=== PATIENT | male | born 1945 | race Caucasian/White ===

== ENCOUNTER → 2023-02-18 10:47 | Outpatient (BNVA) | payer MEDICARE, OTHER, SELFPAY | PROVIDERS: Family Provider Family Medicine; Visit Provider Podiatrist Foot & Ankle Surgery | DX: I73.9 Peripheral vascular disease, unspecified (principal); L60.3 Nail dystrophy; G62.9 Polyneuropathy, unspecified; B35.1 Tinea unguium | CPT/HCPCS: 11721; 99203 ==

== ENCOUNTER 2023-12-06 13:56 | Outpatient (RCR) | payer MEDICARE, OTHER, SELFPAY | END 2023-12-07 23:59 | disposition home or self-care (01) | LOC: SST 13:56 | PROVIDERS: PCP Family Medicine; Visit Provider Family Medicine | DX: R13.19 Other dysphagia (principal) | CPT/HCPCS: 92610 ==

== ENCOUNTER 2024-01-04 10:45 | Outpatient (CLI) | payer MEDICARE, OTHER, SELFPAY ==
--- NOTE | 2024-01-04 10:50 | FL_ITS ---
WS: [id number] Exam: FL barium swallow modifd [id number] Date/Time of Exam: 01/04/2024 10:58 AM Reason For Exam: Other dysphagia Fluoroscopy time: Minutes # of spot films: Modified barium swallow study is performed in conjunction with the speech therapy service. The patient experienced considerable difficulty initiating the swallowing process specifically elevat ing the tongue of the hard palate to initiate swallowing. 1 episode of mild penetration into the dhruv ngeal inlet was noted when the patient ingested thin liquid barium solutions. The patient tolerated t he remaining barium consistency foodstuffs without aspiration or penetration. The patient had to swal low thin liquid to ingest the barium tablet. No aspiration was identified. IMPRESSION: 1. The patient experienced a single episode of mild penetration into the laryngeal inlet when ingesti ng thin liquid barium. 2. Moderate dysfunction involving the oral pharyngeal phase of swallowing. See above discussion. 3. No aspiration was observed. A report and recommendations will also follow from the speech therapy service.
== END 2024-01-04 10:46 | disposition home or self-care (01) ==
PROVIDERS: PCP Family Medicine; Visit Provider Family Medicine
DX: R13.19 Other dysphagia (principal)
CPT/HCPCS: 74230; 92611

== ENCOUNTER 2024-01-22 15:43 | Emergency (ER) | payer MEDICARE, OTHER, SELFPAY ==
[2024-01-22] VITALS (21 sets, daily range): BP systolic 124–176; BP diastolic 75–128; PULSE 95–110; RESP 18–21; TEMP 36.7; O2SAT 88–96; BMI 25.1
--- NOTE | 2024-01-22 15:46 | XRR_ITS ---
PROCEDURE INFORMATION: Exam: XR Chest Exam date and time: 01/22/2024 3:52 PM Age: 78 years old Clinical indication: Shortness of breath; Additional info: AMS TECHNIQUE: Imaging protocol: Radiologic exam of the chest. Views: 1 view. COMPARISON: CR XR chest 2V* [id number] 05/02/2018 9:08 AM FINDINGS: Lungs: Stable calcified granuloma in the left lower lobe. No focal consolidation. No pulmonary edema. Pleural spaces: No pleural effusion. No pneumothorax. Heart/Mediastinum: Stable mild enlargement of the cardiac silhouette. Mediastinal contours are unremarkable. Vasculature: Stable vascular calcifications in the aorta. Bones/joints: Unremarkable for age. XR/XR chest 1V [id number] IMPRESSION: 1. No acute cardiopulmonary process. 2. Incidental/nonacute findings are listed in the report.
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
--- NOTE | 2024-01-22 16:11 | ECG_ITS ---
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 Measurements Intervals [place] Rate: 98 P: 56 IN: 159 QRS: 51 QRSD: 93 T: 59 QT: 363 QTc: 464 Interpretive Statements SINUS RHYTHM Compared to ECG 05/02/2018 22:39:12 T-wave abnormality no longer present Electronically Signed On 01-22-2024 21:42:57 CDT by Pablo Sosa M.D. [id number]
[2024-01-22 16:59] LABS: Influenza A by IFA negative (Negative); Influenza B by IFA negative (Negative)
[2024-01-22 17:45] LABS: Basophils % 0.4 %; Eosinophils # 0.3 10^3/uL (0.0-0.8); Eosinophils % 2.4 %; Hematocrit 38.2 % (37-53); Lymphocytes # 2.1 10^3/uL (0.8-4.8); Lymphocytes % 18.3 %; Mean Corpuscular HGB Conc 32.5 g/dL (30-55); Mean Corpuscular Hemoglobin 32.4 pg (27-33); Mean Corpuscular Volume 99.7 fl (82-101); Mean Platelet Volume 10.4 fL (7.4-10.4); Monocytes # 0.8 10^3/uL (0.2-0.9); Monocytes % 6.7 %; Neutrophils # 8.13 10^3/uL (1.8-7.7); Neutrophils % 71.9 %; Nucleated Red Blood Cells % 0 %; Platelet Count 254 10^3/cmm (157-399); Red Blood Count 3.83 10^6/uL (3.85-5.65); Red Cell Distribution Width 15.3 % (12.1-15.1)
[2024-01-22 18:06] LABS: Alanine Aminotransferase 17 U/L (0-41); Alkaline Phosphatase 59 U/L (40-130); Anion Gap 12.4 (5-19); Aspartate Amino Transferase 17 U/L (0-40); Blood Urea Nitrogen 17 mg/dL (8-23); Calcium 9.6 mg/dL (8.5-10.5); Carbon Dioxide 28 mmol/L (22-29); Chloride 104 mmol/L (98-107); Creatinine Clr Calc Pharmacy 67.8374; Glucose 107 mg/dL (65-115); Osmolality Calculated 292 mOsm/kg (285-295); Potassium 4.4 mmol/L (3.5-5.1); Sodium 140 mmol/L (136-145); Total Bilirubin 0.2 mg/dL (0.15-1.2)
[2024-01-22 18:08] LABS: Acetaminophen < 5.0 ug/mL (10-30); Alcohol Level < 10 mg/dL (0-10); Salicylate < 0.3 mg/dL (3-10)
--- NOTE | 2024-01-22 18:25 | CTR_ITS ---
PROCEDURE INFORMATION: Exam: CT Head Without Contrast Exam date and time: 01/22/2024 6:49 PM Age: 78 years old Clinical indication: Altered mental status/memory loss; Confusion or disorientation; Additional info: AMS TECHNIQUE: Imaging protocol: Computed tomography of the head without contrast. Sagittal and coronal reformatted images were created and reviewed. Radiation optimization: All CT scans at this facility use at least one of these dose optimization techniques: automated exposure control; mA and/or kV adjustment per patient size (includes targeted exams where dose is matched to clinical indication); or iterative reconstruction. COMPARISON: No relevant prior studies available. RADIATION DOSE METRICS: Total DLP (mGy-cm): 2274.5 FINDINGS: Brain: No acute intracranial hemorrhage. No acute infarct. No intra-axial or extra-axial masses. García-white matter differentiation is preserved. No cerebral edema. No extra-axial fluid collections. No midline shift. No evidence for Chiari 1 malformation. Moderate atrophy of the brain parenchyma. Moderately decreased attenuation in the deep white matter, consistent with moderate chronic microangiopathic change. Cerebral ventricles: 5.1 x 6.1 cm hypodense focus in the anterior 3rd ventricle consistent with a colloid cyst (series 8, image 20). No hydrocephalus. Paranasal sinuses: Visualized paranasal sinuses are clear. Mastoid air cells: Mastoid air cells are clear bilaterally. Orbital cavities: No acute abnormality in the visualized orbits. Bones/joints: No acute fracture. Soft tissues: No acute abnormality of the extracranial soft tissues. Vasculature: Moderate atherosclerotic changes in the visualized arteries. CT/CT head wo con* [id number] IMPRESSION: 1. No acute abnormality of the brain. 2. Small hypodense focus in the anterior 3rd ventricle consistent with a colloid cyst. 3. Moderate atrophy of the brain parenchyma. 4. Moderate chronic white matter microangiopathic change. 5. Incidental/nonacute findings are listed in the report.
[2024-01-22 18:27] LABS: Adenovirus Not Detected (NOT DETECT); Chlamydia Pneumoniae Not Detected (NOT DETECT); Coronavirus 229E,HKU1,NL63,OC4 Not Detected (NOT DETECT); Human Metapneumovirus Not Detected (NOT DETECT); Human Rhinovirus/Enterovirus Not Detected (NOT DETECT); Influenza A Not Detected (NOT DETECT); Influenza A H1 Not Detected (NOT DETECT); Influenza A H1-2009 Not Detected (NOT DETECT); Influenza A H3 Not Detected (NOT DETECT); Influenza B Not Detected (NOT DETECT); Mycoplasma Pneumoniae Not Detected (NOT DETECT); Parainfluenza Virus Type 1 Not Detected (NOT DETECT); Parainfluenza Virus Type 2 Not Detected (NOT DETECT); Parainfluenza Virus Type 3 Not Detected (NOT DETECT); Parainfluenza Virus Type 4 Not Detected (NOT DETECT); Respiratory Syncytial Virus A Not Detected (NOT DETECT); Respiratory Syncytial Virus B Not Detected (NOT DETECT); SARS-COV-2 Not Detected (NOT DETECT)
--- NOTE | 2024-01-22 18:38 | PC.NURSE ---
Pt had orginally reported that she arrived in town yesterday was staying with a friend and today that friend dropped her off here, however now she is saying she arrived around noon today was assisted by a yarsanism deacon to get into her daughters house however was unable to get up the stairs so the Yazdanism Deacon took the pt to his house then brought her here. This mortgage underwriter asked who would be helping her at home and changing her dressings, pt stated I have no home and my daughter is resting so I have no one who can help me . This mortgage underwriter took the number of the pt's daughter Criss Matta, [phone], I attempted to call but was only able to leave a message. Pt is reporting she has an appt with wound care tomorrow. Will try to call daughter again to investigate the situation.
[2024-01-22 18:55] LABS: Amphetamines Screen Urine Negative (Negative); Barbiturates Screen Urine Negative (Negative); Benzodiazepines Screen Urine Positive (Negative); Cocaine Screen Urine Negative (Negative); Opiate Screen Urine Negative (Negative); PCP Screen Urine Negative (Negative); THC Screen Urine Negative (Negative)
[2024-01-22 19:01] LABS: Amorphous Sediment Urine TRACE /hpf; Bacteria Urine TRACE /hpf; Bilirubin Urine Neg (Negative); Blood Urine Neg (Negative); Glucose Urine UA Norm (Normal); Ketones Urine Negative (Negative); Leukocyte Esterase Urine Negative (Negative); Mucus Urine TRACE /hpf; Nitrate Urine Negative (Negative); Protein Urine Neg (Negative); RBC Urine 0-4 /hpf (0-2); Squamous Epithelial Cell Urine 0-4 /hpf (0-5); Urine Appearance Clear (CLEAR); Urine Color Yellow (Yellow); Urobilinogen Urine Neg (Negative); WBC Urine 0-4 /hpf (0-5); pH Urine 6 (5-7)
[2024-01-22 19:20] LABS: Thyroid Stimulating Hormone 2.02 uIU/mL (0.27-4.20)
[2024-01-22] MEDS: OLANZapine 10 mg ODT 20 MG PO (19:48)
[2024-01-22 21:27] LABS: RSV Transfer Patient (ED) Negative (Negative)
[2024-01-22] MEDS: LORazepam 2 mg/mL INJ 10 mL MDV IM (21:48)
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
[2024-01-23 00:30] VITALS: BP 145/77; PULSE 105; RESP 21; O2SAT 95
--- NOTE | 2024-01-23 01:14 | DCPLANNER ---
[place] facilities contacted: [facility] Called 01/22/2024 at 2033. Per Phoebe, they have no beds available. [facility] Called 01/22/2024 at 2035. Per Eligio, they cannot accept this patient due to his being a fall risk. [facility] 01/22/2024 at 2037[facility] 01/22/2024 at 2039. Spoke to Bonnie, faxed paperwork at [phone]. Denied for acuity at 2338. [facility] Called 01/22/2024 at 2338. Per Lillian, they have no beds available. [facility] Called 01/22/2024 at 2339. Spoke to Dora, paperwork faxed at [phone]. Accepted by Dr. Stephen 01/23/2024 at 0044.
[2024-01-23] MEDS: ziprasidone 20 mg/mL SDV IM (01:49)
[2024-01-23] MEDS: LORazepam 2 mg/mL INJ 10 mL MDV IM (01:49)
--- NOTE | 2024-01-23 01:51 | PC.NURSE ---
at 0100 cfo controller alerted RN that pt was getting out of bed. pt refused to sit back into the bed despite being fall risk. pt unable to comprehend due to AMS. staff assisted pt back into bed and redirected him. medications administered at time listed in JAN. pt calmed down at the time ems arrived.
[2024-01-23 01:56] VITALS: BP 145/77; PULSE 105; RESP 21; TEMP 36.7; O2SAT 95
== END 2024-01-23 02:00 ==
PROVIDERS: Emergency Medicine; Emergency Provider Emergency Medicine; PCP Family Medicine
DX: F03.911 Unspecified dementia, unspecified severity, with agitation (principal); Z11.52 Encounter for screening for COVID-19
CPT/HCPCS: 36415; 70450; 71045; 80053; 80306; 80307; 81001; 84443; 85025; 87635; 87804; 87899; 93005; 96372; 99285; J2060; J3486

== ENCOUNTER 2025-11-01 15:42 | Inpatient (IN) | payer MEDICARE, OTHER, MEDICAID, SELFPAY ==
[2025-11-01 15:44] VITALS: BP 122/86; PULSE 66; RESP 16; TEMP 36.4; O2SAT 92
--- NOTE | 2025-11-01 15:50 | CTR_ITS ---
PROCEDURE INFORMATION: Exam: CT Cervical Spine Without Contrast Exam date and time: 11/01/2025 3:55 PM Age: 80 years old Clinical indication: Injury or trauma; Fall; Blunt trauma TECHNIQUE: Imaging protocol: Computed tomography of the cervical spine without contrast. Radiation optimization: All CT scans at this facility use at least one of these dose optimization techniques: automated exposure control; mA and/or kV adjustment per patient size (includes targeted exams where dose is matched to clinical indication); or iterative reconstruction. COMPARISON: CT head wo con* [id number] 01/22/2024 6:49 PM RADIATION DOSE METRICS: Total DLP (mGy-cm): 310.06 FINDINGS: Bones: There is loss of the normal lordosis of the cervical spine. Multilevel degenerative changes are present with disc space narrowing and marginal osteophytes. No acute fractures are identified. Neural foraminal narrowing due to degenerative changes is present on the right at C3-C4 on the left at C4-C5, bilaterally at C5-C6 , C6-C7 , and C7-T1. Lungs: There is centrilobular emphysema. Soft tissues: Unremarkable. CT/CT cervical spin wo con* [id number] IMPRESSION: Multilevel degenerative changes. No acute abnormality identified.
--- NOTE | 2025-11-01 15:50 | XRR_ITS ---
PROCEDURE INFORMATION: Exam: XR Chest Exam date and time: 11/01/2025 4:17 PM Age: 80 years old Clinical indication: Fall TECHNIQUE: Imaging protocol: Radiologic exam of the chest. Views: 1 view. COMPARISON: CR XR chest 1V [id number] 01/22/2024 3:52 PM FINDINGS: Lungs: No pulmonary consolidation. Pleural spaces: No pneumothorax. No pleural effusion. Heart/Mediastinum: Unremarkable. No cardiomegaly. Bones/joints: Unremarkable. XR/XR chest 1V portable [id number] IMPRESSION: No acute cardiopulmonary abnormality.
--- NOTE | 2025-11-01 15:50 | XRR_ITS ---
PROCEDURE INFORMATION: Exam: XR Right Hip Exam date and time: 11/01/2025 4:05 PM Age: 80 years old Clinical indication: Fall, hip pain TECHNIQUE: Imaging protocol: Radiologic exam of the right hip. Views: 2 or 3 views hip with pelvis when performed. COMPARISON: No relevant prior studies available. FINDINGS: Bones/joints: There is a fracture of the right femoral neck with mild displacement and impaction. Alignment of the right hip is maintained. Pelvic ring appears intact. Bilateral hip osteoarthritis. Degenerative changes of the lower lumbar spine. Soft tissues: Unremarkable. XR/XR hip RT 2-3V wo/w pel* [id number] IMPRESSION: Right femoral neck fracture with mild displacement and impaction.
--- NOTE | 2025-11-01 15:50 | CTR_ITS ---
PROCEDURE INFORMATION: Exam: CT Head Without Contrast Exam date and time: 11/01/2025 3:55 PM Age: 80 years old Clinical indication: Injury or trauma; Fall; Blunt trauma (contusions or hematomas); Loss of consciousness unknown TECHNIQUE: Imaging protocol: Computed tomography of the head without contrast. Radiation optimization: All CT scans at this facility use at least one of these dose optimization techniques: automated exposure control; mA and/or kV adjustment per patient size (includes targeted exams where dose is matched to clinical indication); or iterative reconstruction. COMPARISON: CT head wo con* [id number] 01/22/2024 6:49 PM RADIATION DOSE METRICS: Total DLP (mGy-cm): 1037.75 FINDINGS: Brain: No acute intracranial hemorrhage. There is a hyperattenuating mass in the 3rd ventricle which measures 0.8 x 0.8 cm. This is enlarged compared to the prior study when it measured 0.7 x 0.5 cm. No other masses are identified. No edema identified. Cerebral ventricles: There is generalized enlargement of the ventricles, sulci and cisterns consistent with involutional changes. No midline shift is identified. Paranasal sinuses: Visualized sinuses are unremarkable. No fluid levels. Mastoid air cells: Visualized mastoid air cells are well aerated. Bones: Unremarkable. No acute fracture. Soft tissues: Unremarkable. CT/CT head wo con* [id number] IMPRESSION: 1. No acute abnormality identified. 2. 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 3. Generalized involutional changes.
--- NOTE | 2025-11-01 15:50 | ECG_ITS ---
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1945 Requested By: Svetlana Ruiz Order Number: [id number] Reading MD: Measurements Intervals Lamy Rate: 66 P: 22 [place]: 156 QRS: 213 QRSD: 166 T: 8 QT: 504 QTc: 529 Interpretive Statements SINUS RHYTHM WITH OCCASIONAL VENTRICULAR PREMATURE COMPLEXES POSSIBLE LEFT ATRIAL ENLARGEMENT [-0.1mV P-WAVE IN V1/V2] RIGHT AXIS DEVIATION [QRS AXIS > 100] RIGHT BUNDLE BRANCH BLOCK AND POSSIBLE RIGHT VENTRICULAR HYPERTROPHY [RBBB, 1.5 mV R IN V1, RAD] ANTEROSEPTAL MYOCARDIAL INFARCTION , OF INDETERMINATE AGE [40+ ms Q WAVE IN V1-V4] [email or web address]
--- OUTSIDE RECORDS SUMMARY | 2025-11-01 15:50 | XMS_ITS | Data Portability ---
Author Organization [facility] Abdullahi Emilia [facility] Doroteo Fowler, [facility] Address [address] [address] Care Team Providers Care Charge Master Specialist Name Role Phone MICHELLE LIM Primary Care Provider Unavailabl e Assessment Encounter Date Assessment Date Assessment LastModified by Organization Details LastModified Time 04/16/2025 04/16/2025 I reviewed the patient's recent labs, vital signs, medications, and plan of care. I recommend no other change sat this time. Not available 04/24/2025 15:38:54 08/20/2025 08/20/2025 I reviewed the patient's recent labs, vital signs, medications, and plan of care. I recommend no other change sat this time. [email or web address] Not available 09/13/2025 14:02:29 10/15/2025 10/15/2025 I have reviewed the resident's vital signs, current labs, current meds, and plan of care and recommend no changes at this time. Not available 10/15/2025 16:26:57 Plan of Treatment Reminders Order Date Submit Date Provider Last Modified By Organization Details Last Modified Time Details Appointments None record ed. Lab None record ed. Referral None record ed. Procedures None record ed. Surgeries None record ed. Imaging None record ed. Medication Orders None record ed. Patient TargetsNo targets recorded. Patient InstructionsNo instructions recorded. Reason for Referral None Reported. Problems Name Problem SNOMED Code Status Onset Date Resolution Date Notes Provider Name and Address Organization Details Recorded Time Myocardi al infarcti on 46448928 Completed 202201/02/2025 Myocardi al Infarcti on; 2003; 12/22/19 2:17PM by Karen Juarez, Office Visit; Promoted ; acuity set as *; Removal Reason: resolved DILMA HAEFRYLAND null, [facility] 5 16:17:00 Multiple actinic keratose s 497054143 Active 2022 DILMA HAEFRYLAND null, [facility] 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 5 12:52:12 [facility] hyperten xochitl 07782412 Active 2022 [facility]LAND [facility] 5 16:16:21 Esophage al dysphagi a 00576833 Active 2023 DILMA CARMONA null, [facility] 5 16:16:16 Chronic obstruct letha pulmonar y disease 65740847 Active 2023 DILMA pretty, [facility] 5 16:16:06 Hallucin ations 2031470 Completed 202301/02/2025 [facility] 5 16:16:30 Vascular dementia with behavior al disturba [facility] 14939301819 9104 Active 2024 EPHRAIM pretty, [facility] 5 12:52:08 Anxiety disorder 013751675 Active 2024 [facility] 5 12:51:47 Problem Notes None recorded. Medical Equipment None Reported. Allergies Allergen ID Allergen Name Allergen Category Reaction Reaction Severity Criticality Documentation Date Start Date Code Code System Note Provider Name and Address Organization Details Recorded Time 2254 Augmentin medicatio n Not available Not available Not available 03/03/2023 96712 2 RxNorm JOSE DAVE maria de jesus [facility] 3 12:24:35 22307 cephalexi n medicatio n Not available Not available Not available 04/16/20251 RxNorm EPHRAIM MARCY pretty [facility] 5 12:48:36 Medications Name Sig Start Date Stop Date Status Note LastModified by Organization Details LastModified Time fluticaso ne 250 mcg-salme terol 50 mcg/dose blistr powdr for inhalatio n INHALE 1 DOSE BY MOUTH TWICE DAILY 04/16 completed Not Available Not Available Not Available doxycycli ne hyclate 100 mg capsule 03/04 completed Not Available Not Available Not Available trazodone 50 mg tablet Take 1 tablet every day by oral route at bedtime. active Not Available Not Available No t Available cetirizin e 10 mg tablet daily 04/16 completed Recorded 10/16/20 21 9:47AM by Karen Juarez, Office Visit; Refill Quantity : 30; Tablet; Not Available Not Available Not Available pravastat in 40 mg tablet Take 1 tablet by mouth once daily active Not Available Not Available No t Available donepezil 10 mg tablet TAKE 1 TABLET BY MOUTH ONCE DAILY active Not Available Not Available No t Available lisinopri l 20 mg tablet Take 1 tablet by mouth once daily active Not Available Not Available No t Available prednison e 20 mg tablet TAKE 1 TABLET BY MOUTH ONCE DAILY active Not Available Not Available No t Available melatonin 3 mg tablet Take 1 tablet every day by oral route at bedtime. active Not Available Not Available No t Available olanzapin e 2.5 mg tablet TAKE 1 TABLET BY MOUTH TWICE DAILY 02/07 completed Not Available Not Available Not Available aspirin 81 mg tablet,de layed release one daily 2007 active Not Available Not Available Not Avai lable [facility] 10 mg tablet daily 04/16 completed Recorded 10/16/20 21 9:47AM by Karen Juarez, Office Visit; Refill Quantity : 30; Tablet; Not Available Not Available Not Available albuterol sulfate HFA 90 mcg/actua tion aerosol inhaler INHALE 2 PUFFS BY MOUTH EVERY 4 HOURS NEEDED 04/16 completed Not Available Not Available Not Available fluoxetin e 20 mg capsule Take 1 capsule every day by oral route. active Not Available Not Available No t Available memantine 10 mg tablet Take 1 tablet by mouth twice daily active Not Available Not Available No t Available olanzapin e-fluoxet ine 6 mg-25 mg capsule 04/16 completed Not Available Not Available Not Available lisinopri l daily 08/30 completed RM/bn; Recorded 10/25/20 22 8:22AM by Michelle Lim MD, Refill Request; Refill Quantity : 90; Tablet; Not Available Not Available Not Available Multivita mins daily 04/16 completed 0; Recorded 12/22/19 23 2:17PM by Karen Juarez, Office Visit; Not Available Not Available Not Available donepezil daily 08/30 completed continue this. RM/sd; Recorded 09/28/20 22 7:34AM by Michelle Lim MD, Refill Request; Refill Quantity : 90; Tablet; Not Available Not Available Not Available Vitals Date Recorded Body height Body mass index (BMI) Body weight Oxygen saturation Heart rate Body temperature Systolic And Diastolic Provider Name and Address Organization Details Last Updated DateTime 5 167.64 cm 28.1 kg/m2 12792.0 7 g 95 % 68 /min 97.9 [degF] 139/70 mm[Hg] [facility] 5 11:53:32 Date Recorded Body height Body mass index (BMI) Body weight Oxygen saturation Heart rate Body temperature Systolic And Diastolic Provider Name and Address Organization Details Last Updated DateTime 5 167.64 cm 29.1 kg/m2 12957.6 3 g 96 % 69 /min 97.8 [degF] 136/82 mm[Hg] [facility] 5 11:01:47 Date Recorded Body height Body mass index (BMI) Body weight Oxygen saturation Heart rate Respiratory rate Body temperature Systolic And Diastolic Provider Name and Address Organization Details Last Updated DateTime 5 167.64 cm 28.7 kg/m2 10520.4 4 g 96 % 62 /min 19 /min 97.5 [degF] 126/85 mm[Hg] EPHRAIM [facility] 5 12:38:04 Date Recorded Body height Body mass index (BMI) Body weight Oxygen saturation Heart rate Respiratory rate Body temperature Systolic And Diastolic Provider Name and Address Organization Details Last Updated DateTime 5 167.64 cm 28.2 kg/m2 85318.6 6 g 95 % 71 /min 20 /min 98.7 [degF] 102/68 mm[Hg] DILMA ALISAGAURANG [facility] 5 12:47:30 Date Recorded Body height Body mass index (BMI) Body weight Oxygen saturation Heart rate Respiratory rate Body temperature Systolic And Diastolic Provider Name and Address Organization Details Last Updated DateTime 5 167.64 cm 27.9 kg/m2 87144.4 8 g 94 % 70 /min 16 /min 98 [degF] 128/60 mm[Hg] [facility] 10:17:31 Social History Question Answer Notes LastModified by Organizat ion Details LastModified Time Tobacco Smoking Status Never Smoker VICKI pretty [facility] 04/22/2023 13:48:16 What Was The Date Of Your Most Recent Tobacco Screening? 04/16/2025 [email or web address] Information not available 04/16/2025 Sex: Unknown Functional Status Question Answer Note LastModified by Organization D etails LastModified Time Do you or have you ever used any other forms of tobacco or nicotine? No [email or web address] Information not available 04/16/2025 What is your level of alcohol consumption? None [email or web address] Information not available 04/22/2023 Do you or have you ever used any nicotine-free cigarettes, vape, or chewing tobacco? No [email or web address] Information not available 04/16/2025 Mental Status None recorded. Family History Nothing Reported. Medical History No medical history recorded. Immunizations Vaccine Type Date Status Note Provider Nam e and Address Organization Details Recorded Time Influenza, split virus, trivalent, preservative 2 completed Not Available [facility] 06/04/2023 02:43:47 Influenza, split virus, trivalent, preservative 1 completed Not Available [facility] 06/04/2023 02:43:47 pneumococcal polysaccharide PPV23 2 completed Not Available [facility] 06/04/2023 02:43:47 pneumococcal polysaccharide PPV23 7 [facility] 04/16/2025 12:48:19 Influenza, split virus, trivalent, preservative 4 completed Not Available [facility] 06/04/2023 02:43:47 Influenza, high-dose, trivalent, PF 5 completed Not Available [facility] 10/15/2025 08:16:12 COVID-19, mRNA, LNP-S, PF, 30 mcg/0.3 mL dose 1 completed Not Available [facility] 10/15/2025 08:16:12 COVID-19, mRNA, LNP-S, PF, 30 mcg/0.3 mL dose 1 completed Not Available [facility] 10/15/2025 08:16:12 COVID-19, mRNA, LNP-S, PF, 30 mcg/0.3 mL dose 1 completed Not Available [facility] 10/15/2025 08:16:12 COVID-19, mRNA, LNP-S, PF, 30 mcg/0.3 mL dose 2 completed Not Available [facility] 10/15/2025 08:16:12 zoster recombinant 2 completed Not Available [facility] 10/15/2025 08:16:12 Tdap 2 completed Not Available [facility] 10/15/2025 08:16:12 Influenza, high-dose, quadrivalent, PF 2 completed Not Available [facility] 10/15/2025 08:16:12 COVID-19, mRNA, LNP-S, bivalent, PF, 30 mcg/0.3 mL dose 2 completed Not Available [facility] 10/15/2025 08:16:12 zoster recombinant 2 completed Not Available [facility] 10/15/2025 08:16:12 COVID-19, mRNA, LNP-S, PF, 50 mcg/0.5 mL 3 completed Not Available [facility] 10/15/2025 08:16:12 Influenza, high-dose, quadrivalent, PF 3 completed Not Available [facility] 10/15/2025 08:16:12 COVID-19, mRNA, LNP-S, PF, 50 mcg/0.5 mL 4 completed Not Available [facility] 10/15/2025 08:16:12 COVID-19, mRNA, LNP-S, PF, 50 mcg/0.5 mL 4 completed Not Available [facility] 10/15/2025 08:16:12 Influenza, high-dose, quadrivalent, PF 1 completed EPHRAIM VIDAL null, [facility] 04/16/2025 12:48:19 Pneumococcal conjugate PCV 13 6 completed EPHRAIM VIDAL null, [facility] 04/16/2025 12:48:20 Influenza, high-dose, trivalent, PF 9 completed EPHRAIM VIDAL null, [facility] 04/16/2025 12:48:20 Influenza, high-dose, trivalent, PF 6 completed EPHRAIM VIDAL null, [facility] 04/16/2025 12:48:20 Influenza, high-dose, trivalent, PF 7 completed EPHRAIM VIDAL null, [facility] 04/16/2025 12:48:20 Influenza, high-dose, trivalent, PF 8 completed EPHRAIM VIDAL [facility] 04/16/2025 12:48:20 COVID-19, mRNA, LNP-S, PF, 50 mcg/0.5 mL 5 completed Not Available [facility] 10/15/2025 08:16:12 Past Encounters Encounter ID Performer Location Encounter Start Date Encounter Closed Date Diagnosis/Indication Diagnosis SNOMED-CT Code Diagnosis ICD10 Code Diagnosis IMO Codes Diagnosis Note [id number] SOMMER ARGUETA [facility] [address] [place], [place] [address] 03/04/2023 13:50:16 03/04/2023 19:09:56 Adult health examination 039678641 Z00.00 Screening for cardiovascular system disease 610827642 Z13.6 Hyperglycemia 05556762 R 73.9 [id number] Michelle Lim MD [facility] [address] [place], [place] [address] 04/22/2023 13:36:00 04/22/2023 15:15:03 Multiple actinic keratoses 794603074 L57.0 Primary de generative dementia of the Alzheimer type, senile onset 654485829 G30.1 Essential hypertension 99246304 I10 [id number] Michelle Lim MD [facility] [address] [place], [place] [address] 08/30/2023 15:44:42 08/30/2023 18:59:56 Essential hypertension 22435382 I10 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 [id number] Michelle Lim MD [facility] [address] [place] [address] 01/13/2024 14:19:20 01/13/2024 15:25:54 Dementia 36350407 F03.90 Progressiv e. Chronic ob structive pulmonary disease 73993727 J44.9 Hallucinations 6465477 R 44.3 Esophageal dysphagia 408 60364 R13.19 swallowing a little better. [id number] BERNADETTE GOOD PA-C [facility] [address] [place], [place] [address] 12/19/2024 12:28:37 01/17/2025 09:45:08 Dementia 62801769 F03.90 current:DE PAKOTE 250MG TID, DONEPEZIL 10MG QID, MELATONIN, OLANZAPRIN E/paroxeti ne, TRAZODONE 50MG QHSI would like to GDR his Zyprexa/pa roxetine combo pill by reducing to half does. If does well will contineu to GDR. Monitor behaviors. Essential hypertension 30120407 I10 [id number] BERNADETTE GOOD PA-C [facility] [address] [place] [address] 01/09/2025 11:59:32 02/04/2025 13:16:03 Vascular dementia with behavioral disturbance 7244708283 62070 F01.518 GDR DECREASE OLANZAPINE /FLUOXETIN E 6/25mg po qdQD DECREASE DEPAKOTE 250MG BID (from tid)monito r for increase distress, anxiety or behaviors. [id number] BERNADETTE GOOD PA-C [facility] [address] [place] [address] 02/06/2025 12:04:53 02/08/2025 14:31:39 Dementia 81783728 F03.90 Chronic ob structive pulmonary disease 26568119 J44.9 stable on AdvairCCA form filled out during today's office visit Hyperlipidemia 68195543 E78.5 stable on pravastati n Vascular d ementia with behavioral disturbance 0200158724 52464 F01.518 3.6.25 GDR DECREASE OLANZAPINE /FLUOXETIN E 6/25mg po qdQD DECREASE DEPAKOTE 250MG BID (from tid)4.2.25 d/c zyprexa continue fluoxetine 20mg qd decrease depakote 12.5mg 1 po bid x 7 days then d/cmonitor for increase distress, anxiety or behaviors. [id number] BERNADETTE GOOD PA-C [facility] [address] [place] [address] 5 03/13/2025 12:38:39 03/29/2025 16:53:39 Dementia 97418354 F03.90 [id number] DOING WELL OFF DEPAKOTE AND ZYPREXASTI LL ON FLUOXETINE 20MG QDTRAZODON E 50MG HS [id number] Jaxon Good MD [facility] [address] [place] [address] 5 04/16/2025 10:41:04 04/24/2025 17:11:26 Dementia 59927642 F03.90 [id number] Essential hypertension 20675281 I10 [id number] Jaxon Good MD [facility] [address] [place] [address] 5 06/18/2025 10:27:42 06/19/2025 13:38:28 Acute exacerbation of chronic obstructive pulmonary disease 842258213 J44.1 [id number] [facility]. macrolide, steroid. [id number] Jaxon Good MD [facility] [address] [place] [address] 5 08/20/2025 08:00:51 09/16/2025 07:50:54 Vascular dementia with behavioral disturbance 5840767064 78371 F01.229 [id number] BERNADETTE GOOD PA-C [facility] [address] [place] [address] 5 09/18/2025 12:41:20 10/15/2025 17:19:29 Vascular dementia 568471970 F01.B4 0941218050 ativan .5mg1 po qd prn x 30 days prn monitor usage and if consistant will continue if he is not using then we will dcHe is already on aracept and namenda and SSRI and trazadone. [id number] Jaxon Good MD [facility] [address] [place] [address] 10/15/2025 08:16:00 10/16/2025 12:17:18 Vascular dementia with behavioral disturbance 6608712074 28900 F01.518 Health Concerns Section Related Observation LastModified by Organization Detai ls LastModified Time None Recorded Concern Status LastModified by Organization Details LastModified Time None Recorded Advance Directives Directive None Recorded Payers Insurance Date Sequence Insurance Name Policy Number Policy Ortiz Covered Member ID Ortiz Member ID Guarantor Name 10/14/2025 1 [place]/A DVANTAGE - PPO) [id number] Dong Jackson [id number] Dong Jackson Notes Date Note Type Note Provider Name and Address Organization Details Recorded Time 04/16/2025 text/html Hypertension IM/FMReported by PatientHPIFor quality, patient reportshere for check-up. For severity, patient reportsmild. For onset/timing, patient reportsgradual onset. For alleviating factors, patient reportsmedication. For associated symptoms, patient reportsno shortness of breathandno palpitations. DementiaReported by Patient Patient seen today by Dr. Good at [facility] Jaxon Good MD [address] [place] [address], [phone], [facility] 04/24/2025 15:39:10 06/18/2025 text/html Hypertension IM/FMReported by PatientHPIFor quality, patient reportshere for check-up. For severity, patient reportsmild. For onset/timing, patient reportsgradual onset. For alleviating factors, patient reportsmedication. For associated symptoms, patient reportsno shortness of breathandno palpitations. DementiaReported by Patientunchanged and without sign of progression since last visit Patient seen today by Dr. Good at [facility] patient reports having shortness of breath. he cannot say how long he has had this just that it is harder to breathe. he was a smoker but not for some time. he denies fever or chills. cough with clear sputumwheezing Jaxon Good MD [address] [place] [address], [phone], [facility] 06/18/2025 14:56:16 08/20/2025 text/html Hypertension IM/FMReported by PatientHPIFor quality, patient reportshere for check-up. For severity, patient reportsmild. For onset/timing, patient reportsgradual onset. For alleviating factors, patient reportsmedication. For associated symptoms, patient reportsno shortness of breathandno palpitations. DementiaReported by Patientunchanged and without sign of progression since last visit Patient seen today by Dr. Good at [facility] Jaxon Good MD [address] [place] [address], [phone], [facility] 09/13/2025 14:02:39 09/18/2025 text/html DementiaReported by PatientHPIFor associated symptoms, patient reportsdepression. For quality, patient reportsshort term memory loss,disorientation to place, anddisorientation to time. For severity, patient reportsmoderate. For duration, patient reports6 months. Pt ike wants him reevaluated for increase in anxiety. Staff states he is good with them but when he talks to his he will get weepy and want to go home. She has not been able to come visit as much due to her own health issues. Jaxon Good MD [address] [place] [address], [phone], [facility] 10/15/2025 12:50:01 10/15/2025 text/html Hypertension IM/FMReported by PatientHPIFor quality, patient reportshere for check-up. For severity, patient reportsmild. For onset/timing, patient reportsgradual onset. For alleviating factors, patient reportsmedication. For associated symptoms, patient reportsno shortness of breathandno palpitations. DementiaReported by Patientunchanged and without sign of progression since last visit per staff he is pleasantly confused Patient seen today by Dr. Good at [facility] Jaxon Good MD [address] [place] [address], [phone], [facility], Doroteo 10/15/2025 16:27:10
--- OUTSIDE RECORDS SUMMARY | 2025-11-01 15:50 | XMS_ITS | Clinical Summary ---
Author Organization [employer] [facility] Address [address] 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
--- OUTSIDE RECORDS SUMMARY | 2025-11-01 15:50 | XMS_ITS | Continuity of Care Document ---
Author Organization [facility] Doroteo Fowler, [facility] ([facility]) Address [address] [place] [address] Care Team Providers Care Bowling Alley Attendant Name Role Phone MICHELLE LIM Primary Care Provider Unavailabl e Assessment Encounter Date Assessment Date Assessment LastModified by Organization Details LastModified Time 08/20/2025 08/20/2025 I reviewed the patient's recent labs, vital signs, medications, and plan of care. I recommend no other change sat this time. 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 5 12:52:12 Essentia l hyperten xochitl 76783383 Active 2022 DILMA CARMONA null, [facility] 5 16:16:21 Esophage al dysphagi a 33629532 Active 2023 DILMA CARMONA [facility] [place], [facility] 5 16:16:16 Chronic obstruct letha pulmonar y disease 76328182 Active 2023 DILMA CARMONA [facility] [place], [facility] 5 16:16:06 Hallucin ations 1189427 Completed 202301/02/2025 DILMA CARMONA [facility] 5 16:16:30 Vascular dementia with behavior al disturba [facility] 73342996457 9104 Active 2024 EPHRAIM VIDAL [facility] 5 12:52:08 Anxiety disorder 715404853 Active 2024 EPHRAIM VIDAL [facility] 5 12:51:47 Problem Notes None recorded. Medical Equipment None Reported. Allergies Allergen ID Allergen Name Allergen Category Reaction Reaction Severity Criticality Documentation Date Start Date Code Code System Note Provider Name and Address Organization Details Recorded Time 2253 Augmentin medicatio n Not available Not available Not available 03/03/2023 33458 2 RxNorm JOSE JOLIE [facility] 3 12:24:35 88444 cephalexi n medicatio n Not available Not available Not available 04/16/2025 2231 RxNorm EPHRAIM VIDAL [facility] 12:48:36 Medications Name Sig Start Date Stop [...] 2007 active Not Available Not Available Not Avmaritza magallanes [address] 10 mg tablet daily 04/16 [...] l daily 08/30 completed RM/bn; Recorded 10/25/20 8:22AM by Michelle Lim MD, Refill Request; Refill Quantity : 90; Tablet; Not Available Not Available Not Available Multivita mins daily 04/16 completed 0; Recorded 12/22/19 2:17PM by Karen Juarez, Office Visit; Not Available Not Available Not Available donepezil daily 08/30 completed continue this. RM/sd; Recorded 09/28/20 7:34AM by Michelle Lim MD, Refill Request; Refill Quantity : 90; Tablet; Not Available Not Available Not Available Vitals Date Recorded Body height Body mass index (BMI) Body weight Oxygen saturation Heart rate Respiratory rate Body temperature Systolic And Diastolic Provider Name and Address Organization Details Last Updated DateTime 167.64 cm 28.7 kg/m2 43317.4 4 g 96 % 62 /min 19 /min 97.5 [degF] 126/85 mm[Hg] EPHRAIM VIDAL [facility] 12:38:04 Social History Question Answer Notes LastModified by Organizat ion Details LastModified Time Tobacco Smoking Status Never Smoker VICKI pretty [facility] 04/22/2023 13:48:16 What Was The Date Of Your Most Recent Tobacco Screening? 04/16/2025 [email or web address] Information not available 04/16/2025 Sex: Unknown Functional Status Question Answer Note LastModified by Organization D etails LastModified Time Do you or have you ever used any other forms of tobacco or nicotine? No [email or web address] Information not available 04/16/2025 What is your level of alcohol consumption? None [email or web address] Information not available 04/22/2023 Do you or have you ever used any nicotine-free cigarettes, vape, or chewing tobacco? No Information not available 04/16/2025 Mental Status None recorded. Family History Nothing Reported. Medical History No medical history recorded. Immunizations Vaccine Type Date Status Note Provider Brian chong and Address Organization Details Recorded Time Influenza, split virus, trivalent, preservative 2 completed Not Available [facility] 06/04/2023 02:43:47 Influenza, split virus, trivalent, preservative 1 completed Not Available [facility] 06/04/2023 02:43:47 pneumococcal polysaccharide PPV23 2 completed Not Available [facility] 06/04/2023 02:43:47 pneumococcal polysaccharide PPV23 7 completed PEHRAIM pretty [facility] 04/16/2025 12:48:19 Influenza, split virus, trivalent, preservative 4 completed Not Available [facility] 06/04/2023 02:43:47 Influenza, high-dose, trivalent, PF 5 completed Not Available [facility] 10/15/2025 08:16:12 COVID-19, mRNA, LNP-S, PF, 30 mcg/0.3 mL dose 1 completed Not Available [facility] 10/15/2025 08:16:12 COVID-19, mRNA, LNP-S, PF, 30 mcg/0.3 mL dose 1 completed Not Available [facility] 10/15/2025 08:16:12 COVID-19, mRNA, LNP-S, PF, 30 mcg/0.3 mL dose 1 completed Not Available [facility] 10/15/2025 08:16:12 COVID-19, mRNA, LNP-S, PF, 30 mcg/0.3 mL dose 2 completed Not Available [facility] 10/15/2025 08:16:12 zoster recombinant 2 completed Not Available [facility] 10/15/2025 08:16:12 Tdap 2 completed Not Available [facility] 10/15/2025 08:16:12 Influenza, high-dose, quadrivalent, PF 2 completed Not Available [facility] 10/15/2025 08:16:12 COVID-19, mRNA, LNP-S, bivalent, PF, 30 mcg/0.3 mL dose 2 completed Not Available [facility] 10/15/2025 08:16:12 zoster recombinant 2 completed Not Available [facility] 10/15/2025 08:16:12 COVID-19, mRNA, LNP-S, PF, 50 mcg/0.5 mL 3 completed Not Available [facility] 10/15/2025 08:16:12 Influenza, high-dose, quadrivalent, PF 3 completed Not Available [facility] 10/15/2025 08:16:12 COVID-19, mRNA, LNP-S, PF, 50 mcg/0.5 mL 4 completed Not Available [facility] 10/15/2025 08:16:12 COVID-19, mRNA, LNP-S, PF, 50 mcg/0.5 mL 4 completed Not Available [facility] 10/15/2025 08:16:12 Influenza, high-dose, quadrivalent, PF 1 completed EPHRAIM pretty, [facility] 04/16/2025 12:48:19 Pneumococcal conjugate PCV 13 6 completed EPHRAIM VIDAL null, [facility] 04/16/2025 12:48:20 Influenza, high-dose, trivalent, PF 9 completed EPHRAIM VIDAL null, [facility] 04/16/2025 12:48:20 Influenza, high-dose, trivalent, PF 6 completed EPHRAIM VIDAL null, [facility] 04/16/2025 12:48:20 Influenza, high-dose, trivalent, PF 7 completed EPHRAIM VIDAL null, [facility] 04/16/2025 12:48:20 Influenza, high-dose, trivalent, PF 8 completed EPHRAIM VIDAL null, [facility] 04/16/2025 12:48:20 COVID-19, mRNA, LNP-S, PF, 50 mcg/0.5 mL 5 completed Not Available [facility] 10/15/2025 08:16:12 Past Encounters Encounter ID Performer Location Encounter Start Date Encounter Closed Date Diagnosis/Indication Diagnosis SNOMED-CT Code Diagnosis ICD10 Code Diagnosis IMO Codes Diagnosis Note [id number] Jaxon Geiger MD [facility] ([facility]) [address] [place] [address] 08/20/2025 08:00:51 09/16/2025 07:50:54 Vascular dementia with behavioral disturbance [id number] 18097 F01.518 Health Concerns Section Related Observation LastModified by Organization Detai ls LastModified Time None Recorded Concern Status LastModified by Organization Details LastModified Time None Recorded Payers Encounter Date Sequence Insurance Name Policy Number Policy Ortiz Covered Member ID Ortiz Member ID Guarantor Name 08/20/2025 1 [place]/A DVANTAGE - PPO) [id number] Dong Jackson [id number] Dong Jackson Notes Date Note Type Note Provider Name and Address Organization Details Recorded Time 08/20/2025 text/html Hypertension IM/FMReported by PatientHPIFor quality, patient reportshere for check-up. For severity, patient reportsmild. For onset/timing, patient reportsgradual onset. For alleviating factors, patient reportsmedication. For associated symptoms, patient reportsno shortness of breathandno palpitations. DementiaReported by Patientunchanged and without sign of progression since last visit Patient seen today by Dr. Geiger at [facility] Jaxon Geiger MD [address] [place] [address], [id number], [facility], Doroteo 09/13/2025 14:02:39
--- OUTSIDE RECORDS SUMMARY | 2025-11-01 15:50 | XMS_ITS | Continuity of Care Document ---
Author Organization [facility] Address [address] [place] [address] Care Team Providers Care Freight Brake Operator Name Role Phone Juanjo ROMAN, Dr. Coates Attending Physician Medications Medication Frequency Instructions Diagnosis Start Date End Date Status Last Administered albuterol sulfate 2.5 mg /3 mL (0.083 %) solution for nebulization Every 6 Hours - PRN 1, inhalation, Every 6 Hours - PRN, Clinical indication for wheezing 025 Active 10/28/2025 08:27 PM aspirin 81 mg tablet,chewable Once A Day 1 tab, oral, Once A Day Active 10/31/2025 06:27 AM Daily-Kylah (with folic acid) (multivitamin with folic acid) 400 mcg tablet Once A Day 1 tab, oral, Once A Day, TI for MVI 025 Active 10/31/2025 06:27 AM donepezil 10 mg tablet Once A Day 1 tab, oral, Once A Day 025 Active 10/31/2025 06:27 AM Dulcolax (bisacodyl) (bisacodyl) 10 mg suppository Once A Day - PRN 1 suppository, rectal, Once A Day - PRN, Give rectally if can't take p/o, if no results from [facility] 025 Active Dulcolax (bisacodyl) (bisacodyl) 5 mg tablet,delayed release (DR/EC) Once A Day - PRN 2 tabs/10mg, oral, Once A Day - PRN, Give if no results from [facility] 025 Active Fleet Enema (sodium phosphates) 19-7 gram/118 mL enema Once A Day - PRN 1 application, rectal, Once A Day - PRN, Give fleets if no results from [facility] and Dulcolax Active fluoxetine 20 mg capsule Once A Day 1, oral, Once A Day 025 Active 10/31/2025 06:27 AM lisinopril 20 mg tablet Once A Day 1 tab, oral, Once A Day 025 Active 10/31/2025 06:27 AM melatonin 3 mg tablet At Bedtime 1 tab, oral, At Bedtime 025 Active 10/31/2025 08:01 PM memantine 10 mg tablet Twice A Day 1 tab, oral, Twice A Day 025 Active 10/31/2025 08:01 PM Milk of Magnesia (magnesium hydroxide) 400 mg/5 mL suspension Every 72 Hours - PRN 30 ml, oral, Every 72 Hours - PRN, if no BM in 3 days DO NOT GIVE TO RENAL PATIENTS--GO TO DULCOLAX ORDERS 025 Active pravastatin 40 mg tablet Once A Day 1 tab, oral, Once A Day 025 Active 10/31/2025 06:27 AM trazodone 50 mg tablet At Bedtime 11/08 tab, oral, At Bedtime 025 Active 10/31/2025 08:01 PM Tylenol (acetaminophen) 325 mg tablet Every 6 Hours - PRN 2 tabs/650mg, oral, Every 6 Hours - PRN, as needed for PRN pain/increased temp May give rectally if necessary 025 Active 06/25/2025 06:34 PM lorazepam 0.5 mg tablet Once A Day - PRN 1, oral, Once A Day - PRN, Clinical indication: Anxiety x 30 days prn 025 2024 Not Active Problems Code Type Problem ICD Code Effective Date Status ICD-10 Alzheimer's disease, unspecified G30.9 02/2025 Active ICD-10 Vascular dementia, m oderate, with mood disturbance F01.B3 09/18/2025 Active ICD-10 Unspecified mood [affective] disorder F39 01/16/2025 Active ICD-10 Vascular dementia, moderate, with anxiety F01.B 4 09/18/2025 Active ICD-10 Anxiety disorder, unspecified F41.9 2024 Active ICD-10 Vascular dementia, m oderate, with other behavioral disturbance F01.B18 09/18/2025 Active ICD-10 Dysphagia, oropharyngeal phase R13.12 12/17 Active ICD-10 Chronic obstructive pulmonary disease, unspecified J44.9 02/06/2025 Active ICD-10 Essential (primary) hypertension I10 10/2025 Active ICD-10 Hyperlipidemia, unspecified E78.5 02/07/20 25 Active ICD-10 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 Z79.82 0 12/11/2024 Active ICD-10 Insomnia, unspecified G47.00 01/16/2025 Act letha ICD-10 Do not resuscitate Z66 12/11/2024 Active Current Allergies and Intolerances Category Substance Type Reaction Severity Begin Date Status Drug allergy cephalexin Allergy 12/10/2024 Activ e Vital Signs Height: 67.0 in Date / Time Temperature Pulse (per minute) Respirations (per minute) Systolic BP (mmHg) Diastolic BP (mmHg) O2 Saturation (%) Weight BMI 2024 07:59 PM 96.0 2024 07:06 AM 97.9 F 74 16 114 75 95.0 2024 06:11 PM 96.0 2024 10:09 AM 98.1 F 59 13 114 41 2024 10:00 AM 92.0 2024 06:33 PM 95.0 2024 08:22 AM 97.8 F 75 20 166 84 95.0 2024 08:27 PM 96.0 2024 08:50 AM 96.0 2024 08:00 AM 97.4 F 74 20 114 58 2024 11:36 PM 95.0 2024 09:51 AM 97.5 F 78 20 155 93 93.0 2024 09:08 AM 97.8 F 79 20 151 93 2024 09:36 AM 97.8 F 88 18 122 80 2024 07:07 AM 97.4 F 63 20 129 64 2024 07:13 AM 97.6 F 75 19 143 76 2024 07:07 AM 98.5 F 64 16 149 75 2024 11:36 AM 173.0 lbs 27.0 9 2024 01:35 PM 175.4 lbs 27.4 7 2024 11:13 AM 178.4 lbs 27.9 4 Advance Directives Directive Note Do Not Resuscitate (DNR) Insurance Providers Payer Policy type Group Name Group number Policy ID Address Phone Medicare Part A Medicare Part A [id number] Phone: Fax: Medicare Adv. MAO PDPM - BCBS Like Medicare Part A [id number] [address] [place] [address] Phone: Fax: Outlier - Vaccines - BCBS Like Medicare Part B [id number] [address] [place] [address] Phone: Fax: Outlier - % of Charges - BCBS Commercial Insurance [id number] [address] [place] [address] Phone: Fax: Medicaid [place] Medicaid (State) [id number] Ph one: Fax: Patient Liability Private Phone: Fax: Private Private Phone: Fax: Private Interest Private Phone: Fax: Immunizations Vaccine Digital Advisor Date Status Dose Series Complete COVID-19 Vaccine 08/22/2025 Completed Unknown Ye s COVID-19 Vaccine Moderna 08/23/2024 Completed Unknown COVID-19 Vaccine Moderna 02/21/2024 Completed Unknown COVID-19 Vaccine Moderna 08/15/2023 Completed Unknown COVID-19 Vaccine 07/28/2022 Completed Booster Bivalent COVID-19 Vaccine 03/31/2022 Completed 4 COVID-19 Vaccine [employer] 07/31/2021 Completed 3 COVID-19 Vaccine 07/31/2021 Completed COVID-19 Vaccine Pfizer-BioNTech 01/02/2021 Completed 2 COVID-19 Vaccine Pfizer-BioNTech 12/05/2020 Completed 1 COVID-19 Vaccine 12/10/2024 Refused Influenza Vaccine Alfuria 08/20/2025 Completed Influenza Vaccine 08/14/2024 Completed Pneumococcal Vaccine 11/15/2024 Completed RSV Vaccine 11/29/2024 Completed Procedures Not available for this record Results Not available for this record Goals Goal Date Will have a BM at least ever y 3 days for 120 days since update/last review AND/OR will not experience any complications r/t to colostomy for 120 days from update/ last review AND/OR Will not experience any GI complications for 120 days since update/last review AND/OR Will remain clean, dry between incontinent episodes thru 120days from update/last review 12/18/2025 Patient will have no falls 12/18/2025 Will participate in at least one group activity of preference weekly through next assessment 12/18/2025 ADL approaches will meet the resident?s needs to enhance ability, maintain abilities, or provide quality. 12/18/2025 Resident's skin will remain intact. 12/08 Advanced directives will be honored as outlined by patient/family on daily basis thru 120days from update/last review 12/18/2025 to maintain and improve lowe r extremity strength and dynamic gait to decrease falls . 3x week for 12 weeks. 12/18/2025 oDng will maintain or improve nutrition al status through next review 12/18/2025 Dong will maintain his BIMS score of 6 or higher over the next quarter. 12/18/2025 Adverse drug reactions will be identified with interventions initiated for 120 days from update/last review 12/18/2025 Encounters Admission Date Discharge Date Description MRN Visit Count 12/11/2024 11:30 LTPAC Admission [id number]
--- OUTSIDE RECORDS SUMMARY | 2025-11-01 15:50 | XMS_ITS | Patient Health Record ---
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 Name Role Phone [facility], [facility] Primary Care Provider Richard Schaefer Unavailable Allergies Allergen (clinical drug ingredient) Drug/Non Drug Allergy documented on EMR Reaction Allergy Type Onset Date Status Information temporarily unavailable Cephalexin Unknown Drug Allergy Active Reason For Referral No Information Medications Medication SIG (Take, Route, Frequency, Duration) Notes Start Date End Date Status traZODone HCl 50 MG Tablet 1 tablet at b edtime as needed Orally Once a day Active OLANZapine 5 MG Tablet 1 tablet Orally O nce a day Active Fluticasone-Salmeterol 45-21 MCG/ACT Aerosol 2 puffs Inhalation Twice a day Active Memantine HCl 10 MG Tablet 1 tablet Oral ly Once a day Active Aspirin 81 81 MG Tablet Chewable 1 tablet Orally Once a day Active Multivitamin - Tablet 1 tablet Orally On ce a day Active Albuterol Sulfate 108 (90 Base) MCG/ACT Aerosol Powder Breath Activated 1 puff as needed Inhalation every 4 hrs Active Lisinopril 20 MG Tablet 1 tablet Orally Once a day Active Sertraline HCl 25 MG Tablet 1 tablet Ora lly Once a day Active Donepezil HCl 10 MG Tablet 1 tablet at b edtime Orally Once a day Active Pravastatin Sodium 40 MG Tablet 1 tablet Orally Once a day Active Divalproex Sodium 250 MG Tablet Delayed Release 1 tablet Orally Once a day Active Melatonin 3 MG Tablet 1 tablet at bedtim e as needed Orally Once a day Active Problems Problem Type SNOMED Code ICD Code Onset Dates Problem Status W/U Status Risk Notes Problem Information temporarily unavailable Alzheimer's disease, unspecified (G30.9) Active confirmed Problem Information temporarily unavailable Essential (primary) hypertension (I10) Active confirmed Problem Information temporarily unavailable Chronic obstructive pulmonary disease, unspecified COPD type (J44.9) Active confirmed Problem Information temporarily unavailable Hyperlipidemia, unspecified hyperlipidemia type (E78.5) Active confirmed Problem Information temporarily unavailable 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, unspecified whether um[place] tribe or transplanted heart (I25.10) Active confirmed Problem Information temporarily unavailable Dementia in other diseases classified elsewhere, unspecified severity, without behavioral disturbance, psychotic disturbance, mood disturbance, and anxiety (F02.80) Active confirmed Encounters Encounter Location Date Provider Diagnosis [facility] [address] [place] [address] 12/11/2024 Richard Lambert Chronic obstructive pulmonary disease, unspecified COPD type J44.9 ; Essential (primary) hypertension I10 and Dementia in other diseases classified elsewhere, unspecified severity, without behavioral disturbance, psychotic disturbance, mood disturbance, and anxiety F02.80 [facility] [address] [place] [address] 12/07/2024 Richard Lambert Chronic obstructive pulmonary disease, unspecified COPD type J44.9 ; Essential (primary) hypertension I10 and Dementia in other diseases classified elsewhere, unspecified severity, without behavioral disturbance, psychotic disturbance, mood disturbance, and anxiety F02.[address] [address] 05/15/2025 Richard Lambert Assessments Encounter Date Diagnosis (ICD Code) Assessment Notes Treatment Notes Treatment Clinical Notes Section Notes 12/11/2024 Chronic obstructive pulmonary disease, unspecified COPD type (ICD-10 - J44.9) 12/07/2024 Chronic obstructive pulmonary disease, unspecified COPD type (ICD-10 - J44.9) 12/07/2024 Essential (primary) hypertension (ICD-10 - I10) 12/11/2024 Essential (primary) hypertension (ICD-10 - I10) 12/11/2024 Dementia in other diseases classified elsewhere, unspecified severity, without behavioral disturbance, psychotic disturbance, mood disturbance, and anxiety (ICD-10 - F02.80) 12/07/2024 Dementia in other diseases classified elsewhere, unspecified severity, without behavioral disturbance, psychotic disturbance, mood disturbance, and anxiety (ICD-10 - F02.80) 12/07/2024 Other Medications reviewed, orders signed and documented with nursing staff. Vitals taken and recorded at [facility]. 12/11/2024 Other Medications reviewed, orders signed and documented with nursing staff. Vitals taken and recorded at [facility]. Pt approved for discharge. Plan Of Treatment No Information Insurance Providers Payer Name Payer Address Payer Phone Subscriber Number Group Number Insured Name Patient Relationship to Insured Coverage Start Date Coverage End Date [facility] [address] [address] [place] [address] [id number] JAMIL MOYER Self - patient is the insured
--- OUTSIDE RECORDS SUMMARY | 2025-11-01 15:50 | XMS_ITS | Continuity of Care Document ---
Author Organization 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 5 16:16:21 Esophage al dysphagi a 93552609 Active 2023 [facility] 16:16:16 Chronic obstruct letha pulmonar y disease 34915601 Active 2023 DILMA pretty [facility] 5 16:16:06 Hallucin ations 6195817 Completed 202301/02/2025 [facility] 16:16:30 Vascular dementia with behavior al disturba nce 99971334585 9104 Active 2024 [facility] 12:52:08 Anxiety disorder 392796909 Active 2024 EPHRAIM VIDAL [facility] 5 12:51:47 Problem Notes None recorded. Medical Equipment None Reported. Allergies Allergen ID Allergen Name Allergen Category Reaction Reaction Severity Criticality Documentation Date Start Date Code Code System Note Provider Name and Address Organization Details Recorded Time 2253 Augmentin medicatio n Not available Not available Not available 03/03/2023 91154 2 RxNorm JOSE DAVE [facility] 3 12:24:35 52720 cephalexi n medicatio n Not available Not available Not available 04/16/2025 2231 RxNorm EPHRAIM pretty [facility] 5 12:48:36 Medications Name Sig [...] Updated DateTime 5 167.64 cm 28.2 kg/m2 52017.6 6 g 95 % 71 /min 20 /min 98.7 [degF] 102/68 mm[Hg] DILMA CARMONA [facility] 5 12:47:30 Date Recorded Body height Body mass index (BMI) Body weight Oxygen saturation Heart rate Respiratory rate Body temperature Systolic And Diastolic Provider Name and Address Organization Details Last Updated DateTime 5 167.64 cm 27.9 kg/m2 51266.4 8 g 94 % 70 /min 16 /min 98 [degF] 128/60 mm[Hg] EPHRAIM VIDAL [facility] 5 10:17:31 Social History Question Answer Notes LastModified by Organizat ion Details LastModified Time Tobacco Smoking Status Never Smoker VICKI pretty [facility] 04/22/2023 13:48:16 What Was The Date Of Your Most Recent Tobacco Screening? 04/16/2025 [email or web address] Information not available 04/16/2025 Sex: Unknown Functional Status Question Answer Note LastModified by Organization D etails LastModified Time Do you or have you ever used any other forms of tobacco or nicotine? No [email or web address] Information not available 04/16/2025 What is your level of alcohol consumption? None [email or web address] Information not available 04/22/2023 Do you or have you ever used any nicotine-free cigarettes, vape, or chewing tobacco? No [email or web address] Information not available 04/16/2025 Mental Status None recorded. Family History Nothing Reported. Medical History No medical history recorded. Immunizations Vaccine Type Date Status Note Provider Nam e and Address Organization Details Recorded Time Influenza, split virus, trivalent, preservative 2 completed Not Available [facility] 06/04/2023 02:43:47 Influenza, split virus, trivalent, preservative 1 completed Not Available [facility] 06/04/2023 02:43:47 pneumococcal polysaccharide PPV23 2 completed Not Available [facility] 06/04/2023 02:43:47 pneumococcal polysaccharide PPV23 7 completed EPHRAIM pretty [facility] 04/16/2025 12:48:19 Influenza, split virus, trivalent, preservative 4 completed Not Available [facility] 06/04/2023 02:43:47 Influenza, high-dose, trivalent, PF 5 completed Not Available [facility] 10/15/2025 08:16:12 COVID-19, mRNA, LNP-S, PF, 30 mcg/0.3 mL dose 1 completed Not Available [facility] 10/15/2025 08:16:12 COVID-19, mRNA, LNP-S, PF, 30 mcg/0.3 mL dose 1 completed Not Available [facility] 10/15/2025 08:16:12 COVID-19, mRNA, LNP-S, PF, 30 mcg/0.3 mL dose 1 completed Not Available [facility] 10/15/2025 08:16:12 COVID-19, mRNA, LNP-S, PF, 30 mcg/0.3 mL dose 2 completed Not Available [facility] 10/15/2025 08:16:12 zoster recombinant 2 completed Not Available [facility] 10/15/2025 08:16:12 Tdap 2 completed Not Available [facility] 10/15/2025 08:16:12 Influenza, high-dose, quadrivalent, PF 2 completed Not Available [facility] 10/15/2025 08:16:12 COVID-19, mRNA, LNP-S, bivalent, PF, 30 mcg/0.3 mL dose 2 completed Not Available [facility] 10/15/2025 08:16:12 zoster recombinant 2 completed Not Available [facility] 10/15/2025 08:16:12 COVID-19, mRNA, LNP-S, PF, 50 mcg/0.5 mL 3 completed Not Available [facility] 10/15/2025 08:16:12 Influenza, high-dose, quadrivalent, PF 3 completed Not Available [facility] 10/15/2025 08:16:12 COVID-19, mRNA, LNP-S, PF, 50 mcg/0.5 mL 4 completed Not Available [facility] 10/15/2025 08:16:12 COVID-19, mRNA, LNP-S, PF, 50 mcg/0.5 mL 4 completed Not Available [facility] 10/15/2025 08:16:12 Influenza, high-dose, quadrivalent, PF 1 completed EPHRAIM pretty, [facility] 04/16/2025 12:48:19 Pneumococcal conjugate PCV 13 6 completed EPHRAIM pretty, [facility] 04/16/2025 12:48:20 Influenza, high-dose, trivalent, PF 9 completed EPHRAIM VIDAL null, [facility] 04/16/2025 12:48:20 Influenza, high-dose, trivalent, PF 6 completed EPHRAIM pretty, [facility] 04/16/2025 12:48:20 Influenza, high-dose, trivalent, PF 7 completed EPHRAIM pretty, [facility] 04/16/2025 12:48:20 Influenza, high-dose, trivalent, PF 8 completed [facility]ID[facility] 04/16/2025 12:48:20 COVID-19, mRNA, LNP-S, PF, 50 mcg/0.5 mL 5 completed Not Available [facility] 10/15/2025 08:16:12 Past Encounters Encounter ID Performer Location Encounter Start Date Encounter Closed Date Diagnosis/Indication Diagnosis SNOMED-CT Code Diagnosis ICD10 Code Diagnosis IMO Codes Diagnosis Note [id number] Jaxon Good MD [facility] ([facility]) [address] [place] [address] 08/20/2025 08:00:51 09/16/2025 07:50:54 Vascular dementia with behavioral disturbance [id number] 03081 F01.168 [id number] BERNADETTE GOOD PA-C [facility] ([facility]) [address] [place] [address] 09/18/2025 12:41:20 10/15/2025 17:19:29 Vascular dementia 429300951 F01.B4 5496087920 ativan .5mg1 po qd prn x 30 days prn monitor usage and if consistant will continue if he is not using then we will dcHe is already on aracept and namenda and SSRI and trazadone. Health Concerns Section Related Observation LastModified by Organization Detai ls LastModified Time None Recorded Concern Status LastModified by Organization Details LastModified Time None Recorded Payers Encounter Date Sequence Insurance Name Policy Number Policy Ortiz Covered Member ID Ortiz Member ID Guarantor Name 09/18/2025 1 [id number]/A DVANTAGE - PPO) [id number] Dong Jackson [id number] Dong Jackson Notes Date Note Type Note Provider Name and Address Organization Details Recorded Time 09/18/2025 text/html DementiaReported by PatientHPIFor associated symptoms, patient reportsdepression. For quality, patient reportsshort term memory loss,disorientation to place, anddisorientation to time. For severity, patient reportsmoderate. For duration, patient reports6 months. Pt famiy wants him reevaluated for increase in anxiety. Staff states he is good with them but when he talks to his he will get weepy and want to go home. She has not been able to come visit as much due to her own health issues. Jaxon Good MD [address] [place], [address], [facility] 10/15/2025 12:50:01 10/15/2025 text/html Hypertension IM/FMReported by PatientHPIFor quality, patient reportshere for check-up. For severity, patient reportsmild. For onset/timing, patient reportsgradual onset. For alleviating factors, patient reportsmedication. For associated symptoms, patient reportsno shortness of breathandno palpitations. DementiaReported by Patientunchanged and without sign of progression since last visit per staff he is pleasantly confused Patient seen today by Dr. Good at [facility] Jaxon Good MD [address] [place] [address], [phone], [facility] 10/15/2025 16:27:10
--- OUTSIDE RECORDS SUMMARY | 2025-11-01 15:50 | XMS_ITS | Encounter Summary ---
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
--- OUTSIDE RECORDS SUMMARY | 2025-11-01 15:50 | XMS_ITS | Continuity of Care Document ---
Author Organization [facility] ([facility]) Address [address] [place] [id number] Problems Condition ICD9 code ICD10 code SNOMED code Start Date End Date S tatus Alzheimer's disease, unspecified G30.9 12/11/2024 Active Do not resuscitate Z66 12/11/2024 Ac tive Muscle weakness (generalized) M62.81 12/12/2024 Active Difficulty in walking, not elsewhere classified R26.2 12/12/2024 Active Dementia in other diseases classified elsewhere without behavioral disturbance F02.80 12/11/2024 Ac tive Dysphagia, oropharyngeal phase R13.12 12/17/2024 Active Essential (primary) hypertension I10 12/19/2024 Active Anxiety disorder, unspecified F41.9 12/19/2024 Active Unspecified mood [affective] disorder F39 01/16/2025 Acti ve Insomnia, unspecified G47.00 01/16/2025 Active Dementia in other diseases classified elsewhere, unspecified severity, with mood disturbance F02.83 01/16/2025 Active Vascular dementia, unspecified severity, with mood disturbance F01.53 01/16/2025 Act letha Dementia in other diseases classified elsewhere, unspecified severity, with anxiety F02.84 12/19/2024 Ac tive Vascular dementia, unspecified severity, with anxiety F01.54 01/09/2025 Active Vascular dementia, unspecified severity, with other behavioral disturbance F01.518 01/09/2025 Active Chronic obstructive pulmonary disease, unspecified J44.9 02/06/2025 Active Hyperlipidemia, unspecified E78.5 02/06/2025 Active prison (current) use of aspirin Z79.82 12/11/2024 Active Vascular dementia, moderate, with mood disturbance F01.B3 09/18/2025 Active Vascular dementia, moderate, with anxiety F01.B4 09/18/2025 Ac tive Vascular dementia, moderate, with other behavioral disturbance F01.B18 09/18/2025 Ac tive Results Test Result Date/Time Value / Unit Interp. Refere nce Range COVID-19 Test Viral Antigen null flavor [null] 01/07/2025 06:00 PM See note NEG COVID-19 Test Viral Antigen COVID-19 Test Viral Antigen null flavor [null] 12/31/2024 06:00 PM See note NEG COVID-19 Test Viral Antigen Tuberculosis reaction wheal[ 88318-7] Tuberculosis reaction wheal [78282-8] 12/19/2024 04:24 PM 0 mm NEG Tuberculosis reaction wheal[ 61456-0] Tuberculosis reaction wheal [43612-0] 12/19/2024 04:24 PM See note TB test Tuberculosis reaction wheal[ 54987-6] Tuberculosis reaction wheal [01194-5] 12/11/2024 06:00 PM 0 mm NEG Allergies, adverse reactions, alerts Substance Reaction Date Status Type cephalexin 12/10/2024 Non Drug Immunizations Vaccine Route Date Status Influenza Vaccine Unassigned Route of Administration 1 Completed COVID-19 Vaccine Unassigned Route of Administration Completed COVID-19 Vaccine Unassigned Route of Administration Refused Pneumococcal Vaccine Unassigned Route of Administratio n 11/15/2024 Completed RSV Vaccine Unassigned Route of Administration 2024 Completed COVID-19 Vaccine Unassigned Route of Administration Completed COVID-19 Vaccine Unassigned Route of Administration Completed COVID-19 Vaccine Unassigned Route of Administration Completed COVID-19 Vaccine Unassigned Route of Administration Completed COVID-19 Vaccine Unassigned Route of Administration Completed COVID-19 Vaccine Unassigned Route of Administration Completed COVID-19 Vaccine Unassigned Route of Administration Completed Influenza Vaccine Unassigned Route of Administration 1 Completed COVID-19 Vaccine Unassigned Route of Administration Completed Medications Medication Instructions Route Dosage Frequency Start Date Stop Date Indications Status albuterol sulfate 90 mcg/actuation HFA aerosol inhaler (albuterol sulfate) 1 puff, inhalation, Every 4 Hours - PRN, Administer 1 puff Q 4hrs PRN for dyspnea inhalation 1.0 4.0 h 01/09 Active aspirin 81 mg tablet,chewab le (aspirin) 1 tab, oral, Once A Day oral 1.0 1.0 d 2024 Active Daily-Kylah (with folic acid) (multivitamin with folic acid) 400 mcg tablet (Daily-Kylah (with folic acid) (multivitamin with folic acid)) 1 tab, oral, Once A Day, TI for MVI oral 1.0 1.0 d 2024 Active divalproex 125 mg capsule, delayed rel sprinkle (divalproex) 2 caps (250mg), oral, Three Times A Day oral 1.0 8.0 h 01/09 Active donepezil 10 mg tablet (donepezil) 1 tab, oral, Once A Day oral 1.0 1.0 d 2024 Active Dulcolax (bisacodyl) (bisacodyl) 10 mg suppository (Dulcolax (bisacodyl) (bisacodyl)) 1 suppository, rectal, Once A Day - PRN, Give rectally if can't take p/o, if no results from MOM rectal 1.0 1.0 d 2024 Active Dulcolax (bisacodyl) (bisacodyl) 5 mg tablet,delaye d release (DR/EC) (Dulcolax (bisacodyl) (bisacodyl)) 2 tabs/10mg, oral, Once A Day - PRN, Give if no results from MOM oral 1.0 1.0 d 2024 Active Fleet Enema (sodium phosphates) 19-7 gram/118 mL enema (Fleet Enema (sodium phosphates)) 1 application, rectal, Once A Day - PRN, Give fleets if no results from MOM and Dulcolax rectal 1.0 1.0 d 2024 Active fluticasone propion-salme terol 250-50 mcg/dose blister with device (fluticasone propion-salme terol) 1 inhalation, inhalation, Twice A Day, rinse mouth with water and spit after use. inhalation 1.0 12.0 h 01/09 Active guaifenesin 100 mg/5 mL liquid (guaifenesin) 500 mg / 25 mL, oral, Once A Day oral 1.0 1.0 d 01/09 Active lisinopril 20 mg tablet (lisinopril) 1 tab, oral, Once A Day oral 1.0 1.0 d 2024 Active melatonin 3 mg tablet (melatonin) 1 tab, oral, At Bedtime oral 1.0 2024 Active memantine 10 mg tablet (memantine) 1 tab, oral, Twice A Day oral 1.0 12.0 h 2024 Active Milk of Magnesia (magnesium hydroxide) 400 mg/5 mL suspension (Milk of Magnesia (magnesium hydroxide)) 30 ml, oral, Every 72 Hours - PRN, if no BM in 3 daysDO NOT GIVE TO RENAL PATIENTS--GO TO DULCOLAX ORDERS oral 1.0 72.0 h 2024 Active olanzapine-fl uoxetine 12-25 mg capsule (olanzapine-f luoxetine) 1 cap, oral, At Bedtime oral 1.0 01/09 Active pravastatin 40 mg tablet (pravastatin) 1 tab, oral, Once A Day oral 1.0 1.0 d 2024 Active trazodone 50 mg tablet (trazodone) 1 tab, oral, At Bedtime oral 1.0 08/28 Active Tylenol (acetaminophe n) 325 mg tablet (Tylenol (acetaminophe n)) 2 tabs/650mg, oral, Every 6 Hours - PRN, as needed for PRN pain/increase d tempMay give rectally if necessary oral 1.0 6.0 h 2024 Active Airsupra (albuterol-bu desonide) 90-80 mcg/actuation HFA aerosol inhaler (Airsupra (albuterol-bu desonide)) 1 puff, inhalation, Once A Day - PRN, clinical indication: dyspnea inhalation 1.0 1.0 d 12/11 Active Tubersol (tuberculin ppd) 5 tub. unit /0.1 mL solution (Tubersol (tuberculin ppd)) 0.1ml, intradermal, Once - One Time, Administer the morning after admission intradermal 1.0 12/11 Active Tubersol (tuberculin ppd) 5 tub. unit /0.1 mL solution (Tubersol (tuberculin ppd)) 0.1ml, intradermal, Once - One Time, Administer on the day shift intradermal 1.0 12/19 Active albuterol sulfate 2.5 mg /3 mL (0.083 %) solution for nebulization (albuterol sulfate) 1, inhalation, Twice A Day inhalation 1.0 12.0 h 03/01 Active budesonide 1 mg/2 mL suspension for nebulization (budesonide) 1 inh, inhalation, Twice A Day inhalation 1.0 12.0 h 01/30 Active divalproex 125 mg capsule, delayed rel sprinkle (divalproex) 2 caps (250mg), oral, Twice A Day oral 1.0 12.0 h 02/06 Active olanzapine-fl uoxetine 6-25 mg capsule (olanzapine-f luoxetine) 1, oral, At Bedtime oral 1.0 02/06 Active divalproex 125 mg capsule, delayed rel sprinkle (divalproex) 1 cap, oral, Twice A Day oral 1.0 12.0 h 02/13 Active fluoxetine 20 mg capsule (fluoxetine) 1, oral, Once A Day oral 1.0 1.0 d 2024 Active divalproex 125 mg capsule, delayed rel sprinkle (divalproex) 1 caps (250mg), oral, Twice A Day oral 1.0 12.0 h 02/06 Active albuterol sulfate 2.5 mg /3 mL (0.083 %) solution for nebulization (albuterol sulfate) 1, inhalation, Every 6 Hours - PRN, Clinical indication for wheezing inhalation 1.0 6.0 h 2024 Active albuterol sulfate 2.5 mg /3 mL (0.083 %) solution for nebulization (albuterol sulfate) 1, inhalation, Four Times A Day inhalation 1.0 6.0 h 06/21 Active azithromycin 500 mg tablet (azithromycin ) 2, oral, Once - One Time oral 1.0 06/18 Active azithromycin 500 mg tablet (azithromycin ) 1, oral, Once A Day oral 1.0 1.0 d 06/18 Active azithromycin 500 mg tablet (azithromycin ) 1, oral, Once A Day oral 1.0 1.0 d 06/18 Active azithromycin 250 mg tablet (azithromycin ) 2, oral, Once A Day oral 1.0 1.0 d 06/19 Active azithromycin 250 mg tablet (azithromycin ) 1, oral, Once A Day oral 1.0 1.0 d 06/22 Active prednisone 20 mg tablet (prednisone) 2, oral, Once A Day oral 1.0 1.0 d 06/18 Active prednisone 20 mg tablet (prednisone) 2, oral, Once A Day oral 1.0 1.0 d 06/23 Active Afluria 5044-8631 (3yr up)(PF) (flu vac [id number] 36mos up(pf)) 45 mcg (15 mcg x 3)/0.5 m syringe (Afluria (3yr up)(PF) (flu vac [id number] 36mos up(pf))) 0.5ml, intramuscular , Once - One Time intramuscula r 1.0 08/20 Active Afluria (3yr up)(PF) (flu vac [id number] 36mos up(pf)) 45 mcg (15 mcg x 3)/0.5 m syringe (Afluria (3yr up)(PF) (flu vac [id number] 36mos up(pf))) 0.5ml, intramuscular , Once - One Time intramuscula r 1.0 08/20 Active trazodone 50 mg tablet (trazodone) 1/2 tab, oral, At Bedtime oral 1.0 2024 Active lorazepam 0.5 mg tablet (lorazepam) 1, oral, Once A Day - PRN, Clinical indication: Anxiety x 30 days prn oral 1.0 1.0 d 10/19 Active Vital Signs Date Vital Result Comment 12/11/2024 04:27 PM Temperature (8310-5) 97.1 [degF] Oxygen Saturation (90915-0) 92 % Respiratory Rate (9279-1) 18 /min Heart Rate (8867-4) 66 /min Blood Pressure Systolic (8480-6) 127 mm[Hg] Blood Pressure Diastolic (8462-4) 65 mm[Hg] 12/11/2024 03:31 PM Body Height (8302-2) 67 [in_us] 12/11/2024 03:10 PM Body Weight (44412-9) 155.2 [lb_av ] Body Mass Index (19922-5) 24.31 kg/m2 12/12/2024 04:24 PM Oxygen Saturation (48360-0) 94 % Body Weight (96853-8) 155.8 [lb_av] Body Mass Index (95420-9) 24.4 kg/m2 12/12/2024 04:25 PM Temperature (8310-5) 97.6 [degF] Respiratory Rate (9279-1) 18 /min Heart Rate (8867-4) 86 /min Blood Pressure Systolic (8480-6) 121 mm[Hg] Blood Pressure Diastolic (8462-4) 74 mm[Hg] 12/11/2024 06:33 PM Temperature (8310-5) 97 [degF] Respiratory Rate (9279-1) 18 /min Heart Rate (8867-4) 88 /min Blood Pressure Systolic (8480-6) 110 mm[Hg] Blood Pressure Diastolic (8462-4) 62 mm[Hg] 12/11/2024 06:32 PM Oxygen Saturation (27617-1) 93 % 12/13/2024 06:02 PM Oxygen Saturation (09494-6) 93 % 12/13/2024 02:55 PM Body Weight (50666-7) 157 [lb_av] Body Mass Index (87772-9) 24.59 kg/m2 12/13/2024 01:39 PM Temperature (8310-5) 97.6 [degF] Respiratory Rate (9279-1) 17 /min Heart Rate (8867-4) 84 /min Blood Pressure Systolic (8480-6) 121 mm[Hg] Blood Pressure Diastolic (8462-4) 67 mm[Hg] 12/13/2024 11:07 AM Oxygen Saturation (52104-1) 95 % 12/12/2024 07:03 PM Temperature (8310-5) 97.3 [degF] Oxygen Saturation (81372-5) 94 % Respiratory Rate (9279-1) 20 /min Heart Rate (8867-4) 81 /min Blood Pressure Systolic (8480-6) 128 mm[Hg] Blood Pressure Diastolic (8462-4) 77 mm[Hg] 12/14/2024 02:12 PM Temperature (8310-5) 98 [degF] Respiratory Rate (9279-1) 17 /min Heart Rate (8867-4) 82 /min Blood Pressure Systolic (8480-6) 131 mm[Hg] Blood Pressure Diastolic (8462-4) 78 mm[Hg] 12/14/2024 02:11 PM Oxygen Saturation (71618-6) 94 % 12/13/2024 07:49 PM Temperature (8310-5) 98 [degF] Respiratory Rate (9279-1) 18 /min Heart Rate (8867-4) 74 /min Blood Pressure Systolic (8480-6) 128 mm[Hg] Blood Pressure Diastolic (8462-4) 76 mm[Hg] 12/15/2024 08:29 AM Temperature (8310-5) 97.7 [degF] Respiratory Rate (9279-1) 20 /min Heart Rate (8867-4) 64 /min Blood Pressure Systolic (8480-6) 110 mm[Hg] Blood Pressure Diastolic (8462-4) 58 mm[Hg] 12/15/2024 08:28 AM Oxygen Saturation (86013-4) 91 % 12/14/2024 08:56 PM Oxygen Saturation (23186-5) 92 % Respiratory Rate (9279-1) 14 /min 12/14/2024 08:55 PM Temperature (8310-5) 98.6 [degF] Oxygen Saturation (42304-2) 92 % Heart Rate (8867-4) 73 /min Blood Pressure Systolic (8480-6) 119 mm[Hg] Blood Pressure Diastolic (8462-4) 67 mm[Hg] 12/15/2024 07:52 PM Temperature (8310-5) 98.6 [degF] Oxygen Saturation (30796-9) 93 % Respiratory Rate (9279-1) 15 /min Heart Rate (8867-4) 85 /min Blood Pressure Systolic (8480-6) 114 mm[Hg] Blood Pressure Diastolic (8462-4) 67 mm[Hg] 12/15/2024 07:44 PM Oxygen Saturation (90045-9) 93 % 12/16/2024 08:42 PM Temperature (8310-5) 98.6 [degF] Oxygen Saturation (25248-2) 92 % Respiratory Rate (9279-1) 16 /min Heart Rate (8867-4) 67 /min Blood Pressure Systolic (8480-6) 104 mm[Hg] Blood Pressure Diastolic (8462-4) 55 mm[Hg] 12/16/2024 02:55 PM Temperature (8310-5) 98 [degF] Oxygen Saturation (72107-0) 96 % Respiratory Rate (9279-1) 17 /min Heart Rate (8867-4) 70 /min Blood Pressure Systolic (8480-6) 118 mm[Hg] Blood Pressure Diastolic (8462-4) 78 mm[Hg] 12/16/2024 11:28 AM Oxygen Saturation (88839-7) 94 % 12/17/2024 09:06 AM Oxygen Saturation (71053-5) 95 % 12/17/2024 06:14 PM Oxygen Saturation (81708-4) 94 % 12/18/2024 06:15 PM Oxygen Saturation (57193-9) 94 % 12/18/2024 08:33 AM Oxygen Saturation (42976-2) 95 % 12/19/2024 06:14 PM Oxygen Saturation (12573-6) 93 % 12/19/2024 04:03 PM Body Weight (22549-5) 157.2 [lb_av ] Body Mass Index (70448-5) 24.62 kg/m2 12/19/2024 09:36 AM Oxygen Saturation (99816-8) 91 % 12/20/2024 07:13 PM Oxygen Saturation (73065-0) 93 % 12/20/2024 07:59 AM Oxygen Saturation (72049-4) 94 % 12/21/2024 08:56 AM Oxygen Saturation (99183-8) 93 % 12/21/2024 08:43 PM Oxygen Saturation (78091-7) 93 % 12/22/2024 10:37 AM Oxygen Saturation (84204-5) 92 % 12/23/2024 11:31 AM Oxygen Saturation (95902-3) 95 % 12/22/2024 11:22 PM Oxygen Saturation (89657-1) 94 % 12/24/2024 12:00 AM Oxygen Saturation (25725-2) 93 % 12/24/2024 06:25 PM Oxygen Saturation (50721-5) 95 % 12/24/2024 08:35 AM Oxygen Saturation (77463-3) 95 % 12/25/2024 08:36 AM Oxygen Saturation (83175-2) 93 % 12/26/2024 02:39 PM Temperature (8310-5) 98 [degF] Respiratory Rate (9279-1) 18 /min Heart Rate (8867-4) 68 /min Blood Pressure Systolic (8480-6) 121 mm[Hg] Blood Pressure Diastolic (8462-4) 75 mm[Hg] 12/26/2024 02:29 PM Oxygen Saturation (19743-1) 93 % 12/25/2024 06:14 PM Oxygen Saturation (43572-5) 94 % 12/27/2024 09:08 AM Oxygen Saturation (69105-0) 94 % 12/26/2024 06:24 PM Oxygen Saturation (13464-7) 93 % 12/26/2024 05:10 PM Body Weight (20934-0) 161 [lb_av] Body Mass Index (17833-0) 25.21 kg/m2 12/28/2024 11:25 AM Oxygen Saturation (93502-8) 92 % 12/27/2024 07:07 PM Oxygen Saturation (55472-6) 93 % 12/28/2024 11:52 PM Oxygen Saturation (42806-1) 95 % 12/29/2024 07:36 AM Oxygen Saturation (01410-3) 96 % 12/30/2024 07:58 AM Oxygen Saturation (96504-8) 92 % 12/29/2024 11:51 PM Oxygen Saturation (67870-6) 93 % 12/30/2024 11:06 PM Oxygen Saturation (10481-9) 93 % 12/31/2024 06:55 PM Oxygen Saturation (76834-7) 93 % 12/31/2024 09:24 AM Oxygen Saturation (98316-6) 95 % 01/01/2025 08:05 AM Oxygen Saturation (94306-0) 95 % 01/01/2025 07:40 PM Oxygen Saturation (00707-8) 93 % 01/02/2025 08:04 PM Oxygen Saturation (58832-1) 93 % 01/02/2025 09:12 AM Temperature (8310-5) 98 [degF] Oxygen Saturation (61404-4) 98 % Respiratory Rate (9279-1) 18 /min Heart Rate (8867-4) 80 /min Blood Pressure Systolic (8480-6) 126 mm[Hg] Blood Pressure Diastolic (8462-4) 85 mm[Hg] 01/02/2025 09:11 AM Oxygen Saturation (41126-0) 98 % 01/02/2025 09:04 AM Body Weight (57838-2) 158.4 [lb_av ] Body Mass Index (05733-5) 24.81 kg/m2 01/03/2025 08:57 AM Oxygen Saturation (52852-4) 96 % 01/03/2025 06:53 PM Oxygen Saturation (66512-1) 94 % 01/04/2025 09:20 PM Temperature (8310-5) 97.5 [degF] Oxygen Saturation (15270-1) 93 % Respiratory Rate (9279-1) 17 /min Heart Rate (8867-4) 73 /min Blood Pressure Systolic (8480-6) 102 mm[Hg] Blood Pressure Diastolic (8462-4) 57 mm[Hg] 01/04/2025 08:14 AM Oxygen Saturation (40664-1) 91 % 01/05/2025 10:07 AM Temperature (8310-5) 98.1 [degF] Oxygen Saturation (59835-4) 91 % Respiratory Rate (9279-1) 18 /min Heart Rate (8867-4) 74 /min Blood Pressure Systolic (8480-6) 135 mm[Hg] Blood Pressure Diastolic (8462-4) 81 mm[Hg] 01/05/2025 10:00 AM Body Weight (17639-0) 160 [lb_av] Body Mass Index (85709-6) 25.06 kg/m2 01/05/2025 08:39 AM Oxygen Saturation (40440-8) 94 % 01/06/2025 11:32 AM Temperature (8310-5) 97.6 [degF] Oxygen Saturation (50754-6) 99 % Respiratory Rate (9279-1) 18 /min Heart Rate (8867-4) 87 /min Blood Pressure Systolic (8480-6) 110 mm[Hg] Blood Pressure Diastolic (8462-4) 75 mm[Hg] 01/06/2025 12:47 AM Temperature (8310-5) 97.9 [degF] Oxygen Saturation (08204-4) 93 % Respiratory Rate (9279-1) 16 /min Heart Rate (8867-4) 67 /min Blood Pressure Systolic (8480-6) 130 mm[Hg] Blood Pressure Diastolic (8462-4) 77 mm[Hg] 01/05/2025 11:15 PM Oxygen Saturation (60328-9) 96 % 01/06/2025 07:22 PM Oxygen Saturation (25117-1) 98 % 01/06/2025 06:38 PM Temperature (8310-5) 97.8 [degF] Oxygen Saturation (72703-1) 98 % Respiratory Rate (9279-1) 16 /min Heart Rate (8867-4) 81 /min Blood Pressure Systolic (8480-6) 100 mm[Hg] Blood Pressure Diastolic (8462-4) 58 mm[Hg] 01/07/2025 07:59 PM Temperature (8310-5) 97.6 [degF] Respiratory Rate (9279-1) 21 /min Heart Rate (8867-4) 76 /min Blood Pressure Systolic (8480-6) 106 mm[Hg] Blood Pressure Diastolic (8462-4) 67 mm[Hg] 01/07/2025 07:58 PM Oxygen Saturation (24005-4) 92 % 01/07/2025 09:19 AM Oxygen Saturation (74848-7) 94 % 01/07/2025 09:16 AM Temperature (8310-5) 96.8 [degF] Oxygen Saturation (19226-6) 94 % Respiratory Rate (9279-1) 20 /min Heart Rate (8867-4) 78 /min Blood Pressure Systolic (8480-6) 110 mm[Hg] Blood Pressure Diastolic (8462-4) 65 mm[Hg] 01/08/2025 10:02 AM Oxygen Saturation (04184-3) 94 % 01/09/2025 09:51 AM Temperature (8310-5) 97.4 [degF] Oxygen Saturation (90796-7) 94 % Respiratory Rate (9279-1) 17 /min Heart Rate (8867-4) 70 /min Blood Pressure Systolic (8480-6) 117 mm[Hg] Blood Pressure Diastolic (8462-4) 83 mm[Hg] 01/08/2025 06:39 PM Temperature (8310-5) 97.6 [degF] Oxygen Saturation (65482-1) 95 % Respiratory Rate (9279-1) 19 /min Heart Rate (8867-4) 80 /min Blood Pressure Systolic (8480-6) 120 mm[Hg] Blood Pressure Diastolic (8462-4) 67 mm[Hg] 01/08/2025 04:20 PM Temperature (8310-5) 97.6 [degF] Respiratory Rate (9279-1) 17 /min Heart Rate (8867-4) 82 /min Blood Pressure Systolic (8480-6) 123 mm[Hg] Blood Pressure Diastolic (8462-4) 76 mm[Hg] 01/10/2025 12:50 PM Temperature (8310-5) 98 [degF] Respiratory Rate (9279-1) 17 /min Heart Rate (8867-4) 71 /min Blood Pressure Systolic (8480-6) 112 mm[Hg] Blood Pressure Diastolic (8462-4) 72 mm[Hg] 01/10/2025 12:47 PM Oxygen Saturation (80526-9) 94 % 01/09/2025 06:36 PM Temperature (8310-5) 97.6 [degF] Respiratory Rate (9279-1) 18 /min Heart Rate (8867-4) 70 /min Blood Pressure Systolic (8480-6) 108 mm[Hg] Blood Pressure Diastolic (8462-4) 62 mm[Hg] 01/09/2025 06:35 PM Oxygen Saturation (79064-5) 95 % 01/11/2025 02:01 PM Temperature (8310-5) 97.1 [degF] Oxygen Saturation (85882-1) 94 % Respiratory Rate (9279-1) 16 /min Heart Rate (8867-4) 73 /min Blood Pressure Systolic (8480-6) 113 mm[Hg] Blood Pressure Diastolic (8462-4) 71 mm[Hg] 01/10/2025 06:52 PM Temperature (8310-5) 98.2 [degF] Oxygen Saturation (26920-4) 94 % Respiratory Rate (9279-1) 18 /min Heart Rate (8867-4) 78 /min Blood Pressure Systolic (8480-6) 118 mm[Hg] Blood Pressure Diastolic (8462-4) 76 mm[Hg] 01/12/2025 01:40 AM Oxygen Saturation (01804-6) 94 % 01/12/2025 01:39 AM Temperature (8310-5) 98.2 [degF] Respiratory Rate (9279-1) 16 /min Heart Rate (8867-4) 63 /min Blood Pressure Systolic (8480-6) 99 mm[Hg] Blood Pressure Diastolic (8462-4) 57 mm[Hg] 01/11/2025 11:43 PM Oxygen Saturation (20418-9) 94 % 01/12/2025 09:28 PM Temperature (8310-5) 98.2 [degF] Oxygen Saturation (55607-0) 92 % Respiratory Rate (9279-1) 16 /min Heart Rate (8867-4) 72 /min Blood Pressure Systolic (8480-6) 123 mm[Hg] Blood Pressure Diastolic (8462-4) 73 mm[Hg] 01/12/2025 10:19 AM Oxygen Saturation (79200-2) 94 % 01/12/2025 08:39 AM Oxygen Saturation (57669-9) 94 % 01/12/2025 08:33 AM Temperature (8310-5) 98.2 [degF] Respiratory Rate (9279-1) 24 /min Heart Rate (8867-4) 78 /min Blood Pressure Systolic (8480-6) 112 mm[Hg] Blood Pressure Diastolic (8462-4) 56 mm[Hg] 01/13/2025 07:13 AM Temperature (8310-5) 97.6 [degF] Respiratory Rate (9279-1) 18 /min Heart Rate (8867-4) 70 /min Blood Pressure Systolic (8480-6) 134 mm[Hg] Blood Pressure Diastolic (8462-4) 68 mm[Hg] 01/13/2025 07:12 AM Oxygen Saturation (44670-4) 94 % 01/13/2025 09:05 PM Temperature (8310-5) 98 [degF] Oxygen Saturation (75866-5) 92 % Respiratory Rate (9279-1) 17 /min Heart Rate (8867-4) 80 /min Blood Pressure Systolic (8480-6) 94 mm[Hg] Blood Pressure Diastolic (8462-4) 54 mm[Hg] 01/14/2025 07:37 PM Temperature (8310-5) 97.7 [degF] Oxygen Saturation (10413-7) 94 % Respiratory Rate (9279-1) 19 /min Heart Rate (8867-4) 78 /min Blood Pressure Systolic (8480-6) 124 mm[Hg] Blood Pressure Diastolic (8462-4) 68 mm[Hg] 01/14/2025 09:30 AM Temperature (8310-5) 97.8 [degF] Respiratory Rate (9279-1) 18 /min Heart Rate (8867-4) 74 /min Blood Pressure Systolic (8480-6) 118 mm[Hg] Blood Pressure Diastolic (8462-4) 66 mm[Hg] 01/14/2025 09:29 AM Oxygen Saturation (19208-2) 94 % 01/15/2025 08:44 AM Temperature (8310-5) 98 [degF] Respiratory Rate (9279-1) 17 /min Heart Rate (8867-4) 73 /min Blood Pressure Systolic (8480-6) 142 mm[Hg] Blood Pressure Diastolic (8462-4) 91 mm[Hg] 01/15/2025 08:42 AM Oxygen Saturation (52875-8) 92 % 01/15/2025 06:49 PM Temperature (8310-5) 97.7 [degF] Respiratory Rate (9279-1) 18 /min Heart Rate (8867-4) 83 /min Blood Pressure Systolic (8480-6) 105 mm[Hg] Blood Pressure Diastolic (8462-4) 62 mm[Hg] 01/15/2025 06:48 PM Oxygen Saturation (44955-3) 93 % 01/16/2025 09:19 AM Temperature (8310-5) 97.2 [degF] Oxygen Saturation (25002-5) 90 % Respiratory Rate (9279-1) 17 /min Heart Rate (8867-4) 127 /min Blood Pressure Systolic (8480-6) 129 mm[Hg] Blood Pressure Diastolic (8462-4) 79 mm[Hg] 01/16/2025 06:24 PM Temperature (8310-5) 97.7 [degF] Oxygen Saturation (61015-0) 94 % Respiratory Rate (9279-1) 18 /min Heart Rate (8867-4) 84 /min Blood Pressure Systolic (8480-6) 118 mm[Hg] Blood Pressure Diastolic (8462-4) 66 mm[Hg] 01/17/2025 09:13 AM Temperature (8310-5) 97.4 [degF] Respiratory Rate (9279-1) 16 /min Heart Rate (8867-4) 81 /min Blood Pressure Systolic (8480-6) 121 mm[Hg] Blood Pressure Diastolic (8462-4) 68 mm[Hg] 01/17/2025 08:13 AM Oxygen Saturation (02773-5) 92 % 01/17/2025 07:17 PM Temperature (8310-5) 97.7 [degF] Respiratory Rate (9279-1) 18 /min Heart Rate (8867-4) 76 /min Blood Pressure Systolic (8480-6) 110 mm[Hg] Blood Pressure Diastolic (8462-4) 64 mm[Hg] 01/17/2025 07:16 PM Oxygen Saturation (37509-7) 96 % 01/18/2025 08:15 AM Temperature (8310-5) 98 [degF] Oxygen Saturation (68674-4) 86 % Respiratory Rate (9279-1) 19 /min Heart Rate (8867-4) 106 /min Blood Pressure Systolic (8480-6) 114 mm[Hg] Blood Pressure Diastolic (8462-4) 68 mm[Hg] 01/18/2025 07:59 PM Oxygen Saturation (36751-5) 92 % Blood Pressure Systolic (8480-6) 119 mm[Hg] Blood Pressure Diastolic (8462-4) 64 mm[Hg] 01/18/2025 07:37 PM Temperature (8310-5) 98.8 [degF] Respiratory Rate (9279-1) 16 /min Heart Rate (8867-4) 78 /min 01/18/2025 07:36 PM Oxygen Saturation (33697-2) 92 % 01/19/2025 09:38 AM Temperature (8310-5) 97.9 [degF] Oxygen Saturation (28372-4) 93 % Respiratory Rate (9279-1) 17 /min Heart Rate (8867-4) 81 /min Blood Pressure Systolic (8480-6) 121 mm[Hg] Blood Pressure Diastolic (8462-4) 74 mm[Hg] 01/19/2025 08:25 PM Temperature (8310-5) 98.6 [degF] Oxygen Saturation (96177-5) 95 % Respiratory Rate (9279-1) 17 /min Heart Rate (8867-4) 96 /min Blood Pressure Systolic (8480-6) 122 mm[Hg] Blood Pressure Diastolic (8462-4) 76 mm[Hg] 01/20/2025 09:36 AM Temperature (8310-5) 98 [degF] Oxygen Saturation (86857-9) 92 % Respiratory Rate (9279-1) 18 /min Heart Rate (8867-4) 74 /min Blood Pressure Systolic (8480-6) 136 mm[Hg] Blood Pressure Diastolic (8462-4) 77 mm[Hg] 01/20/2025 07:58 PM Temperature (8310-5) 98.6 [degF] Oxygen Saturation (31272-2) 92 % Respiratory Rate (9279-1) 17 /min Heart Rate (8867-4) 77 /min Blood Pressure Systolic (8480-6) 102 mm[Hg] Blood Pressure Diastolic (8462-4) 57 mm[Hg] 01/20/2025 07:50 PM Oxygen Saturation (80939-1) 92 % 01/21/2025 08:21 AM Temperature (8310-5) 98 [degF] Oxygen Saturation (59531-0) 93 % Respiratory Rate (9279-1) 18 /min Heart Rate (8867-4) 108 /min Blood Pressure Systolic (8480-6) 115 mm[Hg] Blood Pressure Diastolic (8462-4) 79 mm[Hg] 01/21/2025 06:49 PM Temperature (8310-5) 97.7 [degF] Respiratory Rate (9279-1) 18 /min Heart Rate (8867-4) 78 /min Blood Pressure Systolic (8480-6) 116 mm[Hg] Blood Pressure Diastolic (8462-4) 66 mm[Hg] 01/21/2025 06:48 PM Oxygen Saturation (96535-0) 93 % 01/22/2025 11:14 AM Temperature (8310-5) 97.9 [degF] Oxygen Saturation (70833-4) 94 % Respiratory Rate (9279-1) 18 /min Heart Rate (8867-4) 89 /min Blood Pressure Systolic (8480-6) 110 mm[Hg] Blood Pressure Diastolic (8462-4) 68 mm[Hg] 01/22/2025 06:45 PM Temperature (8310-5) 97.6 [degF] Oxygen Saturation (14110-9) 93 % Respiratory Rate (9279-1) 20 /min Heart Rate (8867-4) 82 /min Blood Pressure Systolic (8480-6) 115 mm[Hg] Blood Pressure Diastolic (8462-4) 71 mm[Hg] 01/23/2025 02:48 PM Temperature (8310-5) 96 [degF] Oxygen Saturation (06558-7) 98 % Respiratory Rate (9279-1) 17 /min Heart Rate (8867-4) 57 /min Blood Pressure Systolic (8480-6) 119 mm[Hg] Blood Pressure Diastolic (8462-4) 59 mm[Hg] 01/23/2025 01:56 PM Oxygen Saturation (85630-9) 94 % 01/23/2025 07:01 PM Temperature (8310-5) 97.7 [degF] Oxygen Saturation (47133-7) 94 % Respiratory Rate (9279-1) 18 /min Heart Rate (8867-4) 94 /min Blood Pressure Systolic (8480-6) 103 mm[Hg] Blood Pressure Diastolic (8462-4) 69 mm[Hg] 01/24/2025 09:42 AM Oxygen Saturation (89511-9) 94 % 01/24/2025 03:08 PM Temperature (8310-5) 97.9 [degF] Respiratory Rate (9279-1) 16 /min Heart Rate (8867-4) 73 /min Blood Pressure Systolic (8480-6) 121 mm[Hg] Blood Pressure Diastolic (8462-4) 69 mm[Hg] 01/24/2025 06:57 PM Temperature (8310-5) 98.6 [degF] Oxygen Saturation (12015-1) 92 % Respiratory Rate (9279-1) 20 /min Heart Rate (8867-4) 78 /min Blood Pressure Systolic (8480-6) 132 mm[Hg] Blood Pressure Diastolic (8462-4) 74 mm[Hg] 01/25/2025 04:06 PM Temperature (8310-5) 98 [degF] Oxygen Saturation (43957-9) 92 % Respiratory Rate (9279-1) 19 /min Heart Rate (8867-4) 81 /min Blood Pressure Systolic (8480-6) 140 mm[Hg] Blood Pressure Diastolic (8462-4) 81 mm[Hg] 01/25/2025 08:13 PM Temperature (8310-5) 98.6 [degF] Oxygen Saturation (27271-2) 92 % Respiratory Rate (9279-1) 16 /min Heart Rate (8867-4) 85 /min Blood Pressure Systolic (8480-6) 115 mm[Hg] Blood Pressure Diastolic (8462-4) 62 mm[Hg] 01/26/2025 08:29 AM Temperature (8310-5) 98.7 [degF] Oxygen Saturation (43295-7) 97 % Respiratory Rate (9279-1) 20 /min Heart Rate (8867-4) 70 /min Blood Pressure Systolic (8480-6) 120 mm[Hg] Blood Pressure Diastolic (8462-4) 60 mm[Hg] 01/26/2025 07:44 PM Temperature (8310-5) 98.6 [degF] Oxygen Saturation (28610-7) 94 % Respiratory Rate (9279-1) 17 /min Heart Rate (8867-4) 76 /min Blood Pressure Systolic (8480-6) 110 mm[Hg] Blood Pressure Diastolic (8462-4) 55 mm[Hg] 01/26/2025 07:39 PM Oxygen Saturation (39600-3) 94 % 01/27/2025 07:52 AM Temperature (8310-5) 97.8 [degF] Oxygen Saturation (77765-2) 90 % Respiratory Rate (9279-1) 16 /min Heart Rate (8867-4) 84 /min Blood Pressure Systolic (8480-6) 148 mm[Hg] Blood Pressure Diastolic (8462-4) 77 mm[Hg] 01/27/2025 10:06 PM Temperature (8310-5) 98.6 [degF] Oxygen Saturation (55749-1) 94 % Respiratory Rate (9279-1) 17 /min Heart Rate (8867-4) 66 /min Blood Pressure Systolic (8480-6) 115 mm[Hg] Blood Pressure Diastolic (8462-4) 50 mm[Hg] 01/27/2025 10:05 PM Oxygen Saturation (88450-9) 94 % 01/28/2025 08:09 AM Oxygen Saturation (39407-3) 92 % 01/28/2025 03:39 PM Temperature (8310-5) 97.9 [degF] Respiratory Rate (9279-1) 18 /min Heart Rate (8867-4) 70 /min Blood Pressure Systolic (8480-6) 119 mm[Hg] Blood Pressure Diastolic (8462-4) 62 mm[Hg] 01/28/2025 08:02 PM Temperature (8310-5) 97.3 [degF] Respiratory Rate (9279-1) 17 /min Heart Rate (8867-4) 72 /min Blood Pressure Systolic (8480-6) 111 mm[Hg] Blood Pressure Diastolic (8462-4) 65 mm[Hg] 01/28/2025 06:31 PM Oxygen Saturation (91112-9) 93 % 01/29/2025 09:23 AM Oxygen Saturation (91517-7) 94 % 01/29/2025 02:24 PM Temperature (8310-5) 98 [degF] Respiratory Rate (9279-1) 18 /min Heart Rate (8867-4) 68 /min Blood Pressure Systolic (8480-6) 123 mm[Hg] Blood Pressure Diastolic (8462-4) 70 mm[Hg] 01/29/2025 07:01 PM Temperature (8310-5) 97.7 [degF] Oxygen Saturation (23013-2) 93 % Respiratory Rate (9279-1) 18 /min Heart Rate (8867-4) 81 /min Blood Pressure Systolic (8480-6) 100 mm[Hg] Blood Pressure Diastolic (8462-4) 62 mm[Hg] 01/30/2025 09:16 AM Temperature (8310-5) 97.9 [degF] Oxygen Saturation (70512-3) 93 % Respiratory Rate (9279-1) 17 /min Heart Rate (8867-4) 66 /min Blood Pressure Systolic (8480-6) 83 mm[Hg] Blood Pressure Diastolic (8462-4) 65 mm[Hg] 01/30/2025 07:05 PM Temperature (8310-5) 97.8 [degF] Oxygen Saturation (47107-8) 93 % Respiratory Rate (9279-1) 18 /min Heart Rate (8867-4) 89 /min Blood Pressure Systolic (8480-6) 105 mm[Hg] Blood Pressure Diastolic (8462-4) 62 mm[Hg] 01/30/2025 07:04 PM Oxygen Saturation (13920-1) 93 % 2025 09:08 AM Temperature (8310-5) 97.7 [degF] Respiratory Rate (9279-1) 16 /min Heart Rate (8867-4) 66 /min Blood Pressure Systolic (8480-6) 98 mm[Hg] Blood Pressure Diastolic (8462-4) 51 mm[Hg] 2025 09:07 AM Oxygen Saturation (83892-7) 90 % 2025 06:46 PM Temperature (8310-5) 98 [degF] Oxygen Saturation (24490-6) 93 % Respiratory Rate (9279-1) 18 /min Heart Rate (8867-4) 68 /min Blood Pressure Systolic (8480-6) 117 mm[Hg] Blood Pressure Diastolic (8462-4) 66 mm[Hg] 2025 06:45 PM Oxygen Saturation (90442-3) 93 % 02/01/2025 01:59 PM Temperature (8310-5) 97.3 [degF] Respiratory Rate (9279-1) 17 /min Heart Rate (8867-4) 137 /min Blood Pressure Systolic (8480-6) 84 mm[Hg] Blood Pressure Diastolic (8462-4) 63 mm[Hg] 02/01/2025 01:58 PM Oxygen Saturation (14020-5) 90 % 02/02/2025 12:03 AM Temperature (8310-5) 98.6 [degF] Oxygen Saturation (94959-1) 92 % Respiratory Rate (9279-1) 17 /min Heart Rate (8867-4) 88 /min Blood Pressure Systolic (8480-6) 106 mm[Hg] Blood Pressure Diastolic (8462-4) 59 mm[Hg] 02/01/2025 11:02 PM Oxygen Saturation (82805-4) 92 % 02/02/2025 09:40 AM Temperature (8310-5) 98 [degF] Respiratory Rate (9279-1) 17 /min Heart Rate (8867-4) 83 /min Blood Pressure Systolic (8480-6) 119 mm[Hg] Blood Pressure Diastolic (8462-4) 62 mm[Hg] 02/02/2025 09:39 AM Oxygen Saturation (75814-6) 93 % 02/02/2025 07:37 PM Temperature (8310-5) 98.6 [degF] Oxygen Saturation (07892-5) 93 % Respiratory Rate (9279-1) 17 /min Heart Rate (8867-4) 70 /min Blood Pressure Systolic (8480-6) 110 mm[Hg] Blood Pressure Diastolic (8462-4) 66 mm[Hg] 02/02/2025 07:36 PM Oxygen Saturation (92586-8) 93 % 02/03/2025 10:00 AM Temperature (8310-5) 98 [degF] Oxygen Saturation (96667-0) 94 % Respiratory Rate (9279-1) 18 /min Heart Rate (8867-4) 75 /min Blood Pressure Systolic (8480-6) 104 mm[Hg] Blood Pressure Diastolic (8462-4) 62 mm[Hg] 02/04/2025 06:39 AM Oxygen Saturation (09667-2) 92 % 02/04/2025 05:12 AM Temperature (8310-5) 98.6 [degF] Oxygen Saturation (24092-6) 93 % Respiratory Rate (9279-1) 17 /min Heart Rate (8867-4) 80 /min Blood Pressure Systolic (8480-6) 124 mm[Hg] Blood Pressure Diastolic (8462-4) 73 mm[Hg] 02/04/2025 01:36 PM Temperature (8310-5) 96.9 [degF] Oxygen Saturation (13445-0) 92 % Respiratory Rate (9279-1) 18 /min Heart Rate (8867-4) 75 /min Blood Pressure Systolic (8480-6) 103 mm[Hg] Blood Pressure Diastolic (8462-4) 67 mm[Hg] 02/04/2025 06:26 PM Temperature (8310-5) 97.3 [degF] Oxygen Saturation (32168-4) 98 % Respiratory Rate (9279-1) 18 /min Heart Rate (8867-4) 91 /min Blood Pressure Systolic (8480-6) 96 mm[Hg] Blood Pressure Diastolic (8462-4) 60 mm[Hg] 02/05/2025 09:43 AM Temperature (8310-5) 97.8 [degF] Respiratory Rate (9279-1) 18 /min Heart Rate (8867-4) 83 /min Blood Pressure Systolic (8480-6) 121 mm[Hg] Blood Pressure Diastolic (8462-4) 73 mm[Hg] 02/05/2025 08:00 AM Oxygen Saturation (60660-2) 94 % 02/05/2025 02:16 PM Body Weight (95726-8) 161 [lb_av] Body Mass Index (65828-4) 25.21 kg/m2 02/05/2025 11:28 PM Oxygen Saturation (56441-4) 92 % 02/05/2025 11:29 PM Temperature (8310-5) 97.6 [degF] Respiratory Rate (9279-1) 16 /min Heart Rate (8867-4) 86 /min Blood Pressure Systolic (8480-6) 122 mm[Hg] Blood Pressure Diastolic (8462-4) 61 mm[Hg] 02/06/2025 05:16 PM Temperature (8310-5) 97.6 [degF] Respiratory Rate (9279-1) 17 /min Heart Rate (8867-4) 76 /min Blood Pressure Systolic (8480-6) 117 mm[Hg] Blood Pressure Diastolic (8462-4) 76 mm[Hg] 02/06/2025 04:34 PM Oxygen Saturation (80956-1) 94 % 02/06/2025 08:18 PM Temperature (8310-5) 98 [degF] Oxygen Saturation (81603-4) 93 % Respiratory Rate (9279-1) 19 /min Heart Rate (8867-4) 86 /min Blood Pressure Systolic (8480-6) 125 mm[Hg] Blood Pressure Diastolic (8462-4) 65 mm[Hg] 02/07/2025 09:51 AM Temperature (8310-5) 97.9 [degF] Oxygen Saturation (09053-1) 94 % Respiratory Rate (9279-1) 17 /min Heart Rate (8867-4) 70 /min Blood Pressure Systolic (8480-6) 117 mm[Hg] Blood Pressure Diastolic (8462-4) 62 mm[Hg] 02/07/2025 08:33 PM Oxygen Saturation (41147-8) 98 % 02/07/2025 08:34 PM Temperature (8310-5) 98 [degF] Respiratory Rate (9279-1) 18 /min Heart Rate (8867-4) 70 /min Blood Pressure Systolic (8480-6) 132 mm[Hg] Blood Pressure Diastolic (8462-4) 88 mm[Hg] 02/08/2025 10:15 AM Temperature (8310-5) 97.1 [degF] Oxygen Saturation (44559-7) 90 % Respiratory Rate (9279-1) 17 /min Heart Rate (8867-4) 93 /min Blood Pressure Systolic (8480-6) 122 mm[Hg] Blood Pressure Diastolic (8462-4) 76 mm[Hg] 02/09/2025 08:21 AM Temperature (8310-5) 98.5 [degF] Respiratory Rate (9279-1) 18 /min Heart Rate (8867-4) 77 /min Blood Pressure Systolic (8480-6) 115 mm[Hg] Blood Pressure Diastolic (8462-4) 64 mm[Hg] 02/09/2025 01:52 AM Temperature (8310-5) 98.2 [degF] Oxygen Saturation (36200-7) 96 % Respiratory Rate (9279-1) 16 /min Heart Rate (8867-4) 74 /min Blood Pressure Systolic (8480-6) 99 mm[Hg] Blood Pressure Diastolic (8462-4) 56 mm[Hg] 02/09/2025 08:19 AM Oxygen Saturation (18704-3) 97 % 02/10/2025 12:09 AM Oxygen Saturation (33933-1) 94 % 02/10/2025 12:10 AM Temperature (8310-5) 97.9 [degF] Oxygen Saturation (36497-4) 94 % Respiratory Rate (9279-1) 18 /min Heart Rate (8867-4) 75 /min Blood Pressure Systolic (8480-6) 130 mm[Hg] Blood Pressure Diastolic (8462-4) 70 mm[Hg] 02/10/2025 07:36 AM Temperature (8310-5) 97.5 [degF] Oxygen Saturation (37268-9) 95 % Respiratory Rate (9279-1) 18 /min Heart Rate (8867-4) 65 /min Blood Pressure Systolic (8480-6) 132 mm[Hg] Blood Pressure Diastolic (8462-4) 60 mm[Hg] 02/10/2025 10:48 PM Oxygen Saturation (74287-0) 90 % 02/10/2025 10:47 PM Temperature (8310-5) 97.6 [degF] Oxygen Saturation (74483-6) 90 % Respiratory Rate (9279-1) 17 /min Heart Rate (8867-4) 82 /min Blood Pressure Systolic (8480-6) 103 mm[Hg] Blood Pressure Diastolic (8462-4) 67 mm[Hg] 02/11/2025 06:16 PM Temperature (8310-5) 98 [degF] Oxygen Saturation (18755-1) 94 % Respiratory Rate (9279-1) 18 /min Heart Rate (8867-4) 88 /min Blood Pressure Systolic (8480-6) 114 mm[Hg] Blood Pressure Diastolic (8462-4) 60 mm[Hg] 02/11/2025 11:09 AM Temperature (8310-5) 98 [degF] Oxygen Saturation (58374-7) 93 % Respiratory Rate (9279-1) 17 /min Heart Rate (8867-4) 69 /min Blood Pressure Systolic (8480-6) 117 mm[Hg] Blood Pressure Diastolic (8462-4) 60 mm[Hg] 02/12/2025 08:52 AM Temperature (8310-5) 97.6 [degF] Oxygen Saturation (54011-2) 94 % Respiratory Rate (9279-1) 17 /min Heart Rate (8867-4) 78 /min Blood Pressure Systolic (8480-6) 104 mm[Hg] Blood Pressure Diastolic (8462-4) 72 mm[Hg] 02/12/2025 06:54 PM Temperature (8310-5) 97.8 [degF] Oxygen Saturation (97516-0) 94 % Respiratory Rate (9279-1) 18 /min Heart Rate (8867-4) 86 /min Blood Pressure Systolic (8480-6) 114 mm[Hg] Blood Pressure Diastolic (8462-4) 70 mm[Hg] 02/13/2025 08:32 AM Temperature (8310-5) 97.2 [degF] Oxygen Saturation (15730-5) 92 % Respiratory Rate (9279-1) 16 /min Heart Rate (8867-4) 58 /min Blood Pressure Systolic (8480-6) 132 mm[Hg] Blood Pressure Diastolic (8462-4) 75 mm[Hg] 02/13/2025 06:46 PM Temperature (8310-5) 97.4 [degF] Respiratory Rate (9279-1) 18 /min Heart Rate (8867-4) 79 /min Blood Pressure Systolic (8480-6) 114 mm[Hg] Blood Pressure Diastolic (8462-4) 64 mm[Hg] 02/13/2025 06:45 PM Oxygen Saturation (24569-7) 93 % 02/14/2025 05:35 PM Temperature (8310-5) 97.8 [degF] Oxygen Saturation (17819-6) 92 % Respiratory Rate (9279-1) 17 /min Heart Rate (8867-4) 80 /min Blood Pressure Systolic (8480-6) 119 mm[Hg] Blood Pressure Diastolic (8462-4) 72 mm[Hg] 02/14/2025 08:12 PM Temperature (8310-5) 97.7 [degF] Oxygen Saturation (63570-2) 93 % Respiratory Rate (9279-1) 18 /min Heart Rate (8867-4) 74 /min Blood Pressure Systolic (8480-6) 108 mm[Hg] Blood Pressure Diastolic (8462-4) 64 mm[Hg] 02/15/2025 11:36 AM Temperature (8310-5) 97.1 [degF] Oxygen Saturation (56511-5) 96 % Respiratory Rate (9279-1) 17 /min Heart Rate (8867-4) 98 /min Blood Pressure Systolic (8480-6) 118 mm[Hg] Blood Pressure Diastolic (8462-4) 81 mm[Hg] 02/16/2025 12:02 AM Oxygen Saturation (63478-1) 97 % 02/16/2025 12:03 AM Temperature (8310-5) 96.4 [degF] Oxygen Saturation (94177-5) 97 % Respiratory Rate (9279-1) 17 /min Heart Rate (8867-4) 64 /min Blood Pressure Systolic (8480-6) 112 mm[Hg] Blood Pressure Diastolic (8462-4) 72 mm[Hg] 02/16/2025 12:05 PM Temperature (8310-5) 97.4 [degF] Oxygen Saturation (75320-7) 95 % Respiratory Rate (9279-1) 16 /min Heart Rate (8867-4) 76 /min Blood Pressure Systolic (8480-6) 109 mm[Hg] Blood Pressure Diastolic (8462-4) 70 mm[Hg] 02/16/2025 07:55 PM Oxygen Saturation (62224-4) 97 % 02/16/2025 07:41 PM Temperature (8310-5) 97.1 [degF] Oxygen Saturation (94944-7) 97 % Respiratory Rate (9279-1) 16 /min Heart Rate (8867-4) 66 /min Blood Pressure Systolic (8480-6) 141 mm[Hg] Blood Pressure Diastolic (8462-4) 66 mm[Hg] 02/17/2025 01:38 PM Temperature (8310-5) 97.9 [degF] Oxygen Saturation (80437-4) 95 % Respiratory Rate (9279-1) 18 /min Heart Rate (8867-4) 77 /min Blood Pressure Systolic (8480-6) 127 mm[Hg] Blood Pressure Diastolic (8462-4) 76 mm[Hg] 02/17/2025 07:43 PM Temperature (8310-5) 97.8 [degF] Oxygen Saturation (38323-4) 95 % Respiratory Rate (9279-1) 17 /min Heart Rate (8867-4) 85 /min Blood Pressure Systolic (8480-6) 122 mm[Hg] Blood Pressure Diastolic (8462-4) 67 mm[Hg] 02/17/2025 07:42 PM Oxygen Saturation (46676-1) 95 % 02/18/2025 08:17 AM Oxygen Saturation (09597-7) 96 % 02/18/2025 10:30 AM Temperature (8310-5) 97.7 [degF] Respiratory Rate (9279-1) 17 /min Heart Rate (8867-4) 78 /min Blood Pressure Systolic (8480-6) 108 mm[Hg] Blood Pressure Diastolic (8462-4) 60 mm[Hg] 02/18/2025 08:25 PM Temperature (8310-5) 97.1 [degF] Oxygen Saturation (36932-9) 94 % Respiratory Rate (9279-1) 20 /min Heart Rate (8867-4) 75 /min Blood Pressure Systolic (8480-6) 121 mm[Hg] Blood Pressure Diastolic (8462-4) 63 mm[Hg] 02/19/2025 08:00 AM Oxygen Saturation (49244-0) 94 % 02/19/2025 10:56 AM Temperature (8310-5) 97.9 [degF] Respiratory Rate (9279-1) 17 /min Heart Rate (8867-4) 73 /min Blood Pressure Systolic (8480-6) 118 mm[Hg] Blood Pressure Diastolic (8462-4) 69 mm[Hg] 02/19/2025 06:27 PM Temperature (8310-5) 97.7 [degF] Oxygen Saturation (02969-9) 93 % Respiratory Rate (9279-1) 18 /min Heart Rate (8867-4) 72 /min Blood Pressure Systolic (8480-6) 106 mm[Hg] Blood Pressure Diastolic (8462-4) 64 mm[Hg] 02/20/2025 04:28 PM Temperature (8310-5) 97.3 [degF] Oxygen Saturation (34343-3) 93 % Respiratory Rate (9279-1) 15 /min Heart Rate (8867-4) 62 /min Blood Pressure Systolic (8480-6) 123 mm[Hg] Blood Pressure Diastolic (8462-4) 80 mm[Hg] 02/20/2025 07:11 PM Temperature (8310-5) 97.1 [degF] Oxygen Saturation (65928-8) 93 % Respiratory Rate (9279-1) 17 /min Heart Rate (8867-4) 65 /min Blood Pressure Systolic (8480-6) 117 mm[Hg] Blood Pressure Diastolic (8462-4) 73 mm[Hg] 02/21/2025 08:43 AM Temperature (8310-5) 97.9 [degF] Oxygen Saturation (09056-4) 94 % Respiratory Rate (9279-1) 17 /min Heart Rate (8867-4) 73 /min Blood Pressure Systolic (8480-6) 109 mm[Hg] Blood Pressure Diastolic (8462-4) 62 mm[Hg] 02/21/2025 07:02 PM Temperature (8310-5) 98.2 [degF] Oxygen Saturation (84738-2) 93 % Respiratory Rate (9279-1) 20 /min Heart Rate (8867-4) 78 /min Blood Pressure Systolic (8480-6) 112 mm[Hg] Blood Pressure Diastolic (8462-4) 60 mm[Hg] 02/22/2025 03:17 PM Temperature (8310-5) 98.3 [degF] Oxygen Saturation (01450-0) 94 % Respiratory Rate (9279-1) 18 /min Heart Rate (8867-4) 76 /min Blood Pressure Systolic (8480-6) 113 mm[Hg] Blood Pressure Diastolic (8462-4) 68 mm[Hg] 02/22/2025 07:55 PM Oxygen Saturation (23778-7) 98 % 02/22/2025 07:54 PM Temperature (8310-5) 98 [degF] Oxygen Saturation (95382-3) 98 % Respiratory Rate (9279-1) 16 /min Heart Rate (8867-4) 64 /min Blood Pressure Systolic (8480-6) 128 mm[Hg] Blood Pressure Diastolic (8462-4) 72 mm[Hg] 02/23/2025 09:15 AM Temperature (8310-5) 97.5 [degF] Oxygen Saturation (66192-5) 95 % Respiratory Rate (9279-1) 20 /min Heart Rate (8867-4) 64 /min Blood Pressure Systolic (8480-6) 132 mm[Hg] Blood Pressure Diastolic (8462-4) 81 mm[Hg] 02/24/2025 01:06 AM Temperature (8310-5) 98.6 [degF] Oxygen Saturation (20880-0) 95 % Respiratory Rate (9279-1) 16 /min Heart Rate (8867-4) 65 /min Blood Pressure Systolic (8480-6) 98 mm[Hg] Blood Pressure Diastolic (8462-4) 51 mm[Hg] 02/23/2025 10:38 PM Oxygen Saturation (94225-9) 96 % 02/24/2025 09:28 AM Temperature (8310-5) 97.4 [degF] Oxygen Saturation (93372-1) 93 % Respiratory Rate (9279-1) 20 /min Heart Rate (8867-4) 59 /min Blood Pressure Systolic (8480-6) 136 mm[Hg] Blood Pressure Diastolic (8462-4) 70 mm[Hg] 02/24/2025 09:27 AM Oxygen Saturation (57894-2) 93 % 02/24/2025 07:52 PM Temperature (8310-5) 97.6 [degF] Oxygen Saturation (37452-6) 94 % Respiratory Rate (9279-1) 16 /min Heart Rate (8867-4) 63 /min Blood Pressure Systolic (8480-6) 127 mm[Hg] Blood Pressure Diastolic (8462-4) 63 mm[Hg] 02/25/2025 02:43 PM Temperature (8310-5) 97.9 [degF] Oxygen Saturation (56492-3) 94 % Respiratory Rate (9279-1) 17 /min Heart Rate (8867-4) 74 /min Blood Pressure Systolic (8480-6) 112 mm[Hg] Blood Pressure Diastolic (8462-4) 60 mm[Hg] 02/25/2025 06:22 PM Temperature (8310-5) 97.6 [degF] Oxygen Saturation (11940-2) 94 % Respiratory Rate (9279-1) 19 /min Heart Rate (8867-4) 64 /min Blood Pressure Systolic (8480-6) 118 mm[Hg] Blood Pressure Diastolic (8462-4) 71 mm[Hg] 02/26/2025 08:59 AM Temperature (8310-5) 97.4 [degF] Respiratory Rate (9279-1) 18 /min Heart Rate (8867-4) 72 /min Blood Pressure Systolic (8480-6) 114 mm[Hg] Blood Pressure Diastolic (8462-4) 62 mm[Hg] 02/26/2025 08:56 AM Oxygen Saturation (59322-2) 94 % 02/26/2025 06:35 PM Temperature (8310-5) 97.8 [degF] Oxygen Saturation (03989-8) 96 % Respiratory Rate (9279-1) 18 /min Heart Rate (8867-4) 64 /min Blood Pressure Systolic (8480-6) 110 mm[Hg] Blood Pressure Diastolic (8462-4) 68 mm[Hg] 02/27/2025 09:25 AM Temperature (8310-5) 97.4 [degF] Oxygen Saturation (68282-4) 90 % Respiratory Rate (9279-1) 15 /min Heart Rate (8867-4) 54 /min Blood Pressure Systolic (8480-6) 122 mm[Hg] Blood Pressure Diastolic (8462-4) 74 mm[Hg] 02/27/2025 06:08 PM Temperature (8310-5) 97.6 [degF] Oxygen Saturation (63373-8) 96 % Respiratory Rate (9279-1) 18 /min Heart Rate (8867-4) 68 /min Blood Pressure Systolic (8480-6) 112 mm[Hg] Blood Pressure Diastolic (8462-4) 66 mm[Hg] 02/28/2025 12:40 PM Temperature (8310-5) 98.1 [degF] Oxygen Saturation (90334-4) 95 % Respiratory Rate (9279-1) 18 /min Heart Rate (8867-4) 70 /min Blood Pressure Systolic (8480-6) 118 mm[Hg] Blood Pressure Diastolic (8462-4) 70 mm[Hg] 02/28/2025 12:39 PM Oxygen Saturation (91218-2) 95 % 02/28/2025 06:49 PM Temperature (8310-5) 97.7 [degF] Oxygen Saturation (98434-8) 95 % Respiratory Rate (9279-1) 18 /min Heart Rate (8867-4) 67 /min Blood Pressure Systolic (8480-6) 114 mm[Hg] Blood Pressure Diastolic (8462-4) 64 mm[Hg] 03/01/2025 08:52 AM Temperature (8310-5) 98.1 [degF] Oxygen Saturation (54827-1) 94 % Respiratory Rate (9279-1) 17 /min Heart Rate (8867-4) 67 /min Blood Pressure Systolic (8480-6) 96 mm[Hg] Blood Pressure Diastolic (8462-4) 50 mm[Hg] 03/01/2025 07:53 PM Temperature (8310-5) 97.5 [degF] Oxygen Saturation (33441-0) 95 % Respiratory Rate (9279-1) 17 /min Heart Rate (8867-4) 58 /min Blood Pressure Systolic (8480-6) 124 mm[Hg] Blood Pressure Diastolic (8462-4) 64 mm[Hg] 03/02/2025 08:13 AM Oxygen Saturation (34534-4) 94 % 03/03/2025 08:22 AM Oxygen Saturation (06822-2) 93 % 03/02/2025 06:52 PM Oxygen Saturation (08099-2) 97 % 03/03/2025 07:42 PM Oxygen Saturation (93138-0) 92 % 03/04/2025 08:14 AM Oxygen Saturation (05629-4) 94 % 03/04/2025 06:26 PM Oxygen Saturation (62673-6) 95 % 03/05/2025 08:33 AM Oxygen Saturation (25680-8) 94 % 03/05/2025 07:04 PM Oxygen Saturation (85477-2) 94 % 03/06/2025 02:57 PM Temperature (8310-5) 96.2 [degF] Oxygen Saturation (69168-5) 95 % Respiratory Rate (9279-1) 16 /min Heart Rate (8867-4) 60 /min Blood Pressure Systolic (8480-6) 124 mm[Hg] Blood Pressure Diastolic (8462-4) 80 mm[Hg] 03/06/2025 06:12 PM Oxygen Saturation (25998-2) 95 % 03/07/2025 06:01 PM Body Weight (15552-6) 167.8 [lb_av ] Body Mass Index (44989-2) 26.28 kg/m2 03/07/2025 03:09 PM Oxygen Saturation (93212-8) 94 % 03/07/2025 06:44 PM Oxygen Saturation (34404-3) 93 % 03/08/2025 11:38 AM Oxygen Saturation (90194-2) 95 % 03/09/2025 01:29 AM Oxygen Saturation (79251-1) 97 % 03/09/2025 09:42 AM Oxygen Saturation (89508-1) 92 % 03/09/2025 10:31 PM Oxygen Saturation (71350-8) 93 % 03/10/2025 08:59 AM Oxygen Saturation (00943-0) 97 % 03/11/2025 12:58 AM Oxygen Saturation (29005-5) 93 % 03/11/2025 05:14 PM Body Weight (89657-6) 166.4 [lb_av ] Body Mass Index (39967-5) 26.06 kg/m2 03/11/2025 12:17 PM Oxygen Saturation (41534-6) 94 % 07/11/2025 08:41 PM Oxygen Saturation (72286-1) 95 % 07/10/2025 08:25 AM Temperature (8310-5) 97 [degF] Respiratory Rate (9279-1) 16 /min Heart Rate (8867-4) 70 /min Blood Pressure Systolic (8480-6) 132 mm[Hg] Blood Pressure Diastolic (8462-4) 81 mm[Hg] 07/12/2025 07:06 AM Oxygen Saturation (27740-9) 96 % 07/09/2025 08:23 AM Oxygen Saturation (84505-2) 95 % 07/07/2025 08:16 PM Oxygen Saturation (09283-1) 94 % 07/10/2025 11:39 PM Oxygen Saturation (98800-8) 97 % 07/09/2025 11:28 PM Oxygen Saturation (26476-5) 96 % 07/07/2025 07:14 AM Oxygen Saturation (47641-1) 95 % 06/26/2025 12:47 PM Temperature (8310-5) 98.4 [degF] Respiratory Rate (9279-1) 18 /min Heart Rate (8867-4) 77 /min Blood Pressure Systolic (8480-6) 126 mm[Hg] Blood Pressure Diastolic (8462-4) 78 mm[Hg] 07/11/2025 07:07 AM Oxygen Saturation (99799-0) 96 % 06/19/2025 07:49 AM Temperature (8310-5) 98 [degF] Respiratory Rate (9279-1) 15 /min Heart Rate (8867-4) 78 /min Blood Pressure Systolic (8480-6) 128 mm[Hg] Blood Pressure Diastolic (8462-4) 60 mm[Hg] 07/10/2025 08:24 AM Oxygen Saturation (95001-1) 95 % 07/03/2025 10:42 AM Temperature (8310-5) 98.2 [degF] Respiratory Rate (9279-1) 16 /min Heart Rate (8867-4) 70 /min Blood Pressure Systolic (8480-6) 122 mm[Hg] Blood Pressure Diastolic (8462-4) 72 mm[Hg] 07/08/2025 11:46 AM Oxygen Saturation (88017-7) 92 % 07/08/2025 11:47 AM Body Weight (37144-9) 177.6 [lb_av ] Body Mass Index (17102-2) 27.81 kg/m2 06/07/2025 11:19 AM Body Weight (51037-1) 180.8 [lb_av ] Body Mass Index (07127-5) 28.31 kg/m2 06/12/2025 02:09 PM Temperature (8310-5) 97.8 [degF] Respiratory Rate (9279-1) 20 /min Heart Rate (8867-4) 69 /min Blood Pressure Systolic (8480-6) 136 mm[Hg] Blood Pressure Diastolic (8462-4) 82 mm[Hg] 05/07/2025 01:49 PM Body Weight (09358-8) 176.6 [lb_av ] Body Mass Index (35818-5) 27.66 kg/m2 05/08/2025 10:45 AM Temperature (8310-5) 97.9 [degF] Respiratory Rate (9279-1) 18 /min Heart Rate (8867-4) 84 /min Blood Pressure Systolic (8480-6) 108 mm[Hg] Blood Pressure Diastolic (8462-4) 63 mm[Hg] 05/22/2025 09:41 AM Temperature (8310-5) 97.9 [degF] Respiratory Rate (9279-1) 19 /min Heart Rate (8867-4) 80 /min Blood Pressure Systolic (8480-6) 111 mm[Hg] Blood Pressure Diastolic (8462-4) 61 mm[Hg] 05/15/2025 03:20 PM Temperature (8310-5) 97.6 [degF] Respiratory Rate (9279-1) 16 /min Heart Rate (8867-4) 64 /min Blood Pressure Systolic (8480-6) 123 mm[Hg] Blood Pressure Diastolic (8462-4) 71 mm[Hg] 05/10/2025 08:32 AM Body Weight (96584-0) 180 [lb_av] Body Mass Index (05780-3) 28.19 kg/m2 05/29/2025 11:16 AM Temperature (8310-5) 98.1 [degF] Respiratory Rate (9279-1) 17 /min Heart Rate (8867-4) 71 /min Blood Pressure Systolic (8480-6) 154 mm[Hg] Blood Pressure Diastolic (8462-4) 77 mm[Hg] 05/09/2025 04:55 PM Body Weight (29826-3) 179.5 [lb_av ] Body Mass Index (25304-0) 28.11 kg/m2 05/11/2025 02:18 PM Body Weight (19348-9) 179.6 [lb_av ] Body Mass Index (05565-3) 28.13 kg/m2 06/05/2025 09:11 AM Temperature (8310-5) 97.4 [degF] Respiratory Rate (9279-1) 18 /min Heart Rate (8867-4) 67 /min Blood Pressure Systolic (8480-6) 146 mm[Hg] Blood Pressure Diastolic (8462-4) 87 mm[Hg] 07/12/2025 08:14 PM Oxygen Saturation (90839-9) 98 % 07/13/2025 07:02 AM Oxygen Saturation (19754-4) 97 % 07/13/2025 08:55 PM Oxygen Saturation (84761-7) 97 % 07/14/2025 07:08 AM Oxygen Saturation (27642-1) 96 % 07/14/2025 07:58 PM Oxygen Saturation (49281-4) 98 % 07/15/2025 08:35 AM Oxygen Saturation (90576-3) 97 % 07/15/2025 06:14 PM Oxygen Saturation (90126-0) 94 % 07/16/2025 07:11 AM Oxygen Saturation (05649-1) 96 % 07/17/2025 07:14 AM Temperature (8310-5) 97.9 [degF] Oxygen Saturation (63794-3) 94 % Respiratory Rate (9279-1) 15 /min Heart Rate (8867-4) 84 /min Blood Pressure Systolic (8480-6) 130 mm[Hg] Blood Pressure Diastolic (8462-4) 85 mm[Hg] 07/17/2025 08:31 PM Oxygen Saturation (26344-6) 94 % 07/18/2025 07:22 AM Oxygen Saturation (01330-4) 96 % 07/18/2025 07:16 PM Oxygen Saturation (43401-8) 97 % 07/19/2025 07:08 AM Oxygen Saturation (47895-5) 96 % 07/19/2025 11:22 PM Oxygen Saturation (24275-9) 94 % 07/20/2025 09:54 AM Oxygen Saturation (74903-7) 87 % 07/20/2025 09:35 PM Oxygen Saturation (60480-6) 92 % 07/21/2025 04:09 PM Oxygen Saturation (53752-6) 98 % 07/22/2025 09:38 AM Oxygen Saturation (44531-5) 98 % 07/22/2025 08:23 PM Oxygen Saturation (40184-4) 96 % 07/23/2025 01:16 PM Oxygen Saturation (48057-9) 97 % 07/24/2025 12:19 PM Oxygen Saturation (53698-8) 98 % 07/24/2025 12:20 PM Temperature (8310-5) 96.9 [degF] Respiratory Rate (9279-1) 18 /min Heart Rate (8867-4) 74 /min Blood Pressure Systolic (8480-6) 126 mm[Hg] Blood Pressure Diastolic (8462-4) 70 mm[Hg] 07/24/2025 10:29 PM Oxygen Saturation (22918-1) 96 % 07/25/2025 07:11 AM Oxygen Saturation (44592-1) 97 % 07/25/2025 07:30 PM Oxygen Saturation (66989-3) 96 % 07/26/2025 06:51 AM Oxygen Saturation (42892-8) 94 % 07/27/2025 07:25 AM Oxygen Saturation (14563-5) 98 % 07/27/2025 08:42 PM Oxygen Saturation (72403-8) 97 % 07/28/2025 06:59 AM Oxygen Saturation (24228-3) 98 % 07/28/2025 08:53 PM Oxygen Saturation (75882-6) 97 % 07/29/2025 10:47 AM Oxygen Saturation (65647-2) 93 % 07/30/2025 04:23 AM Oxygen Saturation (85976-5) 97 % 07/30/2025 07:13 AM Oxygen Saturation (05141-6) 98 % 07/30/2025 10:48 PM Oxygen Saturation (23524-7) 96 % 07/31/2025 07:41 AM Temperature (8310-5) 97.5 [degF] Oxygen Saturation (59073-2) 95 % Respiratory Rate (9279-1) 16 /min Heart Rate (8867-4) 70 /min Blood Pressure Systolic (8480-6) 130 mm[Hg] Blood Pressure Diastolic (8462-4) 84 mm[Hg] 07/31/2025 07:39 PM Oxygen Saturation (47265-1) 95 % 08/01/2025 06:53 AM Oxygen Saturation (39321-4) 96 % 08/01/2025 06:43 PM Oxygen Saturation (98066-8) 96 % 08/02/2025 06:54 AM Oxygen Saturation (13704-4) 96 % 08/02/2025 07:38 PM Oxygen Saturation (72577-2) 94 % 08/03/2025 09:53 AM Oxygen Saturation (24400-7) 97 % 08/03/2025 08:27 PM Oxygen Saturation (28203-1) 94 % 08/04/2025 08:38 AM Oxygen Saturation (31635-1) 91 % 08/04/2025 08:02 PM Oxygen Saturation (27415-1) 97 % 08/05/2025 06:32 AM Oxygen Saturation (98527-7) 98 % 08/06/2025 08:51 AM Oxygen Saturation (61255-1) 95 % 08/06/2025 02:51 AM Oxygen Saturation (69128-9) 96 % 08/06/2025 06:51 PM Oxygen Saturation (47335-1) 96 % 08/07/2025 08:52 AM Oxygen Saturation (19972-7) 96 % 08/07/2025 08:53 AM Temperature (8310-5) 98.1 [degF] Oxygen Saturation (15612-4) 96 % Respiratory Rate (9279-1) 17 /min Heart Rate (8867-4) 84 /min Blood Pressure Systolic (8480-6) 120 mm[Hg] Blood Pressure Diastolic (8462-4) 82 mm[Hg] 08/07/2025 11:13 AM Body Weight (92816-2) 178.4 [lb_av ] Body Mass Index (34127-9) 27.94 kg/m2 08/07/2025 11:40 PM Oxygen Saturation (80126-9) 90 % 08/08/2025 07:11 AM Oxygen Saturation (07219-3) 97 % 08/09/2025 03:25 AM Oxygen Saturation (07270-4) 97 % 08/09/2025 07:06 AM Oxygen Saturation (18774-0) 95 % 08/09/2025 08:17 PM Oxygen Saturation (26346-5) 95 % 08/10/2025 07:12 AM Oxygen Saturation (30530-4) 96 % 08/10/2025 08:45 PM Oxygen Saturation (89610-6) 97 % 08/11/2025 06:27 AM Oxygen Saturation (22440-9) 93 % 08/11/2025 07:48 PM Oxygen Saturation (30644-4) 94 % 08/12/2025 12:08 PM Oxygen Saturation (72524-1) 96 % 08/12/2025 08:15 PM Oxygen Saturation (69059-4) 92 % 08/13/2025 07:00 AM Oxygen Saturation (13368-4) 97 % 08/13/2025 07:37 PM Oxygen Saturation (37201-7) 97 % 08/14/2025 07:27 AM Temperature (8310-5) 97.5 [degF] Oxygen Saturation (04327-4) 97 % Respiratory Rate (9279-1) 19 /min Heart Rate (8867-4) 62 /min Blood Pressure Systolic (8480-6) 126 mm[Hg] Blood Pressure Diastolic (8462-4) 85 mm[Hg] 08/14/2025 09:55 PM Oxygen Saturation (04241-9) 94 % 08/15/2025 07:03 AM Oxygen Saturation (17836-2) 97 % 08/15/2025 07:04 PM Oxygen Saturation (70507-4) 95 % 08/16/2025 12:59 PM Oxygen Saturation (95166-4) 96 % 08/16/2025 11:12 PM Oxygen Saturation (38399-2) 96 % 08/17/2025 08:51 AM Oxygen Saturation (94218-1) 97 % 08/17/2025 11:46 PM Oxygen Saturation (34217-5) 97 % 08/18/2025 10:27 AM Oxygen Saturation (06161-7) 93 % 08/18/2025 11:33 PM Oxygen Saturation (80690-9) 97 % 08/19/2025 10:04 AM Oxygen Saturation (57946-6) 97 % 08/20/2025 12:27 AM Oxygen Saturation (72522-0) 96 % 08/20/2025 07:29 AM Oxygen Saturation (43853-3) 96 % 08/20/2025 02:22 PM Temperature (8310-5) 98 [degF] 08/20/2025 02:24 PM Temperature (8310-5) 98 [degF] 08/21/2025 08:14 AM Temperature (8310-5) 97.5 [degF] Respiratory Rate (9279-1) 15 /min Heart Rate (8867-4) 74 /min Blood Pressure Systolic (8480-6) 120 mm[Hg] Blood Pressure Diastolic (8462-4) 62 mm[Hg] 08/21/2025 08:13 AM Oxygen Saturation (51756-5) 90 % 08/21/2025 08:55 PM Oxygen Saturation (77432-9) 95 % 08/22/2025 07:26 AM Temperature (8310-5) 97.8 [degF] 08/22/2025 08:27 AM Oxygen Saturation (36142-9) 95 % 08/23/2025 12:23 AM Temperature (8310-5) 97 [degF] 08/23/2025 07:24 AM Oxygen Saturation (63693-1) 97 % 08/23/2025 03:47 AM Oxygen Saturation (54865-5) 96 % 08/24/2025 12:46 AM Oxygen Saturation (97038-0) 98 % 08/24/2025 07:49 AM Oxygen Saturation (88155-1) 93 % 08/24/2025 11:43 PM Oxygen Saturation (89945-1) 95 % 08/25/2025 10:37 AM Oxygen Saturation (53217-2) 98 % 08/26/2025 12:24 AM Oxygen Saturation (20813-5) 95 % 08/26/2025 10:45 AM Oxygen Saturation (14254-2) 93 % 08/26/2025 08:52 PM Oxygen Saturation (68314-2) 94 % 08/27/2025 08:09 AM Oxygen Saturation (91896-5) 91 % 08/28/2025 02:56 AM Oxygen Saturation (17386-1) 95 % 08/28/2025 09:38 AM Temperature (8310-5) 97.3 [degF] Oxygen Saturation (39445-6) 94 % Respiratory Rate (9279-1) 20 /min Heart Rate (8867-4) 74 /min Blood Pressure Systolic (8480-6) 104 mm[Hg] Blood Pressure Diastolic (8462-4) 54 mm[Hg] 08/28/2025 07:04 PM Oxygen Saturation (94553-4) 95 % 08/29/2025 07:12 AM Oxygen Saturation (84582-2) 98 % 08/30/2025 02:23 AM Oxygen Saturation (15416-7) 93 % 08/30/2025 10:03 AM Oxygen Saturation (18826-4) 95 % 08/30/2025 11:56 PM Oxygen Saturation (01462-6) 95 % 08/31/2025 10:59 PM Oxygen Saturation (52264-6) 95 % 09/01/2025 01:41 PM Oxygen Saturation (39281-9) 92 % 09/01/2025 08:32 PM Oxygen Saturation (27946-7) 95 % 09/02/2025 05:53 PM Oxygen Saturation (26152-8) 95 % 09/02/2025 07:24 PM Oxygen Saturation (01980-8) 93 % 09/03/2025 08:13 AM Oxygen Saturation (98994-7) 92 % 09/04/2025 12:17 AM Oxygen Saturation (34797-7) 94 % 09/04/2025 01:25 PM Oxygen Saturation (89810-2) 93 % 09/04/2025 01:26 PM Temperature (8310-5) 97.3 [degF] Respiratory Rate (9279-1) 22 /min Heart Rate (8867-4) 68 /min Blood Pressure Systolic (8480-6) 131 mm[Hg] Blood Pressure Diastolic (8462-4) 72 mm[Hg] 09/05/2025 07:51 AM Oxygen Saturation (46509-2) 98 % 09/05/2025 11:54 PM Oxygen Saturation (00806-7) 96 % 09/06/2025 07:00 AM Oxygen Saturation (70279-6) 97 % 09/06/2025 10:53 PM Oxygen Saturation (83366-5) 95 % 09/07/2025 07:30 AM Oxygen Saturation (13844-6) 96 % 09/07/2025 01:35 PM Body Weight (75124-1) 175.4 [lb_av ] Body Mass Index (01594-3) 27.47 kg/m2 09/08/2025 07:10 AM Oxygen Saturation (44981-7) 90 % 09/07/2025 10:04 PM Oxygen Saturation (94453-4) 96 % 09/08/2025 08:34 PM Oxygen Saturation (52110-3) 95 % 09/09/2025 03:21 PM Oxygen Saturation (50196-9) 95 % 09/09/2025 08:10 PM Oxygen Saturation (64821-7) 94 % 09/10/2025 07:55 AM Oxygen Saturation (82617-1) 97 % 09/11/2025 04:21 AM Oxygen Saturation (53091-7) 99 % 09/11/2025 07:54 AM Temperature (8310-5) 97.6 [degF] Oxygen Saturation (56165-3) 96 % Respiratory Rate (9279-1) 20 /min Heart Rate (8867-4) 54 /min Blood Pressure Systolic (8480-6) 125 mm[Hg] Blood Pressure Diastolic (8462-4) 60 mm[Hg] 09/11/2025 06:50 PM Oxygen Saturation (41837-4) 96 % 09/12/2025 06:50 AM Oxygen Saturation (64896-4) 98 % 09/13/2025 12:44 AM Oxygen Saturation (34940-4) 96 % 09/13/2025 09:16 AM Oxygen Saturation (69304-5) 96 % 09/13/2025 07:02 PM Oxygen Saturation (26563-5) 95 % 09/14/2025 02:32 PM Oxygen Saturation (69385-8) 94 % 09/14/2025 08:31 PM Oxygen Saturation (95863-9) 92 % 09/15/2025 09:29 AM Oxygen Saturation (79782-9) 91 % 09/15/2025 10:57 PM Oxygen Saturation (59542-7) 95 % 09/16/2025 12:06 AM Oxygen Saturation (06730-1) 94 % 09/16/2025 08:38 PM Oxygen Saturation (46015-2) 97 % 09/17/2025 10:03 AM Oxygen Saturation (23003-3) 95 % 09/17/2025 08:56 PM Oxygen Saturation (16709-8) 95 % 09/18/2025 09:33 AM Temperature (8310-5) 98.7 [degF] Oxygen Saturation (38097-8) 95 % Respiratory Rate (9279-1) 20 /min Heart Rate (8867-4) 71 /min Blood Pressure Systolic (8480-6) 102 mm[Hg] Blood Pressure Diastolic (8462-4) 68 mm[Hg] 09/18/2025 08:17 PM Oxygen Saturation (10624-0) 96 % 09/19/2025 06:57 AM Oxygen Saturation (89075-1) 97 % 09/19/2025 07:57 PM Oxygen Saturation (84287-0) 92 % 09/20/2025 06:44 AM Oxygen Saturation (05190-3) 96 % 09/20/2025 08:51 PM Oxygen Saturation (47628-1) 95 % 09/21/2025 07:01 AM Oxygen Saturation (63482-8) 93 % 09/22/2025 12:20 AM Oxygen Saturation (77021-9) 95 % 09/22/2025 06:35 AM Oxygen Saturation (76739-2) 96 % 09/22/2025 09:00 PM Oxygen Saturation (48500-7) 95 % 09/24/2025 12:08 AM Oxygen Saturation (06478-2) 96 % 09/23/2025 05:30 PM Oxygen Saturation (70864-2) 95 % 09/24/2025 07:27 AM Oxygen Saturation (17858-6) 93 % 09/25/2025 08:19 AM Temperature (8310-5) 98.4 [degF] Oxygen Saturation (84340-6) 94 % Respiratory Rate (9279-1) 16 /min Heart Rate (8867-4) 71 /min Blood Pressure Systolic (8480-6) 138 mm[Hg] Blood Pressure Diastolic (8462-4) 79 mm[Hg] 09/26/2025 07:32 AM Oxygen Saturation (16894-9) 96 % 09/27/2025 04:00 PM Oxygen Saturation (07729-9) 93 % 09/28/2025 01:23 AM Oxygen Saturation (86953-7) 95 % 09/28/2025 08:56 AM Oxygen Saturation (94810-9) 99 % 09/28/2025 09:09 PM Oxygen Saturation (55201-8) 95 % 09/29/2025 10:55 AM Oxygen Saturation (84195-8) 94 % 09/29/2025 11:44 PM Oxygen Saturation (72781-4) 95 % 09/30/2025 12:26 PM Oxygen Saturation (40538-0) 93 % 09/30/2025 09:18 PM Oxygen Saturation (45070-1) 96 % 10/01/2025 11:38 AM Oxygen Saturation (40456-0) 97 % 10/01/2025 06:35 PM Oxygen Saturation (45331-8) 98 % 10/02/2025 09:44 AM Temperature (8310-5) 98.8 [degF] Oxygen Saturation (27427-0) 96 % Respiratory Rate (9279-1) 14 /min Heart Rate (8867-4) 74 /min Blood Pressure Systolic (8480-6) 122 mm[Hg] Blood Pressure Diastolic (8462-4) 68 mm[Hg] 10/03/2025 07:48 AM Oxygen Saturation (38065-1) 96 % 10/02/2025 11:45 PM Oxygen Saturation (90491-2) 99 % 10/03/2025 07:45 PM Oxygen Saturation (86410-6) 99 % 10/04/2025 11:09 AM Oxygen Saturation (78190-8) 98 % 10/05/2025 12:25 AM Oxygen Saturation (37005-2) 95 % 10/05/2025 06:52 AM Oxygen Saturation (32998-1) 97 % 10/05/2025 08:30 PM Oxygen Saturation (74186-2) 95 % 10/06/2025 06:42 AM Oxygen Saturation (04751-2) 97 % 10/06/2025 08:30 PM Oxygen Saturation (64666-5) 96 % 10/07/2025 07:55 AM Oxygen Saturation (97570-3) 94 % 10/07/2025 11:36 AM Body Weight (37781-8) 173 [lb_av] Body Mass Index (69565-7) 27.09 kg/m2 10/07/2025 08:12 PM Oxygen Saturation (24348-5) 92 % 10/08/2025 07:20 AM Oxygen Saturation (37821-9) 95 % 10/09/2025 09:35 AM Temperature (8310-5) 98 [degF] Respiratory Rate (9279-1) 16 /min Heart Rate (8867-4) 70 /min Blood Pressure Systolic (8480-6) 128 mm[Hg] Blood Pressure Diastolic (8462-4) 60 mm[Hg] 10/09/2025 09:34 AM Oxygen Saturation (89866-9) 96 % 10/10/2025 06:49 AM Oxygen Saturation (82261-5) 94 % 10/10/2025 07:46 PM Oxygen Saturation (95127-8) 90 % 10/11/2025 07:50 AM Oxygen Saturation (80613-5) 95 % 10/11/2025 09:04 PM Oxygen Saturation (66498-1) 95 % 10/12/2025 08:11 AM Oxygen Saturation (29814-5) 95 % 10/13/2025 08:49 AM Oxygen Saturation (14660-9) 99 % 10/12/2025 10:11 PM Oxygen Saturation (13406-1) 96 % 10/13/2025 11:01 PM Oxygen Saturation (18431-8) 95 % 10/14/2025 12:36 PM Temperature (8310-5) 97.2 [degF] Oxygen Saturation (49950-5) 94 % Respiratory Rate (9279-1) 17 /min Heart Rate (8867-4) 88 /min Blood Pressure Systolic (8480-6) 120 mm[Hg] Blood Pressure Diastolic (8462-4) 87 mm[Hg] 10/14/2025 11:34 AM Oxygen Saturation (25733-0) 99 % 10/15/2025 07:35 AM Oxygen Saturation (82732-1) 96 % 10/15/2025 02:56 PM Temperature (8310-5) 98.2 [degF] Respiratory Rate (9279-1) 16 /min Heart Rate (8867-4) 78 /min Blood Pressure Systolic (8480-6) 128 mm[Hg] Blood Pressure Diastolic (8462-4) 78 mm[Hg] 10/15/2025 07:37 AM Oxygen Saturation (91530-6) 96 % 10/16/2025 12:26 AM Oxygen Saturation (77532-2) 96 % 10/16/2025 12:13 PM Oxygen Saturation (97228-0) 93 % 10/16/2025 12:14 PM Temperature (8310-5) 97.2 [degF] Oxygen Saturation (61609-2) 93 % Respiratory Rate (9279-1) 18 /min Heart Rate (8867-4) 98 /min Blood Pressure Systolic (8480-6) 100 mm[Hg] Blood Pressure Diastolic (8462-4) 60 mm[Hg] 10/17/2025 12:12 AM Oxygen Saturation (12425-6) 94 % 10/17/2025 07:54 AM Oxygen Saturation (33520-9) 90 % 10/17/2025 07:55 AM Temperature (8310-5) 97.4 [degF] Respiratory Rate (9279-1) 20 /min Heart Rate (8867-4) 74 /min Blood Pressure Systolic (8480-6) 120 mm[Hg] Blood Pressure Diastolic (8462-4) 78 mm[Hg] 10/17/2025 11:28 PM Oxygen Saturation (05542-5) 91 % 10/18/2025 07:28 AM Temperature (8310-5) 98.5 [degF] Oxygen Saturation (70532-8) 93 % Respiratory Rate (9279-1) 16 /min Heart Rate (8867-4) 79 /min Blood Pressure Systolic (8480-6) 126 mm[Hg] Blood Pressure Diastolic (8462-4) 70 mm[Hg] 10/18/2025 09:32 PM Oxygen Saturation (24675-4) 95 % 10/19/2025 07:13 AM Temperature (8310-5) 98 [degF] Oxygen Saturation (67148-9) 97 % Respiratory Rate (9279-1) 18 /min Heart Rate (8867-4) 82 /min Blood Pressure Systolic (8480-6) 120 mm[Hg] Blood Pressure Diastolic (8462-4) 68 mm[Hg] 10/20/2025 03:54 AM Oxygen Saturation (52570-6) 95 % 10/20/2025 07:05 AM Temperature (8310-5) 97.6 [degF] Oxygen Saturation (34286-3) 97 % Respiratory Rate (9279-1) 16 /min Heart Rate (8867-4) 74 /min Blood Pressure Systolic (8480-6) 126 mm[Hg] Blood Pressure Diastolic (8462-4) 62 mm[Hg] 10/20/2025 11:43 PM Oxygen Saturation (22253-3) 95 % 10/21/2025 12:11 PM Temperature (8310-5) 97.8 [degF] Oxygen Saturation (66381-2) 94 % Respiratory Rate (9279-1) 20 /min Heart Rate (8867-4) 65 /min Blood Pressure Systolic (8480-6) 131 mm[Hg] Blood Pressure Diastolic (8462-4) 87 mm[Hg] 10/21/2025 07:59 PM Oxygen Saturation (69880-3) 96 % 10/22/2025 07:07 AM Temperature (8310-5) 98.5 [degF] Oxygen Saturation (50984-5) 96 % Respiratory Rate (9279-1) 16 /min Heart Rate (8867-4) 64 /min Blood Pressure Systolic (8480-6) 149 mm[Hg] Blood Pressure Diastolic (8462-4) 75 mm[Hg] 10/23/2025 07:13 AM Temperature (8310-5) 97.6 [degF] Oxygen Saturation (57103-3) 97 % Respiratory Rate (9279-1) 19 /min Heart Rate (8867-4) 75 /min Blood Pressure Systolic (8480-6) 143 mm[Hg] Blood Pressure Diastolic (8462-4) 76 mm[Hg] 10/23/2025 02:27 AM Oxygen Saturation (95975-6) 94 % 10/24/2025 07:05 AM Oxygen Saturation (91263-6) 95 % 10/23/2025 07:46 PM Oxygen Saturation (77914-5) 93 % 10/24/2025 07:07 AM Temperature (8310-5) 97.4 [degF] Respiratory Rate (9279-1) 20 /min Heart Rate (8867-4) 63 /min Blood Pressure Systolic (8480-6) 129 mm[Hg] Blood Pressure Diastolic (8462-4) 64 mm[Hg] 10/24/2025 11:40 PM Oxygen Saturation (24736-1) 93 % 10/25/2025 09:36 AM Temperature (8310-5) 97.8 [degF] Oxygen Saturation (87070-0) 93 % Respiratory Rate (9279-1) 18 /min Heart Rate (8867-4) 88 /min Blood Pressure Systolic (8480-6) 122 mm[Hg] Blood Pressure Diastolic (8462-4) 80 mm[Hg] 10/25/2025 09:18 PM Oxygen Saturation (82827-3) 95 % 10/26/2025 09:08 AM Temperature (8310-5) 97.8 [degF] Oxygen Saturation (01232-9) 91 % Respiratory Rate (9279-1) 20 /min Heart Rate (8867-4) 79 /min Blood Pressure Systolic (8480-6) 151 mm[Hg] Blood Pressure Diastolic (8462-4) 93 mm[Hg] 10/26/2025 09:09 AM Oxygen Saturation (92206-0) 91 % 10/26/2025 09:47 PM Oxygen Saturation (97554-5) 95 % 10/27/2025 09:51 AM Temperature (8310-5) 97.5 [degF] Oxygen Saturation (22219-8) 93 % Respiratory Rate (9279-1) 20 /min Heart Rate (8867-4) 78 /min Blood Pressure Systolic (8480-6) 155 mm[Hg] Blood Pressure Diastolic (8462-4) 93 mm[Hg] 10/27/2025 09:50 AM Oxygen Saturation (37711-9) 93 % 10/27/2025 11:36 PM Oxygen Saturation (27221-4) 95 % 10/28/2025 08:50 AM Oxygen Saturation (38143-7) 96 % 10/28/2025 08:00 AM Temperature (8310-5) 97.4 [degF] Respiratory Rate (9279-1) 20 /min Heart Rate (8867-4) 74 /min Blood Pressure Systolic (8480-6) 114 mm[Hg] Blood Pressure Diastolic (8462-4) 58 mm[Hg] 10/28/2025 08:27 PM Oxygen Saturation (11938-0) 96 % 10/29/2025 08:22 AM Temperature (8310-5) 97.8 [degF] Oxygen Saturation (10319-1) 95 % Respiratory Rate (9279-1) 20 /min Heart Rate (8867-4) 75 /min Blood Pressure Systolic (8480-6) 166 mm[Hg] Blood Pressure Diastolic (8462-4) 84 mm[Hg] 10/29/2025 06:33 PM Oxygen Saturation (26901-2) 95 % 10/30/2025 10:09 AM Temperature (8310-5) 98.1 [degF] Respiratory Rate (9279-1) 13 /min Heart Rate (8867-4) 59 /min Blood Pressure Systolic (8480-6) 114 mm[Hg] Blood Pressure Diastolic (8462-4) 41 mm[Hg] 10/30/2025 10:00 AM Oxygen Saturation (12579-7) 92 % 10/30/2025 06:11 PM Oxygen Saturation (22334-1) 96 % 10/31/2025 07:06 AM Temperature (8310-5) 97.9 [degF] Oxygen Saturation (01524-7) 95 % Respiratory Rate (9279-1) 16 /min Heart Rate (8867-4) 74 /min Blood Pressure Systolic (8480-6) 114 mm[Hg] Blood Pressure Diastolic (8462-4) 75 mm[Hg] 10/31/2025 07:59 PM Oxygen Saturation (98069-1) 96 % 11/01/2025 06:26 AM Temperature (8310-5) 98.2 [degF] Oxygen Saturation (39154-1) 97 % Respiratory Rate (9279-1) 18 /min Heart Rate (8867-4) 79 /min Blood Pressure Systolic (8480-6) 120 mm[Hg] Blood Pressure Diastolic (8462-4) 60 mm[Hg] Social History No smoking Hx information available Encounters Type CPT Code Date Location Provider Indication s encounter report 12/11/2024 11:30 AM WATSON LOPEZ MD encounter report 12/11/2024 11:30 AM Vern Geiger MD Advance Directives Directive Description Verification Date Supporting Document(s) Resuscitation
--- NOTE | 2025-11-01 15:51 | W.ED.FALL ---
Documented by User: BIB Hernandez 11/01/25 18:02 HPI - Fall General: Chief Complaint: Extremity Injury, Lower Stated Complaint: R HIP PAIN, FALL Time Seen by Provider: 11/01/25 15:44 Source: EMS Mode of arrival: EMS Limitations: altered mental status (dementia) History of Present Illness: Patient is an 80-year-old male here from the [facility] dementia unit for evaluation following a fall. Report was that patient had an unwitnessed fall around 4 to 5 AM this morning. They had reportedly done x-rays of his right hip following the fall and they just got official radiology report prior to him coming to the emergency department. There reportedly was questionable fracture which is why they sent him. Details related to the fall are unknown. Unknown how long he was down for. His only complaint to me is right hip pain. Patient cannot tell me his name or date of which is apparently his normal mental baseline. MD complaint: fall Onset (ago): hour(s) Fall from: other (unknown details) Fall witnessed: no Place fall occurred: [facility] Prolonged down time: unclear Symptoms prior to fall: other (unknown) Related Data Home Medications ?Medication ?Instructions ?Recorded ?Confirmed albuterol sulfate 90 mcg/actuation g inhalation 02/18/23 02/18/23 aerosol inhaler donepezil 10 mg tablet tab PO 02/18/23 02/18/23 lisinopril 20 mg tablet tab PO 02/18/23 02/18/23 memantine 10 mg tablet tab PO 02/18/23 02/18/23 pravastatin 40 mg tablet tab PO 02/18/23 02/18/23 Allergies Allergy/AdvReac Type Severity Reaction Status Date / Time cephalexin Allergy ADR-Nausea Verified 02/18/23 10:54 Review of Systems General: Reports: ROS unobtainable due to medical condition (dementia) and ROS unobtainable due to mental status (chronic severe dementia) Physical Exam Const: COMMON NORMALS: no acute distress, average body habitus, no limitations, healthy appearing, alert and well nourished GENERAL APPEARANCE: cooperative ORIENTATION/CONSCIOUSNESS: Yes awake OTHER: chronic baseline dementia HENMT: COMMON NORMALS: normocephalic, atraumatic, TM's normal bilaterally and Normal external nose present HEAD & SCALP: normal to inspection, normocephalic and atraumatic; no Zarate's sign, no hematoma and no raccoon eyes FACE & SINUS: normal facial exam and face symmetric NOSE: Normal external nose present TYMPANIC MEMBRANE: TM's normal bilaterally MOUTH: other (no intraoral injuries noted) Eye: COMMON NORMALS: Equal, round and reactive pupils present and EOMs intact bilaterally GENERAL EYE: appearance normal, both eyes and all related structures and normal light reflex PUPIL: Yes Equal, round and reactive pupils present DIRECT OPHTHALMOSCOPY: Yes normal light reflex Neck/C-Spine: COMMON NORMALS: full ROM GENERAL: Yes normal visual inspection CERVICAL SPINE: Yes cervical ROM normal, No pain with cervical ROM, No Cervical spine tenderness, No step off deformity and No Paracervical muscle tenderness Chest: COMMONS NORMALS: normal inspection of the chest and normal palpation of entire chest wall Resp: COMMON NORMALS: normal respiratory effort and clear to auscultation bilaterally AUSCULTATION: clear to auscultation bilaterally Cardio: COMMON NORMALS: regular rate and regular rhythm RATE: regular rate RHYTHM: regular rhythm GI: COMMON NORMALS: Normal to inspection, nondistended, normoactive bowel sounds present, Soft to palpation, non-tender, No hepatosplenomegaly present and no masses INSPECTION: Yes normal to inspection and No abdominal wall ecchymosis AUSCULTATION: Yes normoactive bowel sounds PALPATION: Yes Soft to palpation and Yes No hepatosplenomegaly present : COMMON NORMALS: Yes no CVA tenderness BLADDER/KIDNEY EXAM: Yes no CVA tenderness Back/Pelvis: COMMON NORMALS: no CVA tenderness, thoracic and lumbar spine normal to inspection, no thoracic nor lumbar tenderness and thoraco-lumbar ROM normal Extremity: COMMON NORMALS: capillary refill normal, no clubbing, cyanosis or edema, no calf tenderness and no pedal edema GENERAL: Yes normal exam except as noted RIGHT LOWER EXTREMITY: Yes hip joint (TTP R hip) Right hip: Yes ROM (any ROM causing discomfort) and Yes neurovascular exam (normal) Neuro: BESS COMA SCALE: document GCS findings Bess coma scale eye opening: Spontaneous Vale coma scale verbal response: Orientated Vale coma scale motor response: Obey commands Vale coma scale total score: 15 COMMON NORMALS: CN's II-XII intact bilaterally, moves all extremities, no focal motor deficits and no sensory deficits noted SENSORIUM/ORIENTATION: Yes alert SPEECH: speech normal GAIT: Yes Normal gait present Skin: COMMON NORMALS: no rashes or lesions noted GENERAL SKIN EXAM: no rashes or lesions noted TRAUMA: no lacerations or abrasions Course Consultations: Consultation #1: Dr. Welch-admit to hospitalist and he will plan on surgery tomorrow Consultation #2: Dr. Thorpe-accepts hospitalization Vital Signs: Vital signs: Vital Signs Temperature 98.2 F 11/02/25 00:00 Pulse Rate 78 11/02/25 00:00 Respiratory Rate 18 11/02/25 05:09 Blood Pressure 168/80 11/02/25 00:00 Pulse Oximetry 94 11/02/25 00:00 Oxygen Delivery Me thod Room Air 11/02/25 00:00 MDM - Fall Medical Decision Making Patient is an 80-year-old male here from the dementia unit at [facility] following a fall this morning. He was found to have a right femoral neck fracture. CT head/cervical spine obtained and negative for acute injury. Blood work overall is nonactionable. Baseline troponin of 34-will trend but have a low suspicion for cardiac event. Wrong pt EKG initially synced to his chart. Miller/UA still pending. Spoke to Dr. Welch who will plan on surgery tomorrow. Spoke to hospitalist Dr. Thorpe for admission. Dr. Lowe aware of patient will place admit orders. Medical Records I reviewed the patient's medical records. Lab Data I reviewed the patient's lab results. 11/02/25 02:42 11/02/25 02:42 Radiology Impressions Cervical Spine CT 11/01/25 15:50 IMPRESSION: Multilevel degenerative changes. No acute abnormality identified. Chest X-Ray 11/01/25 15:50 IMPRESSION: No acute cardiopulmonary abnormality. Head CT 11/01/25 15:50 IMPRESSION: 1. No acute abnormality identified. 2. 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 3. Generalized involutional changes. Hip/Pelvis X-Ray 11/01/25 15:50 IMPRESSION: Right femoral neck fracture with mild displacement and impaction. Laboratory Results WBC 9.80 10^3/uL (3.29-11.43) 11/01/25 16:28 RBC 3.99 10^6/uL (3.85-5.65) 11/01/25 16:28 Hgb 12.50 g/dL (11.27-16.99) 11/01/25 16: Hct 37.5 % (37-53) 11/01/25 16: MCV 94.0 fl (82-101) 11/01/25 16: MCH 31.3 pg (27-33) 11/01/25 16: MCHC 33.3 g/dL (30-55) 11/01/25 16: RDW 14.8 % (12.1-15.1) 11/01/25 16: Plt Count 199 10^3/cmm (157-399) 11/01/25 16: MPV 10.8 fL (7.4-10.4) H 11/01/25 16: Neut % (Auto) 80.7 % 11/01/25 16: Lymph % (Auto) 11.4 % 11/01/25: Dickson % (Auto) 7.3 % 11/01/25: Eos % (Auto) 0.0 % 11/01/25 16: Baso % (Auto) 0.2 % 11/01/25 16: Neut # (Auto) 7.90 10^3/uL (1.8-7.7) H 11/01/25: Lymph # (Auto) 1.1 10^3/uL (0.8-4.8) 11/01/25 16: Dickson # (Auto) 0.7 10^3/uL (0.2-0.9) 11/01/25: Eos # (Auto) 0.0 10^3/uL (0.0-0.8) 11/01/25 16: Baso # (Auto) 0.0 10^3/uL (0.0-0.1) 11/01/25: Nucleated RBC % (auto) 0 % 11/01/25: Nucleated RBCs # 0.0 /100WBC 11/01/25 16: Sodium 137 mmol/L (136-145) 11/01/25 16: Potassium 4.0 mmol/L (3.5-5.1) 11/01/25 16: Chloride 99 mmol/L (98-107) 11/01/25 16:28 Carbon Dioxide 26 mmol/L (22-29) 11/01/25 16:28 Anion Gap 16.0 (5-19) 11/01/25 16:28 BUN 11 mg/dL (8-23) 11/01/25 16:28 Creatinine 0.9 mg/dL (0.7-1.2) 11/01/25 16:28 GFR Calculation Not Reportable 11/01/25 16:28 Glucose 144 mg/dL (65-115) H 11/01/25 16:28 Calculated Osmolality 286 mOsm/kg (285-295) 11/01/25 16:28 Calcium 9.0 mg/dL (8.5-10.5) 11/01/25 16:28 Total Bilirubin 0.5 mg/dL (0.15-1.2) 11/01/25 16:28 AST 19 U/L (0-40) 11/01/25 16:28 ALT 16 U/L (0-41) 11/01/25 16:28 Alkaline Phosphatase 63 U/L (40-130) 11/01/25 16:28 Creatine Kinase 90 U/L (39-308) 11/01/25 16:28 Troponin T Baseline 34 ng/L (0-15) H 11/01/25 16:28 Total Protein 6.4 g/dL (6.6-8.7) L 11/01/25 16:28 Albumin 4.2 g/dL (3.5-5.2) 11/01/25 16:28 Globulin 2.2 g/dL (1.3-4.6) 11/01/25 16:28 TSH 1.34 uIU/mL (0.27-4.20) 11/01/25 16:28 All radiology interpretation(s) finalized by discharge Discharge Plan Discharge Patient Disposition: Admitted As Inpatient Admit Provider: Mohan Thorpe Clinical Impression: Fall, Fracture of femoral neck, right, Dementia Condition: Stable Coding Level of Care Code ED Steel Checker for Chg Fwd Documented by User: Jewell Lowe MD 11/02/25 05:58 HPI - Fall General: Chief Complaint: Extremity Injury, Lower Stated Complaint: R HIP PAIN, FALL Time Seen by Provider: 11/01/25 15:44 Related Data Home Medications ?Medication ?Instructions ?Recorded ?Confirmed albuterol sulfate 90 mcg/actuation g inhalation 02/18/23 02/18/23 aerosol inhaler donepezil 10 mg tablet tab PO 02/18/23 02/18/23 lisinopril 20 mg tablet tab PO 02/18/23 02/18/23 memantine 10 mg tablet tab PO 02/18/23 02/18/23 pravastatin 40 mg tablet tab PO 02/18/23 02/18/23 Allergies Allergy/AdvReac Type Severity Reaction Status Date / Time cephalexin Allergy ADR-Nausea Verified 02/18/23 10:54 Physical Exam Neuro: BESS COMA SCALE: document GCS findings Bess coma scale total score: 15 Course Vital Signs: Vital signs: Vital Signs Temperature 98.2 F 11/02/25 00:00 Pulse Rate 78 11/02/25 00:00 Respiratory Rate 18 11/02/25 05:09 Blood Pressure 168/80 11/02/25 00:00 Pulse Oximetry 94 11/02/25 00:00 Oxygen Delivery Me thod Room Air 11/02/25 00:00 MDM - Fall Medical Decision Making Patient is an 80-year-old male here from the dementia unit at [facility] following a fall this morning. He was found to have a right femoral neck fracture. CT head/cervical spine obtained and negative for acute injury. Blood work overall is nonactionable. Baseline troponin of 34-will trend but have a low suspicion for cardiac event. Wrong pt EKG initially synced to his chart. Miller/UA still pending. Spoke to Dr. Welch who will plan on surgery tomorrow. Spoke to hospitalist Dr. Thorpe for admission. Dr. Lowe aware of patient will place admit orders. Saw patient with above midlevel agree with her history and physical patient does have a right hip fracture spoke with the hospitalist along with orthopedist and will admit Lab Data 11/02/25 02:42 11/02/25 02:42 Radiology Impressions Cervical Spine CT 11/01/25 15:50 IMPRESSION: Multilevel degenerative changes. No acute abnormality identified. Chest X-Ray 11/01/25 15:50 IMPRESSION: No acute cardiopulmonary abnormality. Head CT 11/01/25 15:50 IMPRESSION: 1. No acute abnormality identified. 2. 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 3. Generalized involutional changes. Hip/Pelvis X-Ray 11/01/25 15:50 IMPRESSION: Right femoral neck fracture with mild displacement and impaction. Laboratory Results WBC 9.80 10^3/uL (3.29-11.43) 11/01/25 16:28 RBC 3.99 10^6/uL (3.85-5.65) 11/01/25 16:28 Hgb 12.50 g/dL (11.27-16.99) 11/01/25 16: Hct 37.5 % (37-53) 11/01/25 16: MCV 94.0 fl (82-101) 11/01/25 16: MCH 31.3 pg (27-33) 11/01/25 16: MCHC 33.3 g/dL (30-55) 11/01/25 16:28 RDW 14.8 % (12.1-15.1) 11/01/25 16: Plt Count 199 10^3/cmm (157-399) 11/01/25 16: MPV 10.8 fL (7.4-10.4) H 11/01/25 16: Neut % (Auto) 80.7 % 11/01/25 16: Lymph % (Auto) 11.4 % 11/01/25 16: Dickson % (Auto) 7.3 % 11/01/25 16: Eos % (Auto) 0.0 % 11/01/25 16: Baso % (Auto) 0.2 % 11/01/25 16: Neut # (Auto) 7.90 10^3/uL (1.8-7.7) H 11/01/25 16: Lymph # (Auto) 1.1 10^3/uL (0.8-4.8) 11/01/25 16:28 Dickson # (Auto) 0.7 10^3/uL (0.2-0.9) 11/01/25 16:28 Eos # (Auto) 0.0 10^3/uL (0.0-0.8) 11/01/25 16:28 Baso # (Auto) 0.0 10^3/uL (0.0-0.1) 11/01/25 16:28 Nucleated RBC % (auto) 0 % 11/01/25 16:28 Nucleated RBCs # 0.0 /100WBC 11/01/25 16:28 Sodium 137 mmol/L (136-145) 11/01/25 16:28 Potassium 4.0 mmol/L (3.5-5.1) 11/01/25 16:28 Chloride 99 mmol/L (98-107) 11/01/25 16:28 Carbon Dioxide 26 mmol/L (22-29) 11/01/25 16:28 Anion Gap 16.0 (5-19) 11/01/25 16:28 BUN 11 mg/dL (8-23) 11/01/25 16:28 Creatinine 0.9 mg/dL (0.7-1.2) 11/01/25 16:28 GFR Calculation Not Reportable 11/01/25 16:28 Glucose 144 mg/dL (65-115) H 11/01/25 16:28 Calculated Osmolality 286 mOsm/kg (285-295) 11/01/25 16:28 Calcium 9.0 mg/dL (8.5-10.5) 11/01/25 16:28 Total Bilirubin 0.5 mg/dL (0.15-1.2) 11/01/25 16:28 AST 19 U/L (0-40) 11/01/25 16:28 ALT 16 U/L (0-41) 11/01/25 16:28 Alkaline Phosphatase 63 U/L (40-130) 11/01/25 16:28 Creatine Kinase 90 U/L (39-308) 11/01/25 16:28 Troponin T Baseline 34 ng/L (0-15) H 11/01/25 16:28 Total Protein 6.4 g/dL (6.6-8.7) L 11/01/25 16:28 Albumin 4.2 g/dL (3.5-5.2) 11/01/25 16:28 Globulin 2.2 g/dL (1.3-4.6) 11/01/25 16:28 TSH 1.34 uIU/mL (0.27-4.20) 11/01/25 16:28 Discharge Plan Discharge Patient Disposition: Admitted As Inpatient Admit Provider: Mohan Thorpe Clinical Impression: Fall, Fracture of femoral neck, right, Dementia Condition: Stable Coding Level of Care Code ED Steel Checker for Keysha Mendez
--- OUTSIDE RECORDS SUMMARY | 2025-11-01 15:51 | XMS_ITS | Continuity of Care Document ---
Author Organization [facility] Doroteo Fowler, [facility] ([facility]) Address [address] [place] [address] Care Team Providers Care Global Regulatory Lead Name Role Phone MICHELLE LIM Primary Care Provider Unavailabl e Assessment Encounter Date Assessment Date Assessment LastModified by Organization Details LastModified Time 10/15/2025 10/15/2025 I have reviewed the resident's vital signs, current labs, current meds, and plan of care and recommend no changes at this time. 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 5 12:52:12 Essentia l hyperten xochitl 55112274 Active 2022 DILMA CARMONA [facility], [facility] 5 16:16:21 Esophage al dysphagi a 09041329 Active 2023 DILMA CARMONA [facility], [facility] 5 16:16:16 Chronic obstruct letha pulmonar y disease 32210788 Active 2023 DILMA CARMONA [facility], [facility] 5 16:16:06 Hallucin ations 9832331 Completed 202301/02/2025 DILMA CARMONA [facility] 5 16:16:30 Vascular dementia with behavior al disturba [facility] [id number] 9104 Active 2024 EPHRAIM VIDAL [facility] 5 12:52:08 Anxiety disorder 172415517 Active 2024 EPHRAIM VIDAL [facility] 5 12:51:47 Problem Notes None recorded. Medical Equipment None Reported. Allergies Allergen ID Allergen Name Allergen Category Reaction Reaction Severity Criticality Documentation Date Start Date Code Code System Note Provider Name and Address Organization Details Recorded Time 2253 Augmentin medicatio n Not available Not available Not available 03/03/2023 56758 2 RxNorm JOSE DAVE [facility] 3 12:24:35 58997 cephalexi n medicatio n Not available Not available Not available 04/16/2025 2231 Rx[facility] 12:48:36 Medications Name Sig Start Date [...] Organization Details Last Updated DateTime 167.64 cm 27.9 kg/m2 78309.4 8 g 94 % 70 /min 16 /min 98 [degF] 128/60 mm[Hg] EPHRAIM VIDAL [facility] 10:17:31 Social History Question Answer Notes LastModified by Organizat ion Details LastModified Time Tobacco Smoking Status Never Smoker VICKI pretty [facility] 04/22/2023 13:48:16 What Was The Date Of Your Most Recent Tobacco Screening? 04/16/2025 [email or web address] Information not available 04/16/2025 Sex: Unknown Functional Status Question Answer Note LastModified by Organization D etails LastModified Time Do you or have you ever used any other forms of tobacco or nicotine? No [email or web address] Information not available 04/16/2025 What is your level of alcohol consumption? None [email or web address] Information not available 04/22/2023 Do you or have you ever used any nicotine-free cigarettes, vape, or chewing tobacco? No [email or web address] Information not available 04/16/2025 Mental Status None recorded. Family History Nothing Reported. Medical History No medical history recorded. Immunizations Vaccine Type Date Status Note Provider Nam e and Address Organization Details Recorded Time Influenza, split virus, trivalent, preservative 2 completed Not Available [facility] 06/04/2023 02:43:47 Influenza, split virus, trivalent, preservative 1 completed Not Available [facility] 06/04/2023 02:43:47 pneumococcal polysaccharide PPV23 2 completed Not Available [facility] 06/04/2023 02:43:47 pneumococcal polysaccharide PPV23 7 completed EPHRAIM pretty [facility] 04/16/2025 12:48:19 Influenza, split virus, trivalent, preservative 4 completed Not Available [facility] 06/04/2023 02:43:47 Influenza, high-dose, trivalent, PF 5 completed Not Available [facility] 10/15/2025 08:16:12 COVID-19, mRNA, LNP-S, PF, 30 mcg/0.3 mL dose 1 completed Not Available [facility] 10/15/2025 08:16:12 COVID-19, mRNA, LNP-S, PF, 30 mcg/0.3 mL dose 1 completed Not Available [facility] 10/15/2025 08:16:12 COVID-19, mRNA, LNP-S, PF, 30 mcg/0.3 mL dose 1 completed Not Available [facility] 10/15/2025 08:16:12 COVID-19, mRNA, LNP-S, PF, 30 mcg/0.3 mL dose 2 completed Not Available [facility] 10/15/2025 08:16:12 zoster recombinant 2 completed Not Available [facility] 10/15/2025 08:16:12 Tdap 2 completed Not Available [facility] 10/15/2025 08:16:12 Influenza, high-dose, quadrivalent, PF 2 completed Not Available [facility] 10/15/2025 08:16:12 COVID-19, mRNA, LNP-S, bivalent, PF, 30 mcg/0.3 mL dose 2 completed Not Available [facility] 10/15/2025 08:16:12 zoster recombinant 2 completed Not Available [facility] 10/15/2025 08:16:12 COVID-19, mRNA, LNP-S, PF, 50 mcg/0.5 mL 3 completed Not Available [facility] 10/15/2025 08:16:12 Influenza, high-dose, quadrivalent, PF 3 completed Not Available [facility] 10/15/2025 08:16:12 COVID-19, mRNA, LNP-S, PF, 50 mcg/0.5 mL 4 completed Not Available [facility] 10/15/2025 08:16:12 COVID-19, mRNA, LNP-S, PF, 50 mcg/0.5 mL 4 completed Not Available [facility] 10/15/2025 08:16:12 Influenza, high-dose, quadrivalent, PF 1 completed EPHRAIM VIDAL null, [facility] 04/16/2025 12:48:19 Pneumococcal conjugate PCV 13 6 completed EPHRAIM VIDAL null, [facility] 04/16/2025 12:48:20 Influenza, high-dose, trivalent, PF 9 completed EPHRAIM VIDAL null, [facility] 04/16/2025 12:48:20 Influenza, high-dose, trivalent, PF 6 completed EPHRAIM VIDAL null, [facility] 04/16/2025 12:48:20 Influenza, high-dose, trivalent, PF 7 completed EPHRAIM VIDAL null, [facility] 04/16/2025 12:48:20 Influenza, high-dose, trivalent, PF 8 completed EPHRAIM VIDAL null, [facility] 04/16/2025 12:48:20 COVID-19, mRNA, LNP-S, PF, 50 mcg/0.5 mL 5 completed [facility]15/[facility] 08:16:12 Past Encounters Encounter ID Performer Location Encounter Start Date Encounter Closed Date Diagnosis/Indication Diagnosis SNOMED-CT Code Diagnosis ICD10 Code Diagnosis IMO Codes Diagnosis Note [id number] BERNADETTE GEIGER PA-C [facility] ([facility]) [address] [place] [address] [id number] 09/18/2025 12:41:20 10/15/2025 17:19:29 Vascular dementia 564043536 F01.B4 [id number] ativan .5mg1 po qd prn x 30 days prn monitor usage and if consistant will continue if he is not using then we will dcHe is already on aracept and namenda and SSRI and trazadone. [id number] Jaxon Geiger MD [facility] ([facility]) [address] [place] [address] [id number] 10/15/2025 08:16:00 10/16/2025 12:17:18 Vascular dementia with behavioral disturbance [id number] 17757 F01.518 Health Concerns Section Related Observation LastModified by Organization Detai ls LastModified Time None Recorded Concern Status LastModified by Organization Details LastModified Time None Recorded Payers Encounter Date Sequence Insurance Name Policy Number Policy Ortiz Covered Member ID Ortiz Member ID Guarantor Name 10/15/2025 1 [place]/A DVANTAGE - PPO) [id number] Dong Jackson [id number] Dong Jackson Notes Date Note Type Note Provider Name and Address Organization Details Recorded Time 10/15/2025 text/html Hypertension IM/FMReported by PatientHPIFor quality, patient reportshere for check-up. For severity, patient reportsmild. For onset/timing, patient reportsgradual onset. For alleviating factors, patient reportsmedication. For associated symptoms, patient reportsno shortness of breathandno palpitations. DementiaReported by Patientunchanged and without sign of progression since last visit per staff he is pleasantly confused Patient seen today by Dr. Geiger at [facility] Jaxon Geiger MD [facility] [place], [address], [facility] [place] [facility] 10/15/2025 16:27:10
[2025-11-01 16:41] LABS: Hematocrit 37.5 % (37-53); Hemoglobin 12.50 g/dL (11.27-16.99); Mean Corpuscular HGB Conc 33.3 g/dL (30-55); Mean Corpuscular Hemoglobin 31.3 pg (27-33); Mean Corpuscular Volume 94.0 fl (82-101); Nucleated Red Blood Cells % 0 %; Platelet Count 199 10^3/cmm (157-399); Red Blood Count 3.99 10^6/uL (3.85-5.65); White Blood Count 9.80 10^3/uL (3.29-11.43)
--- NOTE | 2025-11-01 16:50 | ECG_ITS ---
[facility] Test Date: 2025-11-01 Pat Name: Dong Jackson Department: Room: Gender: Male Conventions Assistant: : 1945 Requested By: Svetlana Ruiz Order Number: [id number] Wilder MD: CONCEPCIÓN HOWELL Measurements Intervals [place] Rate: 59 P: 42 FL: 188 QRS: 64 QRSD: 101 T: 70 QT: 438 QTc: 437 Interpretive Statements SINUS BRADYCARDIA Compared to ECG 01/22/2024 16:11:52 Sinus rhythm no longer present Electronically Signed On 11-03-2025 23:21:46 B[employer]OP MECHANIC by CONCEPCIÓN HOWELL [email or web address]/store/[id number]
[2025-11-01 16:53] LABS: Troponin(5th) Baseline 34 ng/L (0-15)
[2025-11-01 16:56] LABS: Alanine Aminotransferase 16 U/L (0-41); Albumin Level 4.2 g/dL (3.5-5.2); Alkaline Phosphatase 63 U/L (40-130); Anion Gap 16.0 (5-19); Aspartate Amino Transferase 19 U/L (0-40); Blood Urea Nitrogen 11 mg/dL (8-23); Calcium 9.0 mg/dL (8.5-10.5); Carbon Dioxide 26 mmol/L (22-29); Chloride 99 mmol/L (98-107); Globulin 2.2 g/dL (1.3-4.6); Glucose 144 mg/dL (65-115); Osmolality Calculated 286 mOsm/kg (285-295); Potassium 4.0 mmol/L (3.5-5.1); Sodium 137 mmol/L (136-145); Total Protein 6.4 g/dL (6.6-8.7)
[2025-11-01 18:34] VITALS: BP 154/106; PULSE 63; O2SAT 92
[2025-11-01 18:37] VITALS: BP 165/82; PULSE 64; O2SAT 91
[2025-11-01 18:43] LABS: Glucose Urine UA Negative (Normal); Nitrate Urine Negative (Negative); Specific Gravity, Urine 1.021 (1.005-1.030)
[2025-11-01 18:45] LABS: Add Urine Microscopic? YES
[2025-11-01 19:22] LABS: Thyroid Stimulating Hormone 1.34 uIU/mL (0.27-4.20)
[2025-11-01 20:00] VITALS: BP 168/77; PULSE 74; RESP 18; TEMP 36.8; O2SAT 92
--- NOTE | 2025-11-01 20:34 | P.HP_ITS ---
Providers/Chief Complaint 2 Admitting Physician: Harry John MD Primary Care Provider: Anish Lim MD Chief Complaint: R HIP PAIN, FALL History of Present Illness As per the retrospective notes review, and the patient's send the patient is having mild to moderate cognitive impairment and does not recall much of his events and [facility] Dong Jackson is a 80 year old male with past medical history of cognitive impairment, hypertension [facility] as per the after a fall. He was having right hip pain. In the ER found to have right hip fracture.Discussed with orthopedic on-call, for intervention tomorrow. As per the , the patient did not have such falls, he did not report any chest pain, chest pressure, diarrhea, nausea or vomiting, abdominal pain, dizziness, syncope or any presyncope. Rest of the review of system is unremarkable Review of Systems 2 General: Reports: 10 or more systems reviewed and unremarkable except in HPI and below Medications/Allergies Home Medications ?Medication ?Instructions ?Recorded ?Confirmed ?Last Taken ?Type albuterol sulfate 90 mcg/actuation g inhalation 02/18/23 Unknown History aerosol inhaler donepezil 10 mg tablet tab PO 02/18/23 02/18/23 Unk nown History lisinopril 20 mg tablet tab PO 02/18/23 02/18/23 Unk nown History memantine 10 mg tablet tab PO 02/18/23 02/18/23 Unk nown History pravastatin 40 mg tablet tab PO 02/18/23 02/18/23 Unk nown History Allergies Allergy/AdvReac Type Severity Reaction Status Date / Time cephalexin Allergy ADR-Nausea Verified 02/18/23 10:54 Vitals/I&O/Wt Last Vital Signs Temp 97.6 F 11/01/25 15:44 Pulse 64 11/01/25 18:37 Resp 16 11/01/25 15:44 BP 165/82 11/01/25 18:37 Pulse Ox 91 11/01/25 18:37 O2 Del Method Room Air 11/01/25 18:45 11/01/25 11/01/25 11/01/25 06:59 14:59 22:59 Intake Total 0 / 0 Balance 0 / 0 Weight last 48 hrs Weight 81.284 kg Physical Exam 2 Narrative: General: Alert and oriented to person only, lying comfortably without any distress HEENT: Normocephalic, atraumatic, grossly unremarkable exam Cardio: normal rate rhythm, normal S1-S2 without any murmurs, rubs, or gallops and JVD normal Respiratory: normal vascular breathing on auscultation without any wheezes, stridor, rhonchi GI: Abdomen soft, nontender, nondistended, normoactive bowel sounds present all 4 quadrants, Neuro: Grossly unremarkable neurological exam with intact motor and sensory function Behavior: Appropriate and cooperative Extremities: Adequate palpable pulses, mild trace edema, on Miller's catheter Urinary Catheter Management: Miller: Cath Placed During This Visit: yes Reason for Continuing Indwelling Catheter: Perioperative Use in Selected Surgeries Urinary Catheter Date of Insertion: 11/01/25 Urinary Catheter Time of Insertion: 18:36 Data 11/01/25 16:28 11/01/25 16:28 A&P Assessment and plan 1. Closed fracture of neck of right femur, initial encounter: Status post fall leading to right femoral neck fracture Ortho on board, for surgical intervention tomorrow N.p.o. from midnight, patient is not on any blood thinners Hold anticoagulation Continue adequate hydration Monitor vitals Monitor and correct electrolytes 2. Severe dementia without behavioral disturbance, psychotic disturbance, mood disturbance, or anxiety, unspecified dementia type: Resume home medication donepezil and memantine after reconciliation 3. Fall, initial encounter: OT PT therapy 4. Primary hypertension: Resume home medications lisinopril 20 mg after reconciliation 5. Hyperlipidemia: Continue home dose statins after reconciliation and confirmation Plan: Resume rest of the home medication Of note: The patient is DNR as per the DPOA who is the , however for the sake of surgical intervention to keep the patient full code and later after surgery to change the CODE STATUS to DNR as per the . PDMP PDMP Reviewed: Not Reviewed Attestations 2 Medical Necessity Statement*: Patient will stay over 2 midnights due to right hip fracture requiring surgical intervention, and later on OT PT therapy with further anticipation of placement to SNF? Time Spent in Patient Care: 16 - 35 minutes (>than 50% of time sp ent in counselling and/or direct pt care on unit) . Other Attestations: Patient condition has been discussed at length with the patient/family, I have independently reviewed the chart labs imaging/diagnostics/EKG. the goals of care and code status with the patient/family/NOK/legal account executive sales representative, and documented accordingly. I have reconciled the medications after confirmation/comorbidities/current clinical condition. The management has been done according to the current clinical condition with respect to patient goals of care and based on recommendations/guidelines. The patient/family has been informed about the current condition and further plan of care. Agreed with the plan of care and understood without any language barrier. Every effort was made to ensure accuracy of casualty claims supervisor. Any obvious errors or omissions should be clarified with the author of the document. Coding Level of Care Code 27353 Diagnoses Closed fracture of neck of right femur, initial encounter S72.001A Encounter type: initial encounter Fracture type: closed Severe dementia without behavioral disturbance, psychotic disturbance, mood disturbance, or anxiety, unspecified dementia type F03.C0 Dementia type: unspecified type Dementia severity: severe Dementia behavioral or psychological symptom: without behavioral, psychotic, or mood disturbance or anxiety Fall, initial encounter W19.XXXA Encounter type: initial encounter Primary hypertension I10 Hyperlipidemia E78.5
[2025-11-01] MEDS: pantoprazole 40 mg SDV IVP (21:26)
--- NOTE | 2025-11-01 21:50 | ECG_ITS ---
[employer] Test Date: 2025-11-01 Pat Name: Dong Jackson Department: Room: 263 Gender: Male Calibration Laboratory Technician: : 1945 Requested By: Svetlana Ruiz Order Number: [id number] Wilder MD: CONCEPCIÓN HOWELL Measurements Intervals [place] Rate: 65 P: 185 PA: 148 QRS: 211 QRSD: 124 T: 16 QT: 497 QTc: 520 Interpretive Statements SINUS RHYTHM WITH OCCASIONAL VENTRICULAR PREMATURE COMPLEXES ARM LEADS REVERSED [INVERTED P AND QRS IN I] DEXTROCARDIA [INVERTED P AND QRS IN V6] ST ELEVATION, CONSIDER ANTERIOR INJURY [MARKED ST ELEVATION W/O NORMALLY INFLECTED T-WAVE IN V2-V5] ACUTE GA Compared to ECG 11/01/2025 17:07:44 Ventricular premature complex(es) now present ST (T wave) deviation now present Myocardial infarct finding now present Sinus bradycardia no longer present Electronically Signed On 11-03-2025 23:21:22 EQUIPMENT VALIDATION SPECIALIST by CONCEPCIÓN HOWELL [email or web address]
[2025-11-01 23:35] LABS: Troponin 5 6HR 40.59 ng/L (0-15); Troponin 5 6HR Delta 6.59 ng/L (0-12)
[2025-11-02] VITALS (21 sets, daily range): BP systolic 99–168; BP diastolic 64–89; PULSE 65–150; RESP 16–18; TEMP 36.4–37.2; O2SAT 91–99; BMI 25.7
[2025-11-02 03:32] LABS: Hematocrit 38.7 % (37-53); Hemoglobin 12.70 g/dL (11.27-16.99); Mean Corpuscular HGB Conc 32.8 g/dL (30-55); Mean Corpuscular Hemoglobin 30.8 pg (27-33); Mean Corpuscular Volume 93.7 fl (82-101); Nucleated Red Blood Cells % 0 %; Platelet Count 208 10^3/cmm (157-399); Red Blood Count 4.13 10^6/uL (3.85-5.65); White Blood Count 11.47 10^3/uL (3.29-11.43)
[2025-11-02 03:49] LABS: Alanine Aminotransferase 16 U/L (0-41); Albumin Level 3.9 g/dL (3.5-5.2); Alkaline Phosphatase 60 U/L (40-130); Anion Gap 13.9 (5-19); Aspartate Amino Transferase 19 U/L (0-40); Blood Urea Nitrogen 12 mg/dL (8-23); Calcium 9.2 mg/dL (8.5-10.5); Carbon Dioxide 27 mmol/L (22-29); Chloride 99 mmol/L (98-107); Globulin 2.9 g/dL (1.3-4.6); Glucose 129 mg/dL (65-115); Osmolality Calculated 283 mOsm/kg (285-295); Potassium 3.9 mmol/L (3.5-5.1); Sodium 136 mmol/L (136-145); Total Protein 6.8 g/dL (6.6-8.7)
[2025-11-02] MEDS: ATORVASTATIN 20 MG TABLET PO (04:20)
[2025-11-02] MEDS: oxyCODONE 5 mg IR Tab/Cap PO ×2 (05:09→13:04)
--- NOTE | 2025-11-02 08:56 | PC.NURSE ---
to surgery pt went down to surgery
--- NOTE | 2025-11-02 09:27 | ANES.PREANE2 ---
Pre-Anesthetic Assessment Height/Weight: Height 1.75 m Weight 79.197 kg Temp Pulse Resp BP Pulse Ox O2 Del Method 98.5 F 65 18 126/70 92 Room Air 11/02/25 09:03 11/02/25 09:03 11/02/25 09:03 11/02/25 09:03 11/02/25 09:03 11/02/25 09:03 Operation Date: 11/02/25 10:35 Proposed Procedures p Hemiarthroplasty Hip(Right) - Josse H Rebekah, DO Familial anesthetic complications: none Was Beta Vasiliy taken within 24 hours: N/A Was Clonidine taken within 24 hours: N/A Last intake: > 8 hrs Social No alcohol and No tobacco Exam alert, oriented x 3, clear to auscultation bilaterally and regular rate & rhythm Airway Mallampati: Class II Dentition: false CV/HEM Hypertension Metabolic Hyperlipidemia Neuropsych Dementia Anesthetic Plan ASA status: 3 Anesthesia: General Risk of > 500 ml blood loss (7ml/kg in children): No Medications/Allergies Home Medications ?Medication ?Instructions ?Recorded ?Confirmed ?Last Taken ?Type albuterol sulfate 90 mcg/actuation g inhalation 02/18/23 02/18/23 Unknown History aerosol inhaler donepezil 10 mg tablet tab PO 02/18/23 02/18/23 Unknown History lisinopril 20 mg tablet tab PO 02/18/23 02/18/23 Unknown History memantine 10 mg tablet tab PO 02/18/23 02/18/23 Unknown History pravastatin 40 mg tablet tab PO 02/18/23 02/18/23 Unknown History Allergies Allergy/AdvReac Type Severity Reaction Status Date / Time cephalexin Allergy ADR-Nausea Verified 02/18/23 10:54 Current Medications Generic Name Dose Route Start Last Admin Trade Name Freq PRN Reason Stop Dose Admin Atorvastatin Calcium 20 mg 11/02/25 05:00 11/02/25 04:20 Atorvastatin 20 Mg Tablet PO 20 mg On Hold: 11/02/25 09:01 DAILY JAMI Administration Comment: Order held by Process Transfer Donepezil HCl 10 mg 11/02/25 05:00 11/02/25 04:20 Donepezil 5 Mg Tablet PO 10 mg On Hold: 11/02/25 09:01 DAILY JAMI Administration Comment: Order held by Process Transfer Lactated Ringer's 1,000 mls @ 75 mls/hr 11/01/25 18:45 11/01/25 21:27 Lactated Ringers IV 75 mls/hr On Hold: 11/02/25 09:01 .[id number] JAMI Administration Comment: Order held by Process Transfer Sodium Chloride 1,000 mls @ 30 mls/hr 11/02/25 09:15 11/02/25 09:05 Sodium Chloride 0.9% IV 11/03/25 09:14 30 mls/hr .Q24H JAMI Administration Lisinopril 20 mg 11/01/25 20:45 11/02/25 04:21 Lisinopril 20 Mg Tablet PO 20 mg On Hold: 11/02/25 09:01 DAILY JAMI Administration Comment: Order held by Process Transfer Memantine 10 mg 11/02/25 05:00 11/02/25 04:20 Memantine 5 Mg Tablet PO 10 mg On Hold: 11/02/25 09:01 DAILY JAMI Administration Comment: Order held by Process Transfer Oxycodone HCl 5 mg 11/01/25 18:41 11/02/25 05:09 Oxycodone 5 Mg Ir Tab/Cap PO 5 mg On Hold: 11/02/25 09:01 Q6H PRN Administration Comment: Order held by Process SEVERE PAIN Transfer Pantoprazole Sodium 40 mg 11/01/25 18:45 11/01/25 21:26 Pantoprazole 40 Mg Sdv IVP 40 mg On Hold: 11/02/25 09:01 Q24H JAMI Administration Comment: Order held by Process Transfer Senna 17.2 mg 11/01/25 21:00 11/01/25 21:26 Sennosides 8.6 Mg Tablet PO 17.2 mg On Hold: 11/02/25 09:01 BEDTIME JAMI Administration Comment: Order held by Process Transfer Data Anesthesia 11/02/25 02:42 11/02/25 02:42 Short CBC 11/01/25 11/02/25 Range/Units 16:28 02:42 WBC 9.80 11.47 H (3.29-11.43) 10^3/uL Hgb 12.50 12.70 (11.27-16.99) g/dL Hct 37.5 38.7 (37-53) % MCV 94.0 93.7 (82-101) fl Plt Count 199 208 (157-399) 10^3/cmm Neut % (Auto) 80.7 72.6 % Neut # (Auto) 7.90 H 8.33 H (1.8-7.7) 10^3/uL BMP 11/01/25 11/02/25 16:28 02:42 Sodium 137 136 Potassium 4.0 3.9 Chloride 99 99 Carbon Dioxide 26 27 BUN 11 12 Creatinine 0.9 0.8 Glucose 144 H 129 H Calcium 9.0 9.2 Cardiac Enzymes 11/01/25 11/01/25 11/01/25 Range/Units 16:28 18:11 22:47 Creatine Kinase 90 (39-308) U/L Troponin T Baseline 34 H (0-15) ng/L Delta Troponin T 2.98 (0-10) ABS# Troponin T Hi Sens 6Hr 40.59 H (0-15) ng/L Troponin T Hi Sens 6Hr Delta 6.59 (0-12) ng/L Liver Function 11/01/25 11/02/25 Range/Units 16:28 02:42 Total Bilirubin 0.5 0.6 (0.15-1.2) mg/dL AST 19 19 (0-40) U/L ALT 16 16 (0-41) U/L Alkaline Phosphatase 63 60 (40-130) U/L Albumin 4.2 3.9 (3.5-5.2) g/dL Urine 11/01/25 Range/Units 18:33 Urine Color Yellow (Yellow) Urine Appearance Cloudy A (CLEAR) Urine pH 7.0 (5-7) Ur Specific [place] 1.021 (1.005-1.030) Urine Protein Trace A (Negative) Urine Glucose (UA) Negative (Normal) Urine Ketones 2+ H (Negative) Urine Nitrate Negative (Negative) Urine Bilirubin Negative (Negative) Ur Leukocyte Esterase Negative (Negative) Urine RBC 3-5 (0-2) /hpf Urine WBC 0-5 (0-5) /hpf
--- NOTE | 2025-11-02 09:31 | P.CONIM_ITS ---
Providers/Reason For Consult 2 Consulting Physician/Specialty*: Hospitalist Reason for Consult*: Right hip fracture Attending Physician: Harry John MD Primary Care Provider: Anish Lim MD History of Present Illness History of Present Illness Dong Jackson is a 80 year old male presented from [facility] as per the after a fall. He was having right hip pain. In the ER found to have right hip fracture. Patient's is at the bedside. Patient is able point the right hip hurts. Does not radiate. Review of Systems 2 General: Reports: 10 or more systems reviewed and unremarkable except in HPI and below Const: Denies: fever(s) or chills Card: Denies: chest pain or palpitations Resp: Denies: productive cough GI: Denies: abdominal pain, nausea or vomiting : Denies: flank pain Musc: Reports: extremity swelling, joint pain, joint stiffness, limited range of motion and deformity Skin/Breast: Reports: nail changes and change in hair; Denies: rash or sores Neuro: Reports: numbness in extremities, sensory changes and difficulty walking Psych: Denies: suicidal ideation Darrion/Lymph: Denies: easy bruising Medications/Allergies Home Medications ?Medication ?Instructions ?Recorded ?Confirmed ?Last Taken ?Type albuterol sulfate 90 mcg/actuation g inhalation 02/18/23 Unknown History aerosol inhaler donepezil 10 mg tablet tab PO 02/18/23 02/18/23 Unk nown History lisinopril 20 mg tablet tab PO 02/18/23 02/18/23 Unk nown History memantine 10 mg tablet tab PO 02/18/23 02/18/23 Unk nown History pravastatin 40 mg tablet tab PO 02/18/23 02/18/23 Unk nown History Allergies Allergy/AdvReac Type Severity Reaction Status Date / Time cephalexin Allergy ADR-Nausea Verified 02/18/23 10:54 Current Medications Generic Name Dose Route Start Last Admin Trade Name Freq PRN Reason Stop Dose Admin Atorvastatin Calcium 20 mg 11/02/25 05:00 11/02/25 04:20 Atorvastatin 20 Mg Tablet PO 20 mg On Hold: 11/02/25 09:01 DAILY JAMI Administration Comment: Order held by Process Transfer Donepezil HCl 10 mg 11/02/25 05:00 11/02/25 04:20 Donepezil 5 Mg Tablet PO 10 mg On Hold: 11/02/25 09:01 DAILY JAMI Administration Comment: Order held by Process Transfer Lactated Ringer's 1,000 mls @ 75 mls/hr 11/01/25 18:45 11/01/25 21:27 Lactated Ringers IV 75 mls/hr On Hold: 11/02/25 09:01 .[id number] JAMI Administration Comment: Order held by Process Transfer Sodium Chloride 1,000 mls @ 30 mls/hr 11/02/25 09:15 11/02/25 09:05 Sodium Chloride 0.9% IV 11/03/25 09:14 30 mls/hr .Q24H JAMI Administration Lisinopril 20 mg 11/01/25 20:45 11/02/25 04:21 Lisinopril 20 Mg Tablet PO 20 mg On Hold: 11/02/25 09:01 DAILY JAMI Administration Comment: Order held by Process Transfer Memantine 10 mg 11/02/25 05:00 11/02/25 04:20 Memantine 5 Mg Tablet PO 10 mg On Hold: 11/02/25 09:01 DAILY JAMI Administration Comment: Order held by Process Transfer Oxycodone HCl 5 mg 11/01/25 18:41 11/02/25 05:09 Oxycodone 5 Mg Ir Tab/Cap PO 5 mg On Hold: 11/02/25 09:01 Q6H PRN Administration Comment: Order held by Process SEVERE PAIN Transfer Pantoprazole Sodium 40 mg 11/01/25 18:45 11/01/25 21:26 Pantoprazole 40 Mg Sdv IVP 40 mg On Hold: 11/02/25 09:01 Q24H JAMI Administration Comment: Order held by Process Transfer Senna 17.2 mg 11/01/25 21:00 11/01/25 21:26 Sennosides 8.6 Mg Tablet PO 17.2 mg On Hold: 11/02/25 09:01 BEDTIME JAMI Administration Comment: Order held by Process Transfer Vitals/I&O/Wt Last Vital Signs Temp 98.5 F 11/02/25 09:03 Pulse 65 11/02/25 09:03 Resp 18 11/02/25 09:03 BP 126/70 11/02/25 09:03 Pulse Ox 92 11/02/25 09:03 O2 Del Method Room Air 11/02/25 09:03 11/01/25 11/02/25 11/02/25 22:59 06:59 14:59 Intake Total 0 / 0 Output Total 350 / 350 375 / 725 Balance -350 / -350 -375 / -725 Weight last 48 hrs Weight 174 lb 9.6 oz Weight 179 lb 3.2 oz Physical Exam 2 Narrative: Patient's right leg shortened and externally rotated otherwise neurovasc intact in all extremities. Urinary Catheter Management: Miller: Cath Placed During This Visit: yes Reason for Continuing Indwelling Catheter: Perioperative Use in Selected Surgeries Urinary Catheter Date of Insertion: 11/01/25 Urinary Catheter Time of Insertion: 18:36 Data 11/02/25 02:42 11/02/25 02:42 A&P Assessment and plan 1. Fracture of femoral neck, right: Plan to do right hip hemiarthroplasty today PDMP PDMP Reviewed: Not Reviewed Coding Level of Care Code Acute Code for [facility] Fwd Diagnoses Fracture of femoral neck, right S72.001A
--- NOTE | 2025-11-02 11:10 | XRR_ITS ---
PROCEDURE INFORMATION: Exam: XR Pelvis Exam date and time: 11/02/2025 11:44 AM Age: 80 years old Clinical indication: Pelvic pain; Prior surgery; Surgery date: Post-operative (0-2 days); Surgery type: Right hip hemiarthroplasty; Additional info: Postop TECHNIQUE: Imaging protocol: Radiologic exam of the pelvis. Views: 1 or 2 view. COMPARISON: CR (PELVIS, ) 11/01/2025 4:05 PM FINDINGS: Bones/joints: Bipolar right hemiarthroplasty is now in place. It is located. There is no fracture. Soft tissues: Postsurgical changes within the soft tissue about the right hip is present. XR/XR pelvis 1-2V* [id number] IMPRESSION: Postop right hip arthroplasty without immediate acute postoperative complicating feature.
--- NOTE | 2025-11-02 11:16 | PM.OP ---
Operative Report Date of procedure: November 02, 2025 Pre-op diagnosis: Right femoral neck fracture Post-op diagnosis: same Procedure done: Right hip hemiarthroplasty Surgeon: Josse Welch DO Estimated blood loss (mL): 25 Procedure: Right hip hemiarthroplasty Patient is brought to the operative suite after undergoing anesthesia was placed in the lateral decubitus position with the right side up. All areas impingement well-padded. Patient was prepped and draped in normal sterile fashion. Skin incision made over the lateral hip IT band split the abductors taken anteriorly. The capsule was taken down. Femoral neck cut was made approximately fingerbreadth above the lesser troches. The femoral head was then removed measured to be 51. The attention was then brought to the femur. The canal was broached to 6. A size 6 stem was inserted negative for neck length and a 51 head hip was reduced felt to be stable in all positions. Wounds irrigated. The deep layer abductor and capsule were closed with the FiberWire. IT band was then closed with 0 Vicryl. Vancomycin powder was placed in superficial layer. And the skin was closed with 2-0 Vicryl and cecelia. Sterile dressings were applied patient transferred to the PACU in stable addition.
--- NOTE | 2025-11-02 11:36 | ECG_ITS ---
[employer] Test Date: 2025-11-02 Pat Name: Dong Jackson Department: Room: 263 Gender: Male Building Custodial Supervisor: : 1945 Requested By: Lurdes Huang Order Number: [id number] Wilder MD: CONCEPCIÓN HOWELL Measurements Intervals [place] Rate: 122 P: 0 OK: 0 QRS: 34 QRSD: 91 T: -10 QT: 339 QTc: 483 Interpretive Statements ATRIAL FIBRILLATION WITH RAPID VENTRICULAR RESPONSE ABNORMAL RHYTHM ECG Compared to ECG 11/01/2025 21:41:38 Sinus rhythm no longer present Ventricular premature complex(es) no longer present ST (T wave) deviation no longer present Myocardial infarct finding no longer present Electronically Signed On 11-03-2025 22:58:09 RN RECOVERY by CONCEPCIÓN HOWELL [id number] [id number]
[2025-11-02] MEDS: pantoprazole 40 mg SDV IVP (17:51)
--- NOTE | 2025-11-02 20:30 | PM.PN ---
Subjective Subjective: Went to see the patient in the morning, tried multiple times however patient was in the OR and came later Vitals/I&O/Wt Last Vital Signs Temp 97.6 F 11/02/25 17:55 Pulse 94 11/02/25 17:55 Resp 18 11/02/25 14:05 BP 105/67 11/02/25 17:55 Pulse Ox 98 11/02/25 17:55 O2 Del Method Nasal Cannula 11/02/25 17:55 O2 Flow Rate 2 11/02/25 17:55 11/02/25 11/02/25 11/02/25 06:59 14:59 22:59 Intake Total 1050 / 1050 530 / 1580 Output Total 375 / 725 450 / 450 375 / 825 Balance -375 / -725 600 / 600 155 / 755 Weight last 48 hrs Weight 79.197 kg Weight 81.284 kg Physical Exam Narrative: Unable to examine or see the patient since she was in the OR for his right hip fracture management. Vitals and labs reviewed Urinary Catheter Management: Miller: Cath Placed During This Visit: yes Reason for Continuing Indwelling Catheter: Required Immobilization for Trauma or Surgery or Anesthesia Urinary Catheter Date of Insertion: 11/01/25 Urinary Catheter Time of Insertion: 18:36 Data 11/02/25 02:42 11/02/25 02:42 A&P Assessment and plan 1. Closed fracture of neck of right femur, initial encounter: Status post fall leading to right femoral neck fracture Ortho on board, and underwent surgical intervention 11/02/2025 with right hip hemiarthroplasty Initiate enoxaparin 40 mg as per VTE prophylaxis OT PT and incentive spirometer Continue adequate hydration Monitor vitals Monitor and correct electrolytes 2. Severe dementia without behavioral disturbance, psychotic disturbance, mood disturbance, or anxiety, unspecified dementia type: Continue home medicine donepezil and memantine. 3. Fall, initial encounter: OT PT therapy 4. Primary hypertension: Continue lisinopril 20 mg daily and hold if the systolic blood pressure is less than 100 5. Hyperlipidemia: Continue home dose statins after reconciliation and confirmation Plan: Resume rest of the home medication Of note: The patient is DNR as per the DPOA who is the , however for the sake of surgical intervention the patient was kept as full code and and later after surgery changed the CODE STATUS to DNR as per PDMP PDMP Reviewed: Not Reviewed Attestations Medical Necessity Statement*: Patient will stay over 2 midnights due to right hip fracture requiring surgical intervention, and later on OT PT therapy with further anticipation of placement to SNF? Time Spent in Patient Care: 16 - 35 minutes (>than 50% of time spent in counselling and/or direct pt care on unit). Other Attestations: Patient condition has been discussed at length with the patient/family, I have independently reviewed the chart labs imaging/diagnostics/EKG. the goals of care and code status with the patient/family/NOK/legal sales representative health insurance, and documented accordingly. I have reconciled the medications after confirmation/comorbidities/current clinical condition. The management has been done according to the current clinical condition with respect to patient goals of care and based on recommendations/guidelines. The patient/family has been informed about the current condition and further plan of care. Agreed with the plan of care and understood without any language barrier. Every effort was made to ensure accuracy of college or university department head. Any obvious errors or omissions should be clarified with the author of the document. Coding Level of Care Code Acute Code for [facility] Fwd Diagnoses Closed fracture of neck of right femur, initial encounter S72.001A Encounter type: initial encounter Fracture type: closed Severe dementia without behavioral disturbance, psychotic disturbance, mood disturbance, or anxiety, unspecified dementia type F03.C0 Dementia behavioral or psychological symptom: without behavioral, psychotic, or mood disturbance or anxiety Dementia severity: severe Dementia type: unspecified type Fall, initial encounter W19.XXXA Encounter type: initial encounter Primary hypertension I10 Hyperlipidemia E78.5
[2025-11-02] MEDS: HYDROcodone-acetaminophen 5-325 mg Tablet 1 TAB PO (23:20)
[2025-11-03] VITALS (11 sets, daily range): BP systolic 103–144; BP diastolic 58–86; PULSE 74–97; RESP 14–18; TEMP 36.5–37.3; O2SAT 91–97; BMI 28.4
[2025-11-03 04:53] LABS: Hematocrit 32.7 % (37-53); Hemoglobin 10.50 g/dL (11.27-16.99); Mean Corpuscular HGB Conc 32.1 g/dL (30-55); Mean Corpuscular Hemoglobin 30.4 pg (27-33); Mean Corpuscular Volume 94.8 fl (82-101); Nucleated Red Blood Cells % 0 %; Platelet Count 193 10^3/cmm (157-399); Red Blood Count 3.45 10^6/uL (3.85-5.65); White Blood Count 10.78 10^3/uL (3.29-11.43)
[2025-11-03] MEDS: ATORVASTATIN 20 MG TABLET PO (05:02)
[2025-11-03 05:11] LABS: Alanine Aminotransferase 13 U/L (0-41); Albumin Level 3.1 g/dL (3.5-5.2); Alkaline Phosphatase 49 U/L (40-130); Anion Gap 16.7 (5-19); Aspartate Amino Transferase 21 U/L (0-40); Blood Urea Nitrogen 16 mg/dL (8-23); Calcium 8.4 mg/dL (8.5-10.5); Carbon Dioxide 25 mmol/L (22-29); Chloride 95 mmol/L (98-107); Globulin 2.7 g/dL (1.3-4.6); Glucose 125 mg/dL (65-115); Osmolality Calculated 279 mOsm/kg (285-295); Potassium 3.7 mmol/L (3.5-5.1); Sodium 133 mmol/L (136-145); Total Protein 5.8 g/dL (6.6-8.7)
--- NOTE | 2025-11-03 13:13 | PC.NURSE ---
patient pulled mata out.
--- NOTE | 2025-11-03 14:40 | P.PN_ITS ---
Subjective 2 Subjective: patient seen in the morning, stable and did not voice any complains having cognitive impairment however interacts and understands adequately when given directions and questioned about how he is feeling. He has mentioned that he has this right hip surgery but is doing well and having adequate appetite. Vitals/I&O/Wt Last Vital Signs Temp 98.3 F 11/03/25 11:24 Pulse 86 11/03/25 11:24 Resp 18 11/03/25 11:24 BP 104/64 11/03/25 11:24 Pulse Ox 91 11/03/25 11:24 O2 Del Method Room Air 11/03/25 11:24 O2 Flow Rate 2 11/03/25 00:00 11/02/25 11/03/25 11/03/25 22:59 06:59 14:59 Intake Total 1416.25 / 2466.25 250 / 2716.25 1770 / 1770 Output Total 375 / 825 200 / 200 Balance 1041.25 / 1641.25 250 / 1891.25 1570 / 1570 Weight last 48 hrs Weight 87.317 kg Weight 79.197 kg Weight 81.284 kg Physical Exam 2 Narrative: General: Alert and oriented to self only, lying comfortably without any distress HEENT: Normocephalic, atraumatic, grossly unremarkable exam Cardio: normal rate rhythm, normal S1-S2 without any murmurs, rubs, or gallops and JVD normal Respiratory: normal vascular breathing on auscultation with mild wheezes but no stridor or rhonchi GI: Abdomen soft, nontender, nondistended, normoactive bowel sounds present all 4 quadrants, Neuro: Gross motor and sensory examination unremarkable, Behavior: Appropriate and cooperative Extremities: Adequate palpable pulses, mild trace edema, and having right-sided hip hemiarthroplasty, surgery site unremarkable Urinary Catheter Management: Miller: Cath Placed During This Visit: yes, but has since been removed by the nurse Reason for Continuing Indwelling Catheter: Decision to DC Catheter Urinary Catheter Date of Insertion: 11/01/25 Urinary Catheter Time of Insertion: 18:36 Date Urinary Catheter Removed: 11/03/25 Time Urinary Catheter Discontinued: 13:13 Data 11/03/25 03:56 11/03/25 03:56 A&P Assessment and plan 1. Closed fracture of neck of right femur, initial encounter: Status post fall leading to right femoral neck fracture Ortho on board, and underwent surgical intervention 11/02/2025 with right hip hemiarthroplasty Initiate enoxaparin 40 mg as per VTE prophylaxis OT PT and incentive spirometer Continue adequate hydration Monitor vitals Monitor and correct electrolytes 2. Severe dementia without behavioral disturbance, psychotic disturbance, mood disturbance, or anxiety, unspecified dementia type: Continue home medicine donepezil and memantine. 3. Fall, initial encounter: OT PT therapy 4. Primary hypertension: Continue lisinopril 20 mg daily and hold if the systolic blood pressure is less than 100 5. Hyperlipidemia: Continue home dose statins after reconciliation and confirmation 6. Wheezing: Patient was having mild wheezing, fluids held Nebulization as per evaluation, RT on board Plan: Resume rest of the home medication Of note: The patient is DNR as per the DPOA who is the , however for the sake of surgical intervention the patient was kept as full code and and later after surgery changed the CODE STATUS to DNR as per PDMP PDMP Reviewed: Not Reviewed Attestations 2 Medical Necessity Statement*: Patient will stay over midnight due to right hip fracture requiring surgical intervention, and later on OT PT therapy with further anticipation of placement to SNF? Time Spent in Patient Care: 16 - 35 minutes (>than 50% of time sp ent in counselling and/or direct pt care on unit) . Other Attestations: Patient condition has been discussed at length with the patient/family, I have independently reviewed the chart labs imaging/diagnostics/EKG. the goals of care and code status with the patient/family/NOK/legal termite control representative, and documented accordingly. I have reconciled the medications after confirmation/comorbidities/current clinical condition. The management has been done according to the current clinical condition with respect to patient goals of care and based on recommendations/guidelines. The patient/family has been informed about the current condition and further plan of care. Agreed with the plan of care and understood without any language barrier. Every effort was made to ensure accuracy of slot machine repairer. Any obvious errors or omissions should be clarified with the author of the document. Coding Level of Care Code 95469 Diagnoses Closed fracture of neck of right femur, initial encounter S72.001A Encounter type: initial encounter Fracture type: closed Severe dementia without behavioral disturbance, psychotic disturbance, mood disturbance, or anxiety, unspecified dementia type F03.C0 Dementia behavioral or psychological symptom: without behavioral, psychotic, or mood disturbance or anxiety Dementia severity: severe Dementia type: unspecified type Fall, initial encounter W19.XXXA Encounter type: initial encounter Primary hypertension I10 Hyperlipidemia E78.5 Wheezing R06.2
[2025-11-03] MEDS: oxyCODONE 5 mg IR Tab/Cap PO (15:00)
[2025-11-03] MEDS: pantoprazole 40 mg SDV IVP (17:57)
[2025-11-04 04:00] VITALS: BP 107/54; PULSE 90; RESP 16; TEMP 37.1; O2SAT 97
[2025-11-04 05:00] LABS: Hematocrit 28.4 % (37-53); Hemoglobin 9.20 g/dL (11.27-16.99); Mean Corpuscular HGB Conc 32.4 g/dL (30-55); Mean Corpuscular Hemoglobin 31.2 pg (27-33); Mean Corpuscular Volume 96.3 fl (82-101); Nucleated Red Blood Cells % 0 %; Platelet Count 173 10^3/cmm (157-399); Red Blood Count 2.95 10^6/uL (3.85-5.65); White Blood Count 9.12 10^3/uL (3.29-11.43)
[2025-11-04 05:22] LABS: Alanine Aminotransferase 12 U/L (0-41); Albumin Level 2.9 g/dL (3.5-5.2); Alkaline Phosphatase 50 U/L (40-130); Anion Gap 14.1 (5-19); Aspartate Amino Transferase 18 U/L (0-40); Blood Urea Nitrogen 14 mg/dL (8-23); Calcium 8.4 mg/dL (8.5-10.5); Carbon Dioxide 25 mmol/L (22-29); Chloride 100 mmol/L (98-107); Globulin 2.6 g/dL (1.3-4.6); Glucose 113 mg/dL (65-115); Osmolality Calculated 281 mOsm/kg (285-295); Potassium 4.1 mmol/L (3.5-5.1); Sodium 135 mmol/L (136-145); Total Protein 5.5 g/dL (6.6-8.7)
[2025-11-04] MEDS: HYDROcodone-acetaminophen 5-325 mg Tablet 1 TAB PO (06:34)
[2025-11-04] MEDS: ATORVASTATIN 20 MG TABLET PO (06:35)
[2025-11-04 07:24] VITALS: BP 146/84; PULSE 90; RESP 14; TEMP 37.1; O2SAT 97
--- NOTE | 2025-11-04 08:44 | P.PN_ITS ---
Subjective 2 Subjective: Patient resting bed comfortably no complaints Vitals/I&O/Wt Last Vital Signs Temp 98.8 F 11/04/25 07:24 Pulse 90 11/04/25 07:24 Resp 14 11/04/25 07:24 BP 146/84 11/04/25 07:24 Pulse Ox 97 11/04/25 07:24 O2 Del Method Room Air 11/04/25 07:24 O2 Flow Rate 2 11/03/25 16:41 11/03/25 11/04/25 11/04/25 22:59 06:59 14:59 Intake Total 560 / 2330 Balance 560 / 2130 Weight last 48 hrs Weight 190 lb 1.6 oz Weight 192 lb 8 oz Physical Exam 2 Narrative: Resting bed comfortably Urinary Catheter Management: Miller: Cath Placed During This Visit: yes, but has since been removed by the nurse Reason for Continuing Indwelling Catheter: Decision to DC Catheter Urinary Catheter Date of Insertion: 11/01/25 Urinary Catheter Time of Insertion: 18:36 Date Urinary Catheter Removed: 11/03/25 Time Urinary Catheter Discontinued: 13:13 Data 11/04/25 04:47 11/04/25 04:47 A&P Assessment and plan 1. Closed fracture of neck of right femur, initial encounter: Postop day #2 right hip hemiarthroplasty PDMP PDMP Reviewed: Not Reviewed Attestations 2 Medical Necessity Statement*: Per primary service Coding Level of Care Code Acute Code for Chg Fwd Diagnoses Closed fracture of neck of right femur, initial encounter S72.001A Encounter type: initial encounter Fracture type: closed
[2025-11-04 11:26] VITALS: BP 86/56; PULSE 76; RESP 18; TEMP 36.5; O2SAT 92
[2025-11-04 11:33] VITALS: PULSE 76; RESP 18; O2SAT 92
--- NOTE | 2025-11-04 13:44 | PC.SOCIAL ---
IMM Updated Updated pt on IMM. No questions voiced. Provided pt a copy. Initialed, dated, & timed a copy & placed in chart.
[2025-11-04 15:00] LABS: SARS Covid-2 Antigen Negative (Negative)
--- NOTE | 2025-11-04 16:28 | P.DS_ITS ---
Discharge Providers Date of Admission: 11/01/25 17:45 Date of Discharge: November 04, 2025 Attending Provider at Admission: Mohan Thorpe MD Attending Provider at Discharge: Harry John MD Primary Care Provider: Anish Lim MD Diagnoses at Discharge Discharge Diagnosis 1. Closed fracture of neck of right femur, initial encounter: Reason for Visit Reason for Visit: R HIP PAIN, FALL Brief History: As per the previous retrospective notes and the admitting physician H&P As per the retrospective notes review, and the patient's send the patient is having mild to moderate cognitive impairment and does not recall much of his events and coming from the assisted Dong Jackson is a 80 year old male with past medical history of cognitive impairment, hypertension presented from [facility] as per the after a fall. He was having right hip pain. In the ER found to have right hip fracture.Discussed with orthopedic on-call, for intervention tomorrow. As per the , the patient did not have such falls, he did not report any chest pain, chest pressure, diarrhea, nausea or vomiting, abdominal pain, dizziness, syncope or any presyncope. Rest of the review of system is unremarkable Hospital Course Hospital Course During patient hospital stay he was admitted as a case of right hip fracture, underwent right hip surgery with right hip hemiarthroplasty without any complication. The patient CODE STATUS is DNR however for the sake of surgery the family/ proceeded to be full code and after surgery to keep him as DNR. The patient also had orthopedic evaluation and after stabilization and further review of the lab and diagnostics, and Ortho clearance the patient medication were reconciled accordingly and he was sent back to the assisted with adequate instructions. Patient 1 EKG showed atrial fibrillation which was more or less aberrant as well? However patient with dementia and recent surgery and possibility of recurrent falls put him at risk of critical bleeding. He was di scharged on aspirin which he was already taken and enoxaparin for 30 days with primary care follow-up for further management. Patient was provided with medications that were were reconciled after con firmation and according to patient comorbidities and appropriate follow-ups and referrals were provided at the time of discharge/transfer. patient understanding/establishing the stability of the current condition was considered during discharge/Transfer with all the risk and benefits thoroughly explained. Patient condition has been discussed at length with the patient/family, I have independently reviewed the chart labs imaging/diagnostics/EKG. the goals of care and code status with the patient/family/NOK/legal financial services representative, and documented accordingly. The management has been done according to the current clinical condition with respect to patient goals of care and based on recommendations/guidelines. The patient/family has been informed about the current condition and further plan of care. Agreed with the plan of care and understood without any language barrier. Every effort was made to ensure accuracy of environmental auditor. Any obvious errors or omissions should be clarified with the author of the document. Physical Exam Narrative: General: Alert and oriented to self only, lying comfortably without any distress HEENT: Normocephalic, atraumatic, grossly unremarkable exam Cardio: normal rate rhythm, normal S1-S2 without any murmurs, rubs, or gallops and JVD normal Respiratory: normal vascular breathing on auscultation with mild wheezes but no stridor or rhonchi GI: Abdomen soft, nontender, nondistended, normoactive bowel sounds present all 4 quadrants, Neuro: Gross motor and sensory examination unremarkable, Behavior: Appropriate and cooperative Extremities: Adequate palpable pulses, mild trace edema, and having right-sided hip hemiarthroplasty, surgery site unremarkable Urinary Catheter Management: Miller: Cath Placed During This Visit: yes, but has since been removed by the nurse Reason for Continuing Indwelling Catheter: Decision to DC Catheter Urinary Catheter Date of Insertion: 11/01/25 Urinary Catheter Time of Insertion: 18:36 Date Urinary Catheter Removed: 11/03/25 Time Urinary Catheter Discontinued: 13:13 Discharge Data Studies Completed and Pending Completed Studies During Hospitalization Category Date Time Status CT cervical spin wo con* [id number] Urgent Cat Scan 11/01/25 15:[address] head wo con* [id number] Urgent Cat Scan 11/01/25 15:50 Completed XR chest 1V portable [id number] Urgent Exams 11/01/25 15:50 Completed XR hip RT 2-3V wo/w pel* [id number] Stat Exams 11/01/25 15:50 Completed XR pelvis 1-2V* [id number] Routine Exams 11/02/25 11:10 Completed Radiology Impressions Cervical Spine CT 11/01/25 15:50 IMPRESSION: Multilevel degenerative changes. No acute abnormality identified. Chest X-Ray 11/01/25 15:50 IMPRESSION: No acute cardiopulmonary abnormality. Head CT 11/01/25 15:50 IMPRESSION: 1. No acute abnormality identified. 2. 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 3. Generalized involutional changes. Hip/Pelvis X-Ray 11/01/25 15:50 IMPRESSION: Right femoral neck fracture with mild displacement and impaction. Pelvis X-Ray 11/02/25 11:10 IMPRESSION: Postop right hip arthroplasty without immediate acute postoperative complicating feature. Laboratory Results WBC 9.12 10^3/uL (3.29-11.43) 11/04/25 04:47 RBC 2.95 10^6/uL (3.85-5.65) L 11/04/25 04:47 Hgb 9.20 g/dL (11.27-16.99) L 11/04/25 04:47 Hct 28.4 % (37-53) L 11/04/25 04:47 MCV 96.3 fl (82-101) 11/04/25 04:47 MCH 31.2 pg (27-33) 11/04/25 04:47 MCHC 32.4 g/dL (30-55) 11/04/25 04:47 RDW 14.7 % (12.1-15.1) 11/04/25 04:47 Plt Count 173 10^3/cmm (157-399) 11/04/25 04:47 MPV 10.9 fL (7.4-10.4) H 11/04/25 04:47 Neut % (Auto) 65.3 % 11/04/25 04:47 Lymph % (Auto) 20.6 % 11/04/25 04:47 [place] % (Auto) 13.5 % 11/04/25 04:47 Eos % (Auto) 0.3 % 11/04/25 04:47 Baso % (Auto) 0.1 % 11/04/25 04:47 Neut # (Auto) 5.95 10^3/uL (1.8-7.7) 11/04/25 04:47 Lymph # (Auto) 1.9 10^3/uL (0.8-4.8) 11/04/25 04:47 [place] # (Auto) 1.2 10^3/uL (0.2-0.9) H 11/04/25 04:47 Eos # (Auto) 0.0 10^3/uL (0.0-0.8) 11/04/25 04:47 Baso # (Auto) 0.0 10^3/uL (0.0-0.1) 11/04/25 04:47 Nucleated RBC % (auto) 0 % 11/04/25 04:47 Nucleated RBCs # 0.0 /100WBC 11/04/25 04:47 Sodium 135 mmol/L (136-145) L 11/04/25 04:47 Potassium 4.1 mmol/L (3.5-5.1) 11/04/25 04:47 Chloride 100 mmol/L (98-107) 11/04/25 04:47 Carbon Dioxide 25 mmol/L (22-29) 11/04/25 04:47 Anion Gap 14.1 (5-19) 11/04/25 04:47 BUN 14 mg/dL (8-23) 11/04/25 04:47 Creatinine 0.8 mg/dL (0.7-1.2) 11/04/25 04:47 GFR Calculation Not Reportable 11/04/25 04:47 Glucose 113 mg/dL (65-115) 11/04/25 04:47 POC Glucose 154 mg/dL (70-110) H 11/04/25 11:04 Calculated Osmolality 281 mOsm/kg (285-295) L 11/04/25 04:47 Calcium 8.4 mg/dL (8.5-10.5) L 11/04/25 04:47 Total Bilirubin 0.4 mg/dL (0.15-1.2) 11/04/25 04:47 AST 18 U/L (0-40) 11/04/25 04:47 ALT 12 U/L (0-41) 11/04/25 04:47 Alkaline Phosphatase 50 U/L (40-130) 11/04/25 04:47 Creatine Kinase 90 U/L (39-308) 11/01/25 16:28 Troponin T Baseline 34 ng/L (0-15) H 11/01/25 16:28 Troponin T 60 Minute 36.98 ng/L (0-15) H 11/01/25 18:11 Delta Troponin T 2.98 ABS# (0-10) 11/01/25 18:11 Troponin T Hi Sens 6Hr 40.59 ng/L (0-15) H 11/01/25 22:47 Troponin T Hi Sens 6Hr Delta 6.59 ng/L (0-12) 11/01/25 22:47 Total Protein 5.5 g/dL (6.6-8.7) L 11/04/25 04:47 Albumin 2.9 g/dL (3.5-5.2) L 11/04/25 04:47 Globulin 2.6 g/dL (1.3-4.6) 11/04/25 04:47 TSH 1.34 uIU/mL (0.27-4.20) 11/01/25 16:28 Urine Color Yellow (Yellow) 11/01/25 18: Urine Appearance Cloudy (CLEAR) A 11/01/25 18: Urine pH 7.0 (5-7) 11/01/25 18:33 Ur Specific [place] 1.021 (1.005-1.030) 11/01/25 18:33 Urine Protein Trace (Negative) A 11/01/25 18: Urine Glucose (UA) Negative (Normal) 11/01/25 18:33 Urine Ketones 2+ (Negative) H 11/01/25 18:33 Urine Blood Negative (Negative) 11/01/25 18: Urine Nitrate Negative (Negative) 11/01/25 18: Urine Bilirubin Negative (Negative) 11/01/25 18: Urine Urobilinogen 1.0 mg/dL (Negative) 11/01/25 18:33 Ur Leukocyte Esterase Negative (Negative) 11/01/25 18: Urine RBC 3-5 /hpf (0-2) 11/01/25 18:33 Urine WBC 0-5 /hpf (0-5) 11/01/25 18:33 Ur Squamous Epith Cells 0-5 /hpf (0-5) 11/01/25 18: Amorphous Sediment Not Reportable 11/01/25 18:33 Urine Bacteria None seen /hpf (NONE) 11/01/25 18: Hyaline Casts 0.81 /lpf 11/01/25 18:33 SARS-CoV-2 Ag (Rapid) Negative (Negative) 11/04/25 14:29 Vitals Last Vital Signs Temp 97.7 F 11/04/25 11:26 Pulse 76 11/04/25 11:33 Resp 18 11/04/25 11:33 BP 86/56 11/04/25 11:26 Pulse Ox 92 11/04/25 11:33 O2 Del Method Room Air 11/04/25 11:33 O2 Flow Rate 2 11/03/25 16:41 Discharge Plan Discharge Patient Disposition: Xfer SNF Condition: Stable Prescriptions: New hydrocodone-acetaminophen 5-325 mg Tablet 1 tab PO Q4H PRN (Reason: Moderate To Severe Pain) 4 Days Qty: 15 0RF enoxaparin 30 mg/0.3 mL syringe 30 mg SUBCUT Q24H 35 Days Qty: 10.5 0RF Continued lisinopril 20 mg tablet 1 tab PO DAILY memantine 10 mg tablet 10 tab PO BID pravastatin 40 mg tablet 40 tab PO DAILY donepezil 10 mg tablet 10 tab PO DAILY acetaminophen 325 mg Tablet 650 mg PO Q6H PRN (Reason: pain/increased temp) albuterol sulfate 2.5 mg /3 mL (0.083 %) solution for nebulization 2.5 mg continuous nebulization Q6H PRN (Reason: Wheezing) trazodone 50 mg tablet 50 mg PO BEDTIME melatonin 3 mg Tablet 3 mg PO BEDTIME magnesium hydroxide [Milk of Magnesia] 400 mg/5 mL Suspension 30 ml PO DAILY PRN (Reason: Constipation) bisacodyl [Dulcolax (bisacodyl)] 10 mg Suppository 10 mg DE DAILY PRN (Reason: Constipation) Fleet Enema 19-7 gram/118 mL Enema 118 ml DE DAILY PRN (Reason: Constipation) aspirin 81 mg tablet,chewable 81 mg PO DAILY bisacodyl [Dulcolax (bisacodyl)] 5 mg Tablet,Delayed Release (Dr/Ec) 10 mg PO DAILY PRN (Reason: Constipation) fluoxetine 20 mg capsule 20 mg PO DAILY multivitamin with folic acid [Daily-Kylah (with folic acid)] 400 mcg tablet 1 tab PO DAILY Card Puncher OK for DC: Orthopedics Discharge Order = DC NOW: Discharge Order (Routine); Ordered 11/04/25 Ordered By: Harry John Referrals: [facility] [place] [facility] [Outside] Josse Welch DO [Physician, Orthopedics] - 11/14/25 8:15 am Anish Lim MD [Primary Care Provider, Family Practice] - 1 week Referral Note: For follow-up, I will review EKGs as well and to discuss further management Jose Lanza M.D [Physician, Cardiology] - 2 weeks Referral Note: Patient had 1 EKG showing possible atrial fibrillation however due to cognitive impairment and possible recurrent falls that may lead to significant or critical bleeding, patient already on aspirin and discharged on enoxaparin 30 mg daily status post hip surgery. Currently suggest further management as outpatient Discharge Diet: Advance as tolerated Discharge Activity: Limit activity as instructed Patient Instructions: Hydrocodone/Acetaminophen (By mouth), Enoxaparin (By injection), Acute Wound Care (DC), Opioid Safety, Post Anesthesia Care, Patient Portal & Eduardo Instructions Activity Restrictions/Additional Instructions: Weight-bear as tolerated follow-up Ortho clinic 2 weeks DVT prophylaxis : Aspirin 81 mg Discharge Attestations Time Spent in Discharge Care*: greater than 30 min Specific Discharge Activities: educating patient, educating and/or supporting family/caregiver, discussing with pcp/other providers, discussing with family service caseworker/social workers/dc planners, documenting/other paperwork and evaluating patient/reviewing data Status at Discharge: Cognitive status at discharge: mildly impaired cognition , Behavioral status at discharge: dependent in ADL's , Functional status at discharge: other assisted ambulation , Overall status at discharge: patient is progressing back to baseline Quality Metrics Clinical Quality Measures [ No reported AMI, CVA or VTE this stay] Coding Level of Care Code Acute Code for Chg Fwd Diagnoses Closed fracture of neck of right femur, initial encounter S72.001A Encounter type: initial encounter Fracture type: closed
== END 2025-11-04 15:46 | disposition skilled nursing facility (03) | DRG 522 ==
LOC: ER 18:02 → ER IP 18:05 → MEDSURG 18:21
PROVIDERS: Orthopaedic Surgery; Admitting Provider Internal Medicine; Emergency Provider Physician Assistant; PCP Family Medicine; Visit Provider Student in an Organized Health Care Education/Training Program
PROC: 0SRR0JZ Replacement of Right Hip Joint, Femoral Surface with Synthetic Substitute, Open Approach (ICD-10-PCS; principal; 2025-11-02 10:05)
DX: S72.001A Fracture of unspecified part of neck of right femur, initial encounter for closed fracture (principal); W19.XXXA Unspecified fall, initial encounter; Y92.129 Unspecified place in nursing home as the place of occurrence of the external cause; F03.C0 Unspecified dementia, severe, without behavioral disturbance, psychotic disturbance, mood disturbance, and anxiety; I10 Essential (primary) hypertension; E78.5 Hyperlipidemia, unspecified; Z66 Do not resuscitate; R06.2 Wheezing
CPT/HCPCS: 36415; 36416; 51702; 70450; 71045; 72125; 72170; 73502; 80053; 81001; 82550; 82962; 84443; 84484; 85025; 87426; 93005; 94640; 94664; 96372; 97110; 97116; 97161; 97167; 97530; 99285; C1776; J1100; J1650; J2371; J2405; J2470; J2704; J3010; J3373; J3490; J7030; J7120; J9999